=== PATIENT | male | born 1950 | race Caucasian/White ===

== ENCOUNTER → 2017-05-12 | Outpatient (CLI) | payer OTHER ==
[~2017-05-12] MED LIST: GLC500 PO; GLCSR5 PO; INSULIN REG; LRT5 PO; SIMV20TA2 PO
[2017-05-12 14:50] LABS: ALT/SGPT 28 U/L (12-78); AST/SGOT 20 U/L (15-37)
== END | disposition home or self-care (01) ==
LOC: C.LAB1850 12:41
PROVIDERS: ATTEND Internal Medicine Cardiovascular Disease
DX: I25.119 Atherosclerotic heart disease of native coronary artery with unspecified angina pectoris (principal); E78.5 Hyperlipidemia, unspecified; I77.810 Thoracic aortic ectasia; I10 Essential (primary) hypertension; R06.09 Other forms of dyspnea

== ENCOUNTER 2017-06-22 00:28 | Emergency (ER) | payer OTHER ==
[~2017-06-22] VITALS: Ht 180.3 cm; Wt 123.2 kg
[2017-06-22 00:31] VITALS: TEMP 36.8; Ht 180.3 cm; Wt 123.2 kg
[2017-06-22] MEDS ORDERED: SODIUM CHLORIDE 0.9% 500ML 500 ML IV STA (00:41)
[2017-06-22] MEDS ORDERED: MoRPHine SULFATE 4 MG/ML 1 ML CARP\\VIAL IV STA (00:41)
[2017-06-22] MEDS ORDERED: ONDANSETRON INJ 2 MG/ML 2 ML VIAL IV STA (00:41)
[2017-06-22 01:02] VITALS: O2SAT 95
[2017-06-22 01:08] LABS: BASO % 0.8 %; BASO ABS # 0.04 K/uL (0-0.2); COMPLETE YES; EOS % 2.6 %; HEMATOCRIT 38.3 % (42-52); IG% 0.4 %; LYMPH ABS # 2.07 K/uL (1.2-3.4); MEAN CELL VOLUME 86.1 fL (80-100); MEAN CORPUSCULAR HEMOGLOBIN 29.4 pg (25-34); MEAN CORPUSCULAR HGB CONC 34.2 g/dl (32-36); MEAN PLATELET VOLUME 10.1 fL (7.4-10.4); MONO % 10.7 %; NEUT % 46.5 %; PLATELET COUNT 111 K/uL (130-400); RED BLOOD COUNT 4.45 M/uL (4.7-6.1); WHITE BLOOD COUNT 5.31 K/uL (4.8-10.8)
[2017-06-22] MEDS ORDERED: GLC/500 PO (01:27)
[2017-06-22] MEDS ORDERED: LSN25 PO (01:27)
[2017-06-22] MEDS ORDERED: CRS/10 PO (01:27)
[2017-06-22] MEDS ORDERED: NTRGSL/4 UT (01:27)
[2017-06-22] MEDS ORDERED: RANO500T PO (01:28)
[2017-06-22] MEDS ORDERED: CLOP1TAB15 PO (01:28)
[2017-06-22] MEDS ORDERED: ASPI81TA28 PO (01:29)
[2017-06-22] MEDS ORDERED: METO100T44 PO (01:29)
[2017-06-22 01:31] LABS: ISTAT IONIZED CALCIUM 1.13 mmol/l (1.12-1.32)
[2017-06-22] MEDS ORDERED: CHOL1TAB42 PO (01:31)
[2017-06-22] MEDS ORDERED: HMLI7525 SC (01:31)
[2017-06-22] MEDS ORDERED: [UNRECOGNIZED DRUG - CODE] INJ (01:31)
[2017-06-22] MEDS ORDERED: POTA-74 PO (01:31)
[2017-06-22] MEDS ORDERED: FRS/40 PO (01:32)
[2017-06-22] MEDS ORDERED: OPTIRAY 320 IV PRN (01:45)
[2017-06-22 01:49] LABS: ALKALINE PHOSPHATASE 78 U/L (45-117); ALT/SGPT 23 U/L (12-78); AST/SGOT 18 U/L (15-37); BLOOD UREA NITROGEN 18 mg/dl (7-18); BUN/CREATININE RATIO 15.6 (10-20); CALCIUM 8.9 mg/dl (8.5-10.1); CARBON DIOXIDE 21 mmol/L (21-32); CHLORIDE 109 mmol/L (98-107); CREATININE 1.17 mg/dl (0.60-1.40); GLUCOSE 213 mg/dl (70-99); POTASSIUM 4.2 mmol/L (3.5-5.1); SODIUM 140 mmol/L (136-145)
[2017-06-22] MEDS ORDERED: OXYC1TAB3 PO (01:51)
[2017-06-22] MEDS ORDERED: ONDA4TAB10 SL (01:51)
[2017-06-22] MEDS ORDERED: ONDANSETRON HOME PACK 4MG OD TAB ONE (01:57)
[2017-06-22] MEDS ORDERED: OXYCODONE IR HOME PACK PO ONE ×2 (01:57→02:00)
[2017-06-22] MEDS ORDERED: ONDANSETRON HOME PACK 4MG OD TAB PO ONE (02:00)
--- NOTE | 2017-06-22 03:01 | EMERGENCY ROOM VISIT NOTE ---
History First contact with patient: 00:37 Chief Complaint: BACK PAIN Stated Complaint: PAIN IN BACK History of Present Illness The patient is a 66 year old male who presents to the Emergency Room with complaints of left side and lower abdominal pain for the past several hours described as aching, ranging in severity 6 out of 10. Nothing makes it better or worse. It does not radiate. Patient has had diverticulitis and kidney stones before. He states this feels somewhat like his diverticulitis. Colonoscopy earlier this year showed diverticuli with polyps. Patient denies chest pain, dyspnea, fever, chills, nausea, vomiting, diarrhea, urinary symptoms , testicular pain, penile pain. Patient states he has an aortic aneurysm that is 4.[address] Hart. He last saw him 2 months ago. Patient just moved to the area. Review of Systems See HPI for pertinent positives & negatives. A total of 10 systems reviewed and were otherwise negative. Past Medical/Surgical History Kidney stones, diabetes, diverticulitis, coronary disease, aortic aneurysm that is 4.5 cm, appendectomy Social History Smoking Status: Former Smoker Alcohol Use: occasionally Drug Use: none Marital Status: Housing Status: lives with family Current/Historical Medications Scheduled Aspirin (Aspirin Ec), 81 MG PO QPM Bevacizumab (Avastin), 1 DOSE INJ Q 5-6 WEEKS Cholecalciferol (Vitamin D), 5,000 UNIT PO DAILY Clopidogrel (Plavix), 75 MG PO QPM Furosemide (Lasix), 40 MG PO 3XWK Insulin Lispro 75/25 (Humalog Mix 75/25), 44 UNITS SC AMPM Lisinopril (Lisinopril), 2.5 MG PO QAM Metformin Hcl (Glucophage), 500 MG PO QPM Metoprolol Succ (Toprol Xl) (Toprol-Xl ), 100 MG PO BID Nitroglycerin (Nitrostat), 0.4 MG UT UD Ondasetron Odt (Zofran Odt), 4 MG SL Q6H Ranolazine (Ranexa), 500 MG PO AMPM Rosuvastatin Calcium (Crestor), 10 MG PO QPM Scheduled PRN Oxycodone Immediate Rel Tab (Roxicodone Ir), 1-2 TAB PO Q4H PRN for Severe Pain Miscellaneous Medications Potassium Chloride (Potassium Chloride Er), 10 MEQ PO Physical Exam Vital Signs Date Time Temp Pulse Resp B/P (MAP) Pulse Ox O2 Delivery O2 Flow Rate FiO2 06/22/17 01:53 73 18 137/78 95 Room Air 06/22/17 01:02 95 Room Air 06/22/17 01:02 77 06/22/17 00:31 36.8 71 18 168/78 96 Room Air Physical Exam VITALS: Vitals are noted on the nurse's note and reviewed by myself. Vital signs hypertensive GENERAL: Pleasant male, in no acute distress, nondiaphoretic, well-developed well-nourished. SKIN: The skin was without rashes, erythema, edema, or bruising. There is no tenting of the skin. Capillary reflex less than 2 seconds. HEAD: Normocephalic atraumatic. EARS: External auditory canals clear, tympanic membranes pearly salinas without erythema or effusion bilaterally. EYES: Pupils equal round and reactive to light and accommodation. Conjunctivae without injection, sclerae without icterus. Extraocular movements intact. NOSE: Patent, turbinates without inflammation or discharge. MOUTH: Mucous membranes moist. Pharynx without erythema or exudate. Uvula midline. Airway patent. Tongue does not deviate. NECK: Supple without nuchal rigidity. No lymphadenopathy. No thyromegaly. Cervical spine is nontender. No JVD. HEART: Regular rate and rhythm without murmurs gallops or rubs. LUNGS: Clear to auscultation bilaterally without wheezes, rales or rhonchi. No dullness to percussion. No retractions or accessory muscle use. ABDOMEN: Positive bowel sounds x 4. Normal tympanic percussion. Soft, protuberant, obese, tender to palpation left lower quadrant, no CVA tenderness, without masses or organomegaly. Oliva sign negative. No guarding or rebound tenderness. MUSCULOSKELETAL: No muscle atrophy, erythema, or edema noted. NEURO: Patient was alert and oriented to person place and time. Normal sensation to light and sharp touch. No focal neurological deficits. Medical Decision & Procedures Laboratory Results 06/22/17 00:50 Red Blood Count 4.45, Mean Corpuscular Volume 86.1, Mean Corpuscular Hemoglobin 29.4, Mean Corpuscular Hemoglobin Concent 34.2, Mean Platelet Volume 10.1, Neutrophils (%) (Auto) 46.5, Lymphocytes (%) (Auto) 39.0, Monocytes (%) (Auto) 10.7, Eosinophils (%) (Auto) 2.6, Basophils (%) (Auto) 0.8, Neutrophils # (Auto ) 2.47, Lymphocytes # (Auto) 2.07, Monocytes # (Auto) 0.57, Eosinophils # (Auto ) 0.14, Basophils # (Auto) 0.04 06/22/17 00:50 Test 06/22/17 00:41 06/22/17 00:50 06/22/17 01:17 White Blood Count 5.31 K/uL (4.8-10.8) Red Blood Count 4.45 M/uL (4.7-6.1) Hemoglobin 13.1 g/dL (14.0-18.0) Hematocrit 38.3 % (42-52) Mean Corpuscular Volume 86.1 fL (80-100) Mean Corpuscular Hemoglobin 29.4 pg (25-34) Mean Corpuscular Hemoglobin Concent 34.2 g/dl (32-36) Platelet Count 111 K/uL (130-400) Mean Platelet Volume 10.1 fL (7.4-10.4) Neutrophils (%) (Auto) 46.5 % Lymphocytes (%) (Auto) 39.0 % Monocytes (%) (Auto) 10.7 % Eosinophils (%) (Auto) 2.6 % Basophils (%) (Auto) 0.8 % Neutrophils # (Auto) 2.47 K/uL (1.4-6.5) Lymphocytes # (Auto) 2.07 K/uL (1.2-3.4) Monocytes # (Auto) 0.57 K/uL (0.11-0.59) Eosinophils # (Auto) 0.14 K/uL (0-0.5) Basophils # (Auto) 0.04 K/uL (0-0.2) RDW Standard Deviation 41.5 fL (36.4-46.3) RDW Coefficient of Variation 13.2 % (11.5-14.5) Immature Granulocyte % (Auto) 0.4 % Immature Granulocyte # (Auto) 0.02 K/uL (0.00-0.02) Est Creatinine Clear Calc Drug Dose 84.1 ml/min Estimated GFR () 75.4 Estimated GFR (Non- 65.0 BUN/Creatinine Ratio 15.6 (10-20) Calcium Level 8.9 mg/dl (8.5-10.1) Total Bilirubin 0.4 mg/dl (0.2-1) Direct Bilirubin mg/dl (0-0.2) Aspartate Amino Transf (AST/SGOT) 18 U/L (15-37) Alanine Aminotransferase (ALT/SGPT) 23 U/L (12-78) Alkaline Phosphatase 78 U/L (45-117) Total Protein 7.8 gm/dl (6.4-8.2) Albumin 3.6 gm/dl (3.4-5.0) Lipase 350 U/L (73-393) Chemistry Specimen Hemolysis Bedside Hemoglobin 15.0 g/dl (14.0-18.0) Bedside Hematocrit 44 % (42-52) Bedside Sodium 142 mEq/L (135-144) Bedside Potassium 3.7 mEq/L (3.3-5.0) Bedside Chloride 110 mEq/L (101-112) Bedside Total CO2 21 mEq/l (24-31) Anion Gap 17.0 mmol/L (16-25) Bedside Blood Urea Nitrogen 19 mg/dl (7-18) Bedside Creatinine 1.0 mg/dl (0.6-1.3) Bedside Glucose (other) 205 mg/dl (70-99) Bedside Ionized Calcium (Oliver) 1.13 mmol/l (1.12-1.32) Medications Administered Medications (Trade) Dose Ordered Sig/Chong Route Start Time Stop Time Status Last Admin Dose Admin Morphine Sulfate (MoRPHine SULFATE INJ) 4 mg NOW STAT IV 06/22/17 00:41 06/22/17 00:45 DC 06/22/17 00:53 4 MG Ondansetron HCl (Zofran Inj) 4 mg NOW STAT IV 06/22/17 00:41 06/22/17 00:45 DC 06/22/17 00:52 4 MG Sodium Chloride 500 ml @ 999 mls/hr Q31M STAT IV 06/22/17 00:41 06/22/17 01:11 DC 06/22/17 00:52 999 MLS/HR ED Course Prior records/ancillary studies reviewed. Triage Nursing notes reviewed. Additional history obtained from the family. The patient's history was concerning for left lower quadrant pain. Differential diagnosis: Etiologies such as renal colic, appendicitis, diverticulitis, mesenteric ischemia, aortic pathology, infections, inflammatory bowel disease, PUD, biliary pathology, UTI, as well as others were entertained. Physical examination findings: As above. ER treatment provided: IV fluids, morphine, Zofran On reassessment the patient felt better. Diagnostic interpretation by me: The labs revealed no leukocytosis.. There was no sign of UTI. Hyperglycemia without DKA Imaging studies: CT of the abdomen and pelvis as read by stat radiology and reviewed by myself and concerning for left renal colic It appears that the patient has isolated renal colic from a left sided stone. Patient's pain was under control. He was advised to take medications as directed and to follow-up urology in a few days and to strain his urine until stone passes. He is advised to return to the ER immediately for fevers, vomiting, severe pain, worsening signs or symptoms or as needed. Patient does not have acute abdomen on exam. He is well-appearing. He is tolerating fluids. He was advised to monitor his blood sugar. By the evaluation outlined above emergent etiologies such as appendicitis, diverticulitis, mesenteric ischemia, aortic pathology, infections, inflammatory bowel disease, PUD, biliary pathology, UTI, as well as others were deemed relatively unlikely. The pt informed about the findings as listed above. All questions were answered and pleased with the treatment. Return instructions were outlined and the patient was discharged in stable condition. Outpatient prescription management: Oxy IR 5mg 1-2 po Q4 hrs prn Zofran Referral: The pt was referred to [facility] for follow up care regarding their stone. or The patient was referred back to their primary care physician for follow-up in 2 to 3 days for a recheck of the current condition. Case reviewed with my attending Medical Decision As above Medication Reconcilliation Current Medication List: was personally reviewed by me Blood Pressure Screening Patient's blood pressure: Elevated blood pressure Blood pressure disposition: Elevated BP felt to be situational Impression Primary Impression: Renal colic on left side Departure Information Dispostion Home / Self-Care Condition GOOD Prescriptions Ondasetron Odt (ZOFRAN ODT) 4 Mg Tab 4 MG SL Q6H, #10 TAB Prov: Gema Gill ., NIKKI 06/22/17 Oxycodone Immediate Rel Tab (ROXICODONE IR) 5 Mg Tab 1-2 TAB PO Q4H Y for Severe Pain, #24 TAB Prov: Jairo Gema ., NIKKI 06/22/17 Referrals Mitchell Amor MD Forms HOME CARE DOCUMENTATION FORM, Work Instructions, Return To Work: 2 days IMPORTANT VISIT INFORMATION Patient Instructions Kidney Stones - [facility], My [facility] Additional Instructions DO NOT drive, drink alcohol, operate machinery, or perform dangerous activities today. You were given medications in the ER that can affect your ability to safely function or operate a vehicle. Oxycodone Immediate Release (OxyIR) 5mg: Take 1-2 pills every four hours for pain. Avoid alcohol, operating machinery or dangerous equipment, working on ladders or roofs, DRIVING, or situations where being under the influence may be dangerous. It is recommended to use an [id number] stool softener such as Colace, 100mg twice daily while taking this medication to avoid constipation. Zofran 4 mg: Take one every six hours as needed for nausea. Avoid alcohol, operating machinery or dangerous equipment, working on ladders or roofs, DRIVING , or situations where being under the influence may be dangerous. Ibuprofen(Motrin, Advil) may be used for fever or pain. Use 600mg every six hours as needed. Take with food. Avoid using more than 2400mg in a 24 hour period. Do not use 2400mg per day for more than three consecutive days without physician direction. Prolonged inappropriate use can lead to stomach upset or ulcers. This medication can be taken if you need to drive, work, or perform activities which may be dangerous when taking narcotic pain medication. (AND/OR) Acetaminophen(Tylenol) may be used for fever or pain. Use 1000mg every six hours as needed. Avoid using more than 3000mg in a 24 hour period. This medication can be taken if you need to drive, work, or perform activities which may be dangerous when taking narcotic pain medication. Strain your urine and collect all the stones or debris for the urologists. Rest and avoid strenuous activity until your stone passes and symptoms resolve. Drink plenty of fluids. Continue current medications. Return to the ER for worsening abdominal or back pain, vomiting, fevers, passing out, or as needed. Follow up with urology in 2-3 days, call for an appointment. Work Instructions Return To Work: 2 days
[2017-06-22 03:04] VITALS: BP 138/82; PULSE 76; O2SAT 96
[2017-06-22 03:35] LABS: URINE APPEARANCE CLOUDY (CLEAR); URINE BILIRUBIN NEG (NEG); URINE COLOR ORANGE; URINE EPITHELIAL CELL AUTO 0-5 /lpf (0-5); URINE NITRITE NEG (NEG); URINE SPECIFIC GRAVITY 1.041 (1.000-1.030); UROBILINOGEN NEG (NEG); ZZUR CULT IF INDIC CLEAN CATCH NO
[2017-06-22 03:36] LABS: MANUAL MICROSCOPIC REQUIRED? NO; REVIEW REQ? NO
--- NOTE | 2017-06-22 07:03 | EMERGENCY ROOM VISIT NOTE ---
ED Visit Note First contact with patient: 00:37 I have personally evaluated and examined this patient. I agree with assessment and plan of Sabina Gill PA-C. Left flank pain and CT with stone. No evidence of infected stone. Stable and feeling much better.
--- NOTE | 2017-06-22 07:40 | DIAGNOSTIC IMAGING REPORT ---
ABD/PELVIS IV CONTRAST ONLY CT DOSE: 1557.74 mGy.cm HISTORY: Pelvic pain llq pain/flank, ? divetic/stone TECHNIQUE: Multiaxial CT images of the abdomen and pelvis were performed following the use of intravenous contrast. A dose lowering technique was utilized adhering to the principles of ALARA. COMPARISON STUDY: 01/05/2008 FINDINGS: Lung bases are clear. Mild fatty replacement of liver. Stable calcified splenic granuloma. Mild fatty replacement of the pancreas. Right kidney enhances uniformly. Mild left renal hydronephrosis. Mild left renal cortical scarring. 3 mm mid left ureteral calculus. Nonobstructive bowel pattern. Normal appendix. Bladder is midline. Several scattered colonic diverticuli with no evidence for diverticulitis. IMPRESSION: 1. Partially obstructing calculus mid left ureter. 2. Mild left hydroureteronephrosis. The above report was generated using voice recognition software. It may contain grammatical, syntax or spelling errors. Electronically signed by: Aidan Walters M.D. 06/22/2017 7:39 AM Dictated Date/Time: 06/22/2017 7:31 AM
== END 2017-06-22 03:00 | disposition home or self-care (01) ==
LOC: C.EDB 00:29
DX: N13.2 Hydronephrosis with renal and ureteral calculous obstruction (principal); K57.90 Diverticulosis of intestine, part unspecified, without perforation or abscess without bleeding; Z87.891 Personal history of nicotine dependence; Z79.899 Other long term (current) drug therapy

== ENCOUNTER 2017-06-23 01:10 | Observation (INO) | payer OTHER ==
[2017-06-23] VITALS (8 sets, daily range): BP systolic 99–162; BP diastolic 56–76; PULSE 64–75; TEMP 36.6–37; O2SAT 93–95; Ht 180.3 cm; Wt 122.9 kg
[~2017-06-23] VITALS: Ht 180.3 cm; Wt 122.9 kg
[~2017-06-23 01:10] MED LIST changes: +ASPI81TA28 PO; +CHOL1TAB42 PO; +CLOP1TAB15 PO; +CRS/10 PO; +FRS/40 PO; +GLC/500 PO; -GLC500 PO; -GLCSR5 PO; +HMLI7525 SC; -INSULIN REG; -LRT5 PO; +LSN25 PO; +METO100T44 PO; +NTRGSL/4 UT; +ONDA4TAB10 SL; +OXYC1TAB3 PO; +POTA-74 PO; +RANO500T PO; -SIMV20TA2 PO; +[UNRECOGNIZED DRUG - CODE] INJ
[2017-06-23] MEDS ORDERED: HYDROmorphone INJ 2 MG/ML SYR/VIAL IV STA (01:17)
[2017-06-23] MEDS ORDERED: KETOROLAC TROMETHAMINE 30 MG/ML VIAL IV STA (01:17)
[2017-06-23] MEDS ORDERED: ONDANSETRON INJ 2 MG/ML 2 ML VIAL IV STA (01:17)
[2017-06-23 01:56] LABS: HEMATOCRIT 46.6 % (42-52); MEAN CELL VOLUME 86.1 fL (80-100); MEAN CORPUSCULAR HEMOGLOBIN 28.8 pg (25-34); MEAN CORPUSCULAR HGB CONC 33.5 g/dl (32-36); MEAN PLATELET VOLUME 9.8 fL (7.4-10.4); PLATELET COUNT 211 K/uL (130-400); RED BLOOD COUNT 5.41 M/uL (4.7-6.1); WHITE BLOOD COUNT 9.47 K/uL (4.8-10.8)
[2017-06-23 01:59] LABS: BLOOD UREA NITROGEN 18 mg/dl (7-18); BUN/CREATININE RATIO 12.1 (10-20); CALCIUM 8.7 mg/dl (8.5-10.1); CARBON DIOXIDE 24 mmol/L (21-32); CHLORIDE 107 mmol/L (98-107); CREATININE 1.52 mg/dl (0.60-1.40); GLUCOSE 249 mg/dl (70-99); SODIUM 139 mmol/L (136-145)
[2017-06-23 02:01] LABS: BASO % 0.4 %; BASO ABS # 0.04 K/uL (0-0.2); COMPLETE YES; IG% 0.4 %; LYMPH % 24.5 %; LYMPH ABS # 2.32 K/uL (1.2-3.4); MONO % 11.3 %; NEUT % 61.4 %
[2017-06-23] MEDS ORDERED: HYDROmorphone INJ 0.5 MG/0.5 ML SYR IV STA (03:13)
--- NOTE | 2017-06-23 04:22 | EMERGENCY ROOM VISIT NOTE ---
History First contact with patient: :17 Chief Complaint: KIDNEY STONE Stated Complaint: KIDNEY STONE History of Present Illness The patient is a 66 year old male who presents to the Emergency Room with complaints of ongoing left flank side pain that radiates to his groin for the past day he was seen by myself yesterday and diagnosed kidney stone. Patient states the pain meds are not helping. Pain currently 8 out of 10. Nothing makes it better or worse. The pain radiates to his groin. Patient denies chest pain, dyspnea, fever, chills, cough, congestion. No other new complaints per patient. Review of Systems See HPI for pertinent positives & negatives. A total of 10 systems reviewed and were otherwise negative. Past Medical/Surgical History Kidney stones, diabetes, diverticulitis, coronary disease, aortic aneurysm that is 4.5 cm, appendectomy Social History Smoking Status: Former Smoker Alcohol Use: occasionally Drug Use: none Marital Status: Housing Status: lives with family Current/Historical Medications Scheduled Aspirin (Aspirin Ec), 81 MG PO QPM Bevacizumab (Avastin), 1 DOSE INJ Q 5-6 WEEKS Cholecalciferol (Vitamin D), 5,000 UNIT PO DAILY Clopidogrel (Plavix), 75 MG PO QPM Furosemide (Lasix), 40 MG PO 3XWK Insulin Lispro 75/25 (Humalog Mix 75/25), 44 UNITS SC AMPM Lisinopril (Lisinopril), 2.5 MG PO QAM Metformin Hcl (Glucophage), 500 MG PO QPM Metoprolol Succ (Toprol Xl) (Toprol-Xl ), 100 MG PO BID Nitroglycerin (Nitrostat), 0.4 MG UT UD Ondasetron Odt (Zofran Odt), 4 MG SL Q6H Ranolazine (Ranexa), 500 MG PO AMPM Rosuvastatin Calcium (Crestor), 10 MG PO QPM Scheduled PRN Oxycodone Immediate Rel Tab (Roxicodone Ir), 1-2 TAB PO Q4H PRN for Severe Pain Miscellaneous Medications Potassium Chloride (Potassium Chloride Er), 10 MEQ PO Physical Exam Vital Signs Date Time Temp Pulse Resp B/P (MAP) Pulse Ox O2 Delivery O2 Flow Rate FiO2 06/23/17 03:24 69 18 122/58 95 06/23/17 01:36 87 18 146/96 92 06/23/17 01:15 36.6 89 22 159/96 98 Room Air Physical Exam VITALS: Vitals are noted on the nurse's note and reviewed by myself. Vital signs hypertensive. GENERAL: Pleasant male who appears in pain, in no acute distress, nondiaphoretic , well-developed well-nourished. SKIN: The skin was without rashes, erythema, edema, or bruising. There is no tenting of the skin. Capillary reflex less than 2 seconds. HEAD: Normocephalic atraumatic. EARS: External auditory canals clear, tympanic membranes pearly salinas without erythema or effusion bilaterally. EYES: Pupils equal round and reactive to light and accommodation. Conjunctivae without injection, sclerae without icterus. Extraocular movements intact. NOSE: Patent, turbinates without inflammation or discharge. MOUTH: Mucous membranes moist. Pharynx without erythema or exudate. Uvula midline. Airway patent. Tongue does not deviate. NECK: Supple without nuchal rigidity. No lymphadenopathy. No thyromegaly. Cervical spine is nontender. No JVD. HEART: Regular rate and rhythm LUNGS: Clear to auscultation bilaterally without wheezes, rales or rhonchi. No dullness to percussion. No retractions or accessory muscle use. ABDOMEN: Positive bowel sounds x 4. Normal tympanic percussion. Soft, protuberant, obese, no CVA tenderness, nontender, without masses or organomegaly. Oliva sign negative. No guarding or rebound tenderness. MUSCULOSKELETAL: No muscle atrophy, erythema, or edema noted. NEURO: Patient was alert and oriented to person place and time. Normal sensation to light and sharp touch. No focal neurological deficits. Medical Decision & Procedures Laboratory Results 06/23/17 01:30 Red Blood Count 5.41, Mean Corpuscular Volume 86.1, Mean Corpuscular Hemoglobin 28.8, Mean Corpuscular Hemoglobin Concent 33.5, Mean Platelet Volume 9.8, Neutrophils (%) (Auto) 61.4, Lymphocytes (%) (Auto) 24.5, Monocytes (%) (Auto) 11.3, Eosinophils (%) (Auto) 2.0, Basophils (%) (Auto) 0.4, Neutrophils # (Auto ) 5.81, Lymphocytes # (Auto) 2.32, Monocytes # (Auto) 1.07, Eosinophils # (Auto ) 0.19, Basophils # (Auto) 0.04 06/23/17 01:30 Test 06/23/17 01:30 White Blood Count 9.47 K/uL (4.8-10.8) Red Blood Count 5.41 M/uL (4.7-6.1) Hemoglobin 15.6 g/dL (14.0-18.0) Hematocrit 46.6 % (42-52) Mean Corpuscular Volume 86.1 fL (80-100) Mean Corpuscular Hemoglobin 28.8 pg (25-34) Mean Corpuscular Hemoglobin Concent 33.5 g/dl (32-36) Platelet Count 211 K/uL (130-400) Mean Platelet Volume 9.8 fL (7.4-10.4) Neutrophils (%) (Auto) 61.4 % Lymphocytes (%) (Auto) 24.5 % Monocytes (%) (Auto) 11.3 % Eosinophils (%) (Auto) 2.0 % Basophils (%) (Auto) 0.4 % Neutrophils # (Auto) 5.81 K/uL (1.4-6.5) Lymphocytes # (Auto) 2.32 K/uL (1.2-3.4) Monocytes # (Auto) 1.07 K/uL (0.11-0.59) Eosinophils # (Auto) 0.19 K/uL (0-0.5) Basophils # (Auto) 0.04 K/uL (0-0.2) RDW Standard Deviation 41.0 fL (36.4-46.3) RDW Coefficient of Variation 13.1 % (11.5-14.5) Immature Granulocyte % (Auto) 0.4 % Immature Granulocyte # (Auto) 0.04 K/uL (0.00-0.02) Red Blood Cell Morphology Unremarkable Anion Gap 8.0 mmol/L (3-11) Estimated GFR () 54.9 Estimated GFR (Non- 47.4 BUN/Creatinine Ratio 12.1 (10-20) Calcium Level 8.7 mg/dl (8.5-10.1) Medications Administered Medications (Trade) Dose Ordered Sig/Chong Route Start Time Stop Time Status Last Admin Dose Admin Ketorolac Tromethamine (Toradol Inj) 30 mg NOW STAT IV 06/23/17 01:17 06/23/17 01:19 DC 06/23/17 01:33 30 MG Hydromorphone HCl (Dilaudid Inj) 1 mg ONE STAT IV 06/23/17 01:17 06/23/17 01:19 DC 06/23/17 01:33 1 MG Ondansetron HCl (Zofran Inj) 4 mg NOW STAT IV 06/23/17 01:17 06/23/17 01:19 DC 06/23/17 01:32 4 MG ED Course Prior records/ancillary studies reviewed. Triage Nursing notes reviewed. Additional history obtained from the family. The patient's history was concerning for left flank pain. Differential diagnosis: Etiologies such as renal colic, appendicitis, diverticulitis, mesenteric ischemia, aortic pathology, infections, inflammatory bowel disease, PUD, biliary pathology, UTI, as well as others were entertained. Physical examination findings: As above. ER treatment provided: Toradol, Dilaudid, Zofran On reassessment the patient felt better. Diagnostic interpretation by me: The labs revealed no leukocytosis slightly elevated creatinine, hyperglycemia without DKA. Imaging studies: CT of the abdomen and pelvis as above. [~ rep ct add3]] ABD/PELVIS IV CONTRAST ONLY CT DOSE: 1557.74 mGy.cm HISTORY: Pelvic pain llq pain/flank, ? divetic/stone TECHNIQUE: Multiaxial CT images of the abdomen and pelvis were performed following the use of intravenous contrast. A dose lowering technique was utilized adhering to the principles of ALARA. COMPARISON STUDY: 01/05/2008 FINDINGS: Lung bases are clear. Mild fatty replacement of liver. Stable calcified splenic granuloma. Mild fatty replacement of the pancreas. Right kidney enhances uniformly. Mild left renal hydronephrosis. Mild left renal cortical scarring. 3 mm mid left ureteral calculus. Nonobstructive bowel pattern. Normal appendix. Bladder is midline. Several scattered colonic diverticuli with no evidence for diverticulitis. IMPRESSION: 1. Partially obstructing calculus mid left ureter. 2. Mild left hydroureteronephrosis. The above report was generated using voice recognition software. It may contain grammatical, syntax or spelling errors. Electronically signed by: Aidan Walters M.D. RENAL: Comparison: CT abdomen and pelvis 06/22/17 Mild left hydronephrosis. Question 5 mm stone at left lower pole but this was not apparent on prior contrast-enhanced CT of abdomen and pelvis. Evaluation of bladder limited by underdistention. Echogenic dependent material in the bladder may represent hemorrhage and/or stone. Size is larger than previously visualized left ureteral stone and therefore this is unlikely to represent just the previously seen left ureteral stone having extended to the left ureterovesical junction, although this is also possible. No ureteral jets visualized. Evaluation of bladder limited by underdistention. Consultation: A consultation was placed with Dr. Del Cid, hospitalist. The case was discussed and diagnostics were reviewed. The patient was evaluated in the ER for further treatment. It appears that the patient has isolated renal colic from a left sided stone. Patient's pain was still quite severe. He will be evaluated by medicine for possible admission. By the evaluation outlined above emergent etiologies such as appendicitis, diverticulitis, mesenteric ischemia, aortic pathology, inflammatory bowel disease, PUD, biliary pathology, as well as others were deemed relatively unlikely. The pt informed about the findings as listed above. All questions were answered and pleased with the treatment. Case reviewed with my attending Medical Decision As above Medication Reconcilliation Current Medication List: was personally reviewed by me Blood Pressure Screening Patient's blood pressure: Elevated blood pressure Blood pressure disposition: Elevated BP felt to be situational Impression Primary Impression: Renal colic on left side Additional Impression: Intractable pain Departure Information Dispostion Being Evaluated By Hospitalist Condition GOOD Referrals Zunilda Perez M.D. (PCP) Patient Instructions My [facility] Problem Qualifiers
[2017-06-23] MEDS ORDERED: ALUMINUM/MAGNESIUM/SIMETH (MAALOX MAX) 30 ML UDC PO STA (04:40)
[2017-06-23] MEDS ORDERED: ONDANSETRON INJ 2 MG/ML 2 ML VIAL IV PRN (04:45)
[2017-06-23] MEDS ORDERED: MoRPHine SULFATE 4 MG/ML 1 ML CARP\\VIAL IV PRN (04:45)
[2017-06-23] MEDS ORDERED: ACETAMINOPHEN 325 MG TAB PO PRN (04:45)
[2017-06-23] MEDS ORDERED: ALUMINUM/MAGNESIUM/SIMETH (MAALOX MAX) 30 ML UDC PO PRN (04:45)
[2017-06-23] MEDS ORDERED: NITROGLYCERIN 0.4 MG SL PER TAB CHARGE UT SCH (04:45)
[2017-06-23] MEDS ORDERED: OXYCODONE HCL IR 5 MG TAB (IMMEDIATE RELEASE) PO PRN (04:45)
[2017-06-23] MEDS ORDERED: ONDANSETRON 4MG OD TAB SL PRN (04:45)
[2017-06-23] MEDS ORDERED: MAGNESIUM HYDROXIDE SUSP 30 ML UDC PO PRN (04:45)
[2017-06-23] MEDS ORDERED: ALUMINUM/MAGNESIUM SUSP 30 ML UDC ONE (05:17)
[2017-06-23] MEDS ORDERED: GLUCOSE 40% GEL 15 GM TUBE PO PRN (05:30)
[2017-06-23] MEDS ORDERED: PATIENT'S HEIGHT AND/OR WEIGHT NEEDED SCH (05:30)
[2017-06-23] MEDS ORDERED: GLUCOSE 10 TABS/TUBE PO PRN (05:30)
[2017-06-23] MEDS ORDERED: DEXTROSE 50% 50 ML SYR IV PRN (05:30)
[2017-06-23] MEDS ORDERED: GLUCAGON FOR INJ 1 MG VIAL SQ PRN (05:30)
[2017-06-23] MEDS ORDERED: IV FLUIDS COMPLETED PRN (05:45)
[2017-06-23] MEDS: SODIUM CHLORIDE 0.9% 1000ML 1,000 ML IV SCH ×2 (06:25→15:50)
[2017-06-23 06:32] LABS: ESTIMATED AVERAGE GLUCOSE 258 mg/dl; HA1C FLAG Normal (Normal)
--- NOTE | 2017-06-23 07:11 | DIAGNOSTIC IMAGING REPORT ---
(RENAL)RETROPERITON COMP HISTORY: 66 years-old Male left flank pain, known stone acute left flank pain COMPARISON: CT 06/22/2017 TECHNIQUE: Multiple real-time sonogram images of the kidneys and urinary bladder were obtained assessing grayscale appearance and color flow FINDINGS: Right kidney measures 14.5 x 6.0 x 6.3 cm and appears to be unremarkable with mild cortical lobulations. Increased echogenicity of the liver suspicious for fatty infiltration. Left kidney measures 13.2 x 7.7 x 5.4 cm. Mild left-sided hydronephrosis is again seen. Echogenic focus of the inferior pole left kidney with truncal artifact is noted, 4 mm. The bladder is decompressed and somewhat sub-visualized. Echogenic focus with twinkle artifact is noted within the region of the left ureterovesicular junction. Mild layering debris within the bladder. IMPRESSION: 1. Persistent mild hydronephrosis of the left kidney with echogenic material within the region of the left ureterovesicular junction suspicious for progression of left ureteral calculus. There is also some layering debris within the collapsed urinary bladder. 2. Echogenic 4 mm focus of the inferior pole left kidney suggests calculus, however no correlate seen on comparison CT. This may reflect echogenic renal sinus fat. 3. Unremarkable sonographic appearance of the right kidney The above report was generated using voice recognition software. It may contain grammatical, syntax or spelling errors. Electronically signed by: Low Zavaleta M.D. 06/23/2017 7:10 AM Dictated Date/Time: 06/23/2017 6:59 AM
--- NOTE | 2017-06-23 07:19 | EMERGENCY ROOM VISIT NOTE ---
ED Visit Note First contact with patient: 01:17 I have personally evaluated and examined this patient. I agree with assessment and plan of Sabina Gill PA-C. Continued left flank pain despite adequate attempt with PO narcotics. Stable and without evidence sepsis.
[2017-06-23] MEDS: RANOLAZINE 500 MG ER TAB PO SCH ×2 (08:37→21:01)
[2017-06-23] MEDS: TAMSULOSIN HCL 0.4 MG CAP PO SCH (08:37)
[2017-06-23] MEDS: CHOLECALCIFEROL 1000 INTER.UNIT TAB PO SCH (08:38)
[2017-06-23] MEDS: METOPROLOL SUCC 50MG EXT REL TAB PO SCH ×2 (08:38→21:01)
[2017-06-23 08:46] LABS: URINE APPEARANCE CLEAR (CLEAR); URINE COLOR DK YELLOW; URINE NITRITE NEG (NEG); URINE SPECIFIC GRAVITY 1.037 (1.000-1.030); UROBILINOGEN NEG (NEG); ZZUR CULT IF INDIC CLEAN CATCH NO
[2017-06-23 08:48] LABS: MANUAL MICROSCOPIC REQUIRED? NO; REVIEW REQ? NO
[2017-06-23 08:49] LABS: URINE BILIRUBIN NEG (NEG)
[2017-06-23] MEDS: INSULIN LISPRO 75% / 25% SC SCH ×2 (08:51→17:46)
--- NOTE | 2017-06-23 09:11 | HISTORY & PHYSICAL EXAMINATION ---
DATE OF ADMISSION: 06/23/2017 CHIEF COMPLAINT: Left flank pain. HISTORY OF PRESENT ILLNESS: This is a 66-year-old male with past medical history significant for CAD status post stent, diabetes, hypertension, hyperlipidemia,REED and a history of kidney stones, presents with left flank pain. The patient was in the ER yesterday and the CAT scan showed partially obstructing 3mm mid left ureteral stone and was discharged home to follow up as an outpatient with urology. But after the patient went home, late in the afternoon, started having severe left flank pain, associated with some nausea and he was brought back to the hospital. Currently, the pain is controlled with a pain medication, resting comfortably, hemodynamically stable. Denies any chest pain, no shortness of breath, no cough, no fever, no chills, no headaches, no blurred vision, no dizziness, no sore throat, no abdominal pain. The patient is somewhat constipated. No blood in the urine, no blood in the stools. Appetite is okay. He has chronic shortness of breath from his heart disease. ALLERGIES: No known drug allergies. PAST MEDICAL HISTORY: As mentioned above. PAST SURGICAL HISTORY: Status post cardiac catheterization and stent placement, appendectomy, hernia surgery. MEDICATIONS: The patient is on Lasix 40 mg p.o. 3 times weekly, potassium chloride 20 mEq p.o. with Lasix, lisinopril 2.5 mg q.a.m., metformin 500 mg p.o. q.p.m., Avastin injection every 5-6 weeks, aspirin 81 mg p.o. daily, vitamin D 5000 units p.o. daily, Plavix 75 mg p.o. daily, Humalog mix 75/25, 44 units in the a.m. and p.m., Toprol-XL 100 mg p.o. b.i.d., nitroglycerin 0.4 mg p.o. as needed, Zofran 4 mg p.o. q.6 hours p.r.n., oxycodone IR 5 mg p.o. q.4 hours p.r.n., Ranexa 500 mg p.o. q.a.m. and p.m., Crestor 10 mg p.o. q.p.m. FAMILY HISTORY: Significant for mother had stroke and colon cancer. SOCIAL HISTORY: Remote history of smoking. History of tobacco use, he stopped since last January. Alcohol occasional. No drug use. Lives with his family. REVIEW OF SYMPTOMS: As per HPI. Rest of review of symptoms negative. PHYSICAL EXAMINATION: GENERAL: The patient is obese, not in distress. VITAL SIGNS: Temperature 36.6, pulse 69, respiratory rate 18, blood pressure 122/58, oxygen 95% on room air. HEENT: No pallor, no icterus. Pupils equal, round, and reactive to light. NECK: No JVD, no neck masses, no carotid bruits. CARDIOVASCULAR SYSTEM: S1, S2 heard, regular rate and rhythm, no murmur, no gallop. RESPIRATORY SYSTEM: Clear to auscultation bilaterally. No wheezing, no crackles. ABDOMEN: Soft, bowel sounds present, mild left CVA tenderness present. No guarding, no rigidity, no distention. CENTRAL NERVOUS SYSTEM: Cranial nerves II-XII grossly intact. Nonfocal. EXTREMITIES: No edema, no erythema. LABORATORY DATA AND DIAGNOSTIC STUDIES: WBC 9.4, hemoglobin 15.6, hematocrit 46.6, platelets 211. Sodium 137, potassium 4, chloride 107, bicarbonate 24, BUN 18, creatinine 1.5, serum glucose 249, calcium 8.7. Renal ultrasound, unofficial report shows 5 mm left ureteral stone and also a possible stone in the bladder. ASSESSMENT AND PLAN: This is a 66-year-old male who presents with left renal colic. 1. Left renal colic. A CAT scan of the abdomen and pelvis with IV contrast done yesterday showed 3 mm left mid ureteral stone. An ultrasound done today, unofficial report shows 5 mm ureteral stone and also a bladder stone. Currently, pain is controlled with pain medication. We will observe the patient in the hospital. Place him on IV fluids, Flomax, pain control, antiemetics, and consult urology for further recommendations. We will follow his urinalysis. The patient is afebrile and no leukocytosis, so we will hold the antibiotics for now. 2. Acute renal failure. The patient's creatinine was 1.1 yesterday, today his creatinine is 1.5. Starting on fluids. Holding lisinopril and Lasix. We will follow the labs. 3. History of coronary artery disease status post stents. Continue his home medications of aspirin, Plavix, beta-gulshan, and statin. Currently asymptomatic. 4. Diabetes. Continue his Humalog mix 75/25. Hold metformin. Place him on insulin sliding scale. Follow his HbA1c levels. Follow the blood sugars in the hospital. 5. Hypertension. Continue his Toprol-XL, holding the lisinopril and Lasix for his acute renal failure. We will monitor the blood pressure in the hospital. 6. Hyperlipidemia. Continue statin. 8. Hx of REED cpap q hs 9. Hx of aortic aneurysm. f/u with pcp 10. Deep venous thrombosis prophylaxis. Sequential compression devices for now. 11. Disposition: Observation on medical floor. Expect to discharge home and follow with his family doctor. Level 1 full code. MTDD
[2017-06-23] MEDS: INSULIN ASPART 100 UNITS/ML 3 ML PEN SC SCH ×4 (09:54→21:00)
--- NOTE | 2017-06-23 13:24 | Progress Note ---
Internal Med Progress Note Date of Service: Jun 23, 2017. Provider Documentation: SUBJECTIVE: Seen and examined at bedside States left flank pain resolved Denies chest pain, SOB, dizziness Family at bedside Offers no complaints OBJECTIVE: Vital Signs-as noted below Physical Exam: General Appearance:Obese, no apparent distress Head: normocephalic, Atraumatic Eyes: normal inspection, EOMI, PERRL Neck: supple, Trachea midline Respiratory/Chest: Decreased breath sounds, CTA Cardiovascular: S1, S2, No murmur Abdomen/GI:Soft, Non tender, Bowel sounds present Extremities/Musculoskelatal:normal inspection, Trace edema Neurologic/Psych:AAOX3, grossly no focal neurological deficits Skin: normal color, warm Lab data as noted below. ASSESSMENT & PLAN: Patient is a 66 yr male who presents with left renal colic. Left renal colic: CT ABD on 06/22: showed partially obstructing calculus mid left ureter and mild left hydroureteronephrosis. Renal USD:Persistent mild hydronephrosis of L kidney, 4 mm focus of the inferior pole left kidney suggests calculus Pain control IV fluids Urology consulted Continue Flomax, antiemetics UA: microhematuria, No signs of infections Trial of potassium citrate as per Urology as stone likely Uric acid Acute renal failure: Secondary to above Monitor renal function continue IV fluids H/O CAD S/P stents Continue aspirin, Plavix, beta-gulshan, statin, Ranexa Asymptomatic DM II: Uncontrolled A1C:10.6 Hold metformin Continue ISS along with his home Insulin regimen Hypertension: Continue Toprol-XL Hold lisinopril, Lasix Hyperlipidemia: Continue statin DVT Px: SCDs Disposition: Expect to discharge home when stable Vital Signs: Date Time Temp Pulse Resp B/P (MAP) Pulse Ox O2 Delivery O2 Flow Rate FiO2 06/23/17 11:22 36.6 67 18 125/71 (89) 94 Room Air 06/23/17 08:24 36.6 64 19 117/69 (85) 94 Room Air 06/23/17 08:00 36.6 69 19 117/69 (85) 94 Room Air 06/23/17 07:30 Room Air 06/23/17 06:45 99/58 (72) 06/23/17 06:10 99/56 (70) 06/23/17 05:30 36.8 75 20 162/69 93 Room Air 06/23/17 05:05 76 18 131/75 98 Room Air 06/23/17 03:24 69 18 122/58 95 06/23/17 01:36 87 18 146/96 92 06/23/17 01:15 36.6 89 22 159/96 98 Room Air Lab Results: Results Past 24 Hours Test 06/23/17 01:30 06/23/17 08:20 06/23/17 08:30 Range/Units White Blood Count 9.47 4.8-10.8 K/uL Red Blood Count 5.41 4.7-6.1 M/uL Hemoglobin 15.6 14.0-18.0 g/dL Hematocrit 46.6 42-52 % Mean Corpuscular Volume 86.1 80-100 fL Mean Corpuscular Hemoglobin 28.8 25-34 pg Mean Corpuscular Hemoglobin Concent 33.5 32-36 g/dl Platelet Count 211 130-400 K/uL Mean Platelet Volume 9.8 7.4-10.4 fL Neutrophils (%) (Auto) 61.4 % Lymphocytes (%) (Auto) 24.5 % Monocytes (%) (Auto) 11.3 % Eosinophils (%) (Auto) 2.0 % Basophils (%) (Auto) 0.4 % Neutrophils # (Auto) 5.81 1.4-6.5 K/uL Lymphocytes # (Auto) 2.32 1.2-3.4 K/uL Monocytes # (Auto) 1.07 0.11-0.59 K/uL Eosinophils # (Auto) 0.19 0-0.5 K/uL Basophils # (Auto) 0.04 0-0.2 K/uL RDW Standard Deviation 41.0 36.4-46.3 fL RDW Coefficient of Variation 13.1 11.5-14.5 % Immature Granulocyte % (Auto) 0.4 % Immature Granulocyte # (Auto) 0.04 0.00-0.02 K/uL Red Blood Cell Morphology Unremarkable Sodium Level 139 136-145 mmol/L Potassium Level 4.0 3.5-5.1 mmol/L Chloride Level 107 98-107 mmol/L Carbon Dioxide Level 24 21-32 mmol/L Anion Gap 8.0 3-11 mmol/L Blood Urea Nitrogen 18 7-18 mg/dl Creatinine 1.52 0.60-1.40 mg/dl Estimated GFR () 54.9 Estimated GFR (Non- 47.4 BUN/Creatinine Ratio 12.1 10-20 Random Glucose 249 70-99 mg/dl Estimated Average Glucose 258 mg/dl Hemoglobin A1c 10.6 4.5-5.6 % Calcium Level 8.7 8.5-10.1 mg/dl Bedside Glucose 223 70-99 mg/dl Urine Color DK YELLOW Urine Appearance CLEAR CLEAR Urine pH 5.0 4.5-7.5 Urine Specific [place] 1.037 1.000-1.030 Urine Protein TRACE NEG Urine Glucose (UA) 3+ NEG Urine Ketones NEG NEG Urine Occult Blood 3+ NEG Urine Nitrite NEG NEG Urine Bilirubin NEG NEG Urine Urobilinogen NEG NEG Urine Leukocyte Esterase NEG NEG Urine WBC (Auto) 1-5 0-5 /hpf Urine RBC (Auto) >30 0-4 /hpf Urine Hyaline Casts (Auto) 5-10 0-5 /lpf Urine Epithelial Cells (Auto) 10-20 0-5 /lpf Urine Bacteria (Auto) NEG NEG
--- NOTE | 2017-06-23 16:55 | Urology Consultation ---
History General Date of Service: Jun 23, 2017. Chief Complaint: left ureteral stone Primary Care Physician: Zunilda Perez M.D. Pt seen a urologist before?: Yes If yes, why?: stones History of Present Illness I am asked by Dr Del Cid to evaluate and treat patient for left ureteral kidney stone. He developed mild ot moderate pain yesterday and had er eval. IT showed a 3mm stone half way down the ureter with mild hydro. He was sent home with oral pain meds. HIs pain worsened during the night. Pain was incapacitating and dropped him to the floor. No fever. He returned to ER and renal ultrasound showed hydro. He is currently pain free. He has had about 7 stones over 10 years, some passed, some shocked one stented. He is very motivated to avoid surgery . Imaging Imaging: CT Laboratory Results Past 24 Hours Test 06/23/17 01:30 06/23/17 08:20 06/23/17 08:30 06/23/17 12:03 Range/Units White Blood Count 9.47 4.8-10.8 K/uL Red Blood Count 5.41 4.7-6.1 M/uL Hemoglobin 15.6 14.0-18.0 g/dL Hematocrit 46.6 42-52 % Mean Corpuscular Volume 86.1 80-100 fL Mean Corpuscular Hemoglobin 28.8 25-34 pg Mean Corpuscular Hemoglobin Concent 33.5 32-36 g/dl Platelet Count 211 130-400 K/uL Mean Platelet Volume 9.8 7.4-10.4 fL Neutrophils (%) (Auto) 61.4 % Lymphocytes (%) (Auto) 24.5 % Monocytes (%) (Auto) 11.3 % Eosinophils (%) (Auto) 2.0 % Basophils (%) (Auto) 0.4 % Neutrophils # (Auto) 5.81 1.4-6.5 K/uL Lymphocytes # (Auto) 2.32 1.2-3.4 K/uL Monocytes # (Auto) 1.07 0.11-0.59 K/uL Eosinophils # (Auto) 0.19 0-0.5 K/uL Basophils # (Auto) 0.04 0-0.2 K/uL RDW Standard Deviation 41.0 36.4-46.3 fL RDW Coefficient of Variation 13.1 11.5-14.5 % Immature Granulocyte % (Auto) 0.4 % Immature Granulocyte # (Auto) 0.04 0.00-0.02 K/uL Red Blood Cell Morphology Unremarkable Sodium Level 139 136-145 mmol/L Potassium Level 4.0 3.5-5.1 mmol/L Chloride Level 107 98-107 mmol/L Carbon Dioxide Level 24 21-32 mmol/L Anion Gap 8.0 3-11 mmol/L Blood Urea Nitrogen 18 7-18 mg/dl Creatinine 1.52 0.60-1.40 mg/dl Estimated GFR () 54.9 Estimated GFR (Non- 47.4 BUN/Creatinine Ratio 12.1 10-20 Random Glucose 249 70-99 mg/dl Estimated Average Glucose 258 mg/dl Hemoglobin A1c 10.6 4.5-5.6 % Calcium Level 8.7 8.5-10.1 mg/dl Bedside Glucose 223 150 70-99 mg/dl Urine Color DK YELLOW Urine Appearance CLEAR CLEAR Urine pH 5.0 4.5-7.5 Urine Specific [place] 1.037 1.000-1.030 Urine Protein TRACE NEG Urine Glucose (UA) 3+ NEG Urine Ketones NEG NEG Urine Occult Blood 3+ NEG Urine Nitrite NEG NEG Urine Bilirubin NEG NEG Urine Urobilinogen NEG NEG Urine Leukocyte Esterase NEG NEG Urine WBC (Auto) 1-5 0-5 /hpf Urine RBC (Auto) >30 0-4 /hpf Urine Hyaline Casts (Auto) 5-10 0-5 /lpf Urine Epithelial Cells (Auto) 10-20 0-5 /lpf Urine Bacteria (Auto) NEG NEG Labs were reviewed and are within normal limits unless listed below. Labs are available in the chart and at [facility] Problem List Medical Problems: (1) Intractable pain Status: Acute (2) Renal colic on left side Status: Acute (3) Renal colic on left side Status: Acute Past History congestive heart failure, coronary artery disease, diabetes, heart disease, high cholesterol, hypertension, kidney stones, lung disease, other (sleep apnea uses cpap) Pt had a problem w anesthesia?: No Past Surgical History: appendectomy, other (hernia repair, eswl, ureteral stent ) Family History sister bowel resection for diverticulitis, sister skin cancer on head, brother CAD Social History Hx Tobacco Use In Past Year?: Yes Smoking: quit less than 1 year, other (smoked until 30 yrs ago, chewed until february 2017) Alcohol: other (about a 6 pack beer per week) Marital status: Housing status: lives with family Occupation status: disabled Allergies Coded Allergies: No Known Allergies (Unverified , 06/23/17) Medications Home Medications: Home Meds and Scripts Medications Dose Route/Sig Max Daily Dose Days Date Category Dose Instructions Roxicodone Ir (Oxycodone HCl) 5 Mg Tab 1-2 Tab PO Q4H PRN 06/22/17 Rx Lasix (Furosemide) 40 Mg Tab 40 Mg PO 3XWK 06/22/17 Reported TAKE DAILY ON MON/MON/MON Potassium Chloride Er (Potassium Chloride) 10 Meq Tab 10 Meq PO 06/22/17 Reported Humalog Mix 75/25 (Insulin Human Lispro) 100 Units/ Inj 44 Units SC AMPM 06/22/17 Reported Vitamin D (Cholecalciferol) 5,000 Unit Tab 5,000 Unit PO DAILY 06/22/17 Reported Avastin (Bevacizumab) 100 Mg/4 Ml Inj 1 Dose INJ Q 5-6 WEEKS 06/22/17 Reported Aspirin Ec (Aspirin) 81 Mg Tab 81 Mg PO QPM 06/22/17 Reported Toprol-Xl (Metoprolol Succinate) 100 Mg Tabcr 100 Mg PO BID 06/22/17 Reported Ranexa (Ranolazine) 500 Mg Tab 500 Mg PO AMPM 90 06/22/17 Reported Plavix (Clopidogrel Bisulfate) 75 Mg Tab 75 Mg PO QPM 06/22/17 Reported Lisinopril 2.5 Mg Tab 2.5 Mg PO QAM 06/22/17 Reported Glucophage (Metformin Hcl) 500 Mg Tab 500 Mg PO QPM 06/22/17 Reported Crestor (Rosuvastatin Calcium) 10 Mg Tab 10 Mg PO QPM 06/22/17 Reported Nitrostat (Nitroglycerin) 0.4 Mg Tab 0.4 Mg UT UD 06/22/17 Reported Inpatient Medications: Current Inpatient Medications Medications (Trade) Dose Ordered Sig/Chong Route Start Time Stop Time Status Last Admin Dose Admin Acetaminophen (Tylenol Tab) 650 mg Q4H PRN PO 06/23/17 04:45 07/23/17 04:44 Al Hydrox/Mg Hydrox/Simethicone (Maalox Max Susp) 15 ml Q4H PRN PO 06/23/17 04:45 07/23/17 04:44 Magnesium Hydroxide (Milk Of Magnesia Susp) 30 ml Q6H PRN PO 06/23/17 04:45 07/23/17 04:44 Ondansetron HCl (Zofran Inj) 4 mg Q6H PRN IV 06/23/17 04:45 07/23/17 04:44 Aspirin (Ecotrin Tab) 81 mg QPM PO 06/23/17 21:00 07/23/17 20:59 Clopidogrel Bisulfate (plAVix TAB) 75 mg QPM PO 06/23/17 21:00 07/23/17 20:59 Insulin Human Lispro (humaLOG MIX 75/ 25) 44 units BIDM SC 06/23/17 08:00 07/23/17 07:59 06/23/17 08:51 44 UNITS Metoprolol Succinate (Toprol Xl Tab) 100 mg BID PO 06/23/17 09:00 07/23/17 08:59 06/23/17 08:38 100 MG Nitroglycerin (Nitrostat Tab) 0.4 mg UD UT 06/23/17 04:45 07/23/17 04:44 Ondansetron HCl (Zofran Odt) 4 mg Q6H PRN SL 06/23/17 04:45 07/23/17 04:44 Oxycodone HCl (Roxicodone Immediate Rel Tab) 5 mg Q4H PRN PO 06/23/17 04:45 07/07/17 04:44 Rosuvastatin Calcium (Crestor Tab) 10 mg QPM PO 06/23/17 21:00 07/23/17 20:59 Cholecalciferol (Vitamin D Tab) 5,000 inter.unit DAILY PO 06/23/17 09:00 07/23/17 08:59 06/23/17 08:38 5,000 INTER.UNIT Ranolazine (Ranexa ER Tab) 500 mg BID PO 06/23/17 09:00 07/23/17 08:59 06/23/17 08:37 500 MG Sodium Chloride 1,000 ml @ 100 mls/hr Q10H IV 06/23/17 06:15 07/23/17 06:14 06/23/17 15:50 100 MLS/HR Morphine Sulfate (MoRPHine SULFATE INJ) 3 mg Q3HWA PRN IV 06/23/17 04:45 07/07/17 04:44 Tamsulosin HCl (Flomax Cap) 0.4 mg QAM PO 06/23/17 09:00 07/23/17 08:59 06/23/17 08:37 0.4 MG Insulin Aspart (novoLOG ASPART) SLIDING SCALE G... ACHS SC 06/23/17 07:00 07/23/17 06:59 06/23/17 13:54 1 UNITS Glucose (Glucose 40% Gel) 15-30 GRAMS 15 GRAMS... UD PRN PO 06/23/17 05:30 07/23/17 05:29 Glucose (Glucose Chew Tab) 4-8 Tablets 4 Tabl... UD PRN PO 06/23/17 05:30 07/23/17 05:29 Dextrose (Dextrose 50% 50ML Syringe) 25-50ML OF 50% DW IV FOR... UD PRN IV 06/23/17 05:30 07/23/17 05:29 Glucagon (Glucagon Inj) 1 mg UD PRN SQ 06/23/17 05:30 07/23/17 05:29 Miscellaneous (Iv Fluids Completed) 1 ea PRN PRN N/A 06/23/17 05:45 06/23/18 05:44 Potassium Citrate (Urocit-K Tab) 10 meq QID PO 06/23/17 17:00 07/23/17 16:59 Review of Systems Review of Systems Constitutional: + chills, No fever Neurological: + dizzy Endocrine: + too cold, + tired/sluggish Gastrointestinal: + abdominal pain, + indigestion, + nausea, + constipation, No diarrhea Cardiovascular: No chest pain, No palpitations, No swelling ankles/feet Respiratory: + shortness of breath (with any exertion), No chronic cough Musculoskeletal: + joint pain Male : + kidney stones, + nocturia more than once/night, No frequent urination, No painful urination, No blood in urine, No infections Physical Exam Vital Signs: Vital Signs Past 12 Hours Date Time Temp Pulse Resp B/P (MAP) Pulse Ox O2 Delivery O2 Flow Rate FiO2 06/23/17 16:00 Room Air 06/23/17 15:00 37.0 67 18 138/76 (96) 95 Room Air 06/23/17 11:22 36.6 67 18 125/71 (89) 94 Room Air 06/23/17 08:24 36.6 64 19 117/69 (85) 94 Room Air 06/23/17 08:00 36.6 69 19 117/69 (85) 94 Room Air 06/23/17 07:30 Room Air 06/23/17 06:45 99/58 (72) 06/23/17 06:10 99/56 (70) 06/23/17 05:30 36.8 75 20 162/69 93 Room Air 06/23/17 05:05 76 18 131/75 98 Room Air Physical Exam: General Appearance: WD/WN, no apparent distress, + obese Eyes: bilateral eyes normal inspection ENT: hearing grossly normal Neck: supple, no adenopathy, no JVD, trachea midline Respiratory/Chest: no respiratory distress, no accessory muscle use Gastrointestinal: Abdomen: normal abdomen Bladder: normal bladder Renal: normal renal Hernia: absent hernia Liver: normal liver Extremities: non-tender, normal inspection, no calf tenderness, normal capillary refill, + pedal edema Neurologic/Psychiatric: alert, normal mood/affect, oriented x 3 Skin: normal color, warm/dry, no rash Lymphatic: no adenopathy Assessment & Plan Assessment & Plan small left ureteral stone with hydronephrosis Not in pain now I looked at ct and u/a and suspect this is a uric acid stone I suggest we try to alkalinize the urine with urocit K qid. CHeck K+ and urine pH tomorrow he is motivated to avoid surgery. may have a general diet tomorrow. I briefly reviewed stone diet. He had been eating a lot of nuts for heart health.
[2017-06-23] MEDS: POTASSIUM CITRATE 10 MEQ TAB PO SCH ×2 (17:45→21:00)
[2017-06-23 18:50] LABS: URINE APPEARANCE CLEAR (CLEAR); URINE BILIRUBIN NEG (NEG); URINE COLOR YELLOW; URINE NITRITE NEG (NEG); UROBILINOGEN NEG (NEG)
[2017-06-23 19:00] LABS: MANUAL MICROSCOPIC REQUIRED? NO; REVIEW REQ? NO
[2017-06-23] MEDS ORDERED: CLOPIDOGREL BISULFATE 75 MG TAB PO SCH (21:00)
[2017-06-23] MEDS ORDERED: ROSUVASTATIN CALCIUM 10 MG TAB PO SCH (21:00)
[2017-06-23] MEDS ORDERED: ASPIRIN 81 MG ECTAB PO SCH (21:00)
[2017-06-24] MEDS: SODIUM CHLORIDE 0.9% 1000ML 1,000 ML IV SCH (02:07)
[2017-06-24 07:29] LABS: BASO % 0.5 %; BASO ABS # 0.03 K/uL (0-0.2); COMPLETE YES; HEMATOCRIT 42.2 % (42-52); IG% 0.4 %; LYMPH % 39.4 %; LYMPH ABS # 2.24 K/uL (1.2-3.4); MEAN CELL VOLUME 87.2 fL (80-100); MEAN CORPUSCULAR HEMOGLOBIN 29.5 pg (25-34); MEAN CORPUSCULAR HGB CONC 33.9 g/dl (32-36); MEAN PLATELET VOLUME 9.7 fL (7.4-10.4); MONO % 11.6 %; NEUT % 45.1 %; PLATELET COUNT 183 K/uL (130-400); RED BLOOD COUNT 4.84 M/uL (4.7-6.1); WHITE BLOOD COUNT 5.68 K/uL (4.8-10.8)
[2017-06-24 07:55] LABS: BUN/CREATININE RATIO 12.2 (10-20); CALCIUM 8.9 mg/dl (8.5-10.1); CREATININE 1.31 mg/dl (0.60-1.40); MAGNESIUM 2.3 mg/dl (1.8-2.4); POTASSIUM 4.2 mmol/L (3.5-5.1)
[2017-06-24 08:10] VITALS: BP 148/74; PULSE 64; TEMP 36.6; O2SAT 96
[2017-06-24] MEDS: INSULIN LISPRO 75% / 25% SC SCH (08:52)
[2017-06-24] MEDS: INSULIN ASPART 100 UNITS/ML 3 ML PEN SC SCH (08:52)
[2017-06-24] MEDS: RANOLAZINE 500 MG ER TAB PO SCH (09:02)
[2017-06-24] MEDS: CHOLECALCIFEROL 1000 INTER.UNIT TAB PO SCH (09:02)
[2017-06-24] MEDS: POTASSIUM CITRATE 10 MEQ TAB PO SCH (09:03)
[2017-06-24] MEDS: TAMSULOSIN HCL 0.4 MG CAP PO SCH (09:03)
[2017-06-24] MEDS: METOPROLOL SUCC 50MG EXT REL TAB PO SCH (09:03)
--- NOTE | 2017-06-24 11:49 | Progress Note ---
Subjective Date of Service: Jun 24, 2017. Subjective Pt evaluation today including: conversation w/ patient, conversation w/ family , physical exam, lab review Voiding: no voiding problems Patient passed his stone overnight. It is 3mm oblong and mostly yellow with a black speck. He feels well. He prefers NOT to take another pill (the urocitK) as he is on so many already. He is willing to try to take in citrate in the form of lemon juice. No fever. no chills His mentions he has been drinking vinegar to help weight loss. Problem List Medical Problems: (1) Intractable pain Status: Acute (2) Renal colic on left side Status: Acute (3) Renal colic on left side Status: Acute Review of Systems Constitutional: No fever, No chills Respiratory: + shortness of breath Cardiac: No chest pain Male : + urinary frequency, + nocturia more than once/night, No hematuria Endo: No fatigue Objective Vital Signs Date Time Temp Pulse Resp B/P (MAP) Pulse Ox O2 Delivery O2 Flow Rate FiO2 06/24/17 08:10 36.6 64 16 148/74 (98) 96 Room Air 06/24/17 07:45 Room Air 06/23/17 23:50 CPAP 06/23/17 22:50 36.6 69 18 135/75 (95) 93 Room Air 06/23/17 20:13 Room Air 06/23/17 16:00 Room Air 06/23/17 15:00 37.0 67 18 138/76 (96) 95 Room Air Physical Exam General Appearance: WD/WN, no apparent distress, + obese Neurologic/Psychiatric: alert, normal mood/affect, oriented x 3 Laboratory Results Last 24 Hours Test 06/23/17 12:03 06/23/17 17:03 06/23/17 18:15 06/23/17 20:19 Bedside Glucose 150 mg/dl 187 mg/dl 129 mg/dl Urine Color YELLOW Urine Appearance CLEAR Urine pH 5.0 Urine Specific [place] 1.020 Urine Protein NEG Urine Glucose (UA) 2+ Urine Ketones NEG Urine Occult Blood 1+ Urine Nitrite NEG Urine Bilirubin NEG Urine Urobilinogen NEG Urine Leukocyte Esterase NEG Urine WBC (Auto) 1-5 /hpf Urine RBC (Auto) 0-4 /hpf Urine Hyaline Casts (Auto) 1-5 /lpf Urine Epithelial Cells (Auto) 5-10 /lpf Urine Bacteria (Auto) NEG Test 06/24/17 06:49 06/24/17 08:12 White Blood Count 5.68 K/uL Red Blood Count 4.84 M/uL Hemoglobin 14.3 g/dL Hematocrit 42.2 % Mean Corpuscular Volume 87.2 fL Mean Corpuscular Hemoglobin 29.5 pg Mean Corpuscular Hemoglobin Concent 33.9 g/dl Platelet Count 183 K/uL Mean Platelet Volume 9.7 fL Neutrophils (%) (Auto) 45.1 % Lymphocytes (%) (Auto) 39.4 % Monocytes (%) (Auto) 11.6 % Eosinophils (%) (Auto) 3.0 % Basophils (%) (Auto) 0.5 % Neutrophils # (Auto) 2.56 K/uL Lymphocytes # (Auto) 2.24 K/uL Monocytes # (Auto) 0.66 K/uL Eosinophils # (Auto) 0.17 K/uL Basophils # (Auto) 0.03 K/uL RDW Standard Deviation 42.2 fL RDW Coefficient of Variation 13.2 % Immature Granulocyte % (Auto) 0.4 % Immature Granulocyte # (Auto) 0.02 K/uL Sodium Level 141 mmol/L Potassium Level 4.2 mmol/L Chloride Level 108 mmol/L Carbon Dioxide Level 29 mmol/L Anion Gap 4.0 mmol/L Blood Urea Nitrogen 16 mg/dl Creatinine 1.31 mg/dl Est Creatinine Clear Calc Drug Dose 75.0 ml/min Estimated GFR () 65.8 Estimated GFR (Non- 56.7 BUN/Creatinine Ratio 12.2 Random Glucose 182 mg/dl Calcium Level 8.9 mg/dl Magnesium Level 2.3 mg/dl Bedside Glucose 178 mg/dl Assessment and Plan spontaneously passed left mid ureteral stone he will try to stay well hydrated and take some splashes of lemon juice in his water he will [facility] to [facility] g[facility] diet. see me prn
--- NOTE | 2017-06-24 12:00 | Progress Note ---
Internal Med Progress Note Date of Service: Jun 24, 2017. Provider Documentation: SUBJECTIVE: Seen and examined at bedside Feels well Denies abd pain Spontaneously passed the stone Denies chest pain, SOB, dizziness Family at bedside Offers no complaints OBJECTIVE: Vital Signs-as noted below Physical Exam: General Appearance:Obese, no apparent distress Head: normocephalic, Atraumatic Eyes: normal inspection, EOMI, PERRL Neck: supple, Trachea midline Respiratory/Chest: Decreased breath sounds, CTA Cardiovascular: S1, S2, No murmur Abdomen/GI:Soft, Non tender, Bowel sounds present Extremities/Musculoskelatal:normal inspection, Trace edema Neurologic/Psych:AAOX3, grossly no focal neurological deficits Skin: normal color, warm Lab data as noted below. ASSESSMENT & PLAN: Patient is a 66 yr male who presents with left renal colic. Left renal colic: CT ABD on 06/22: showed partially obstructing calculus mid left ureter and mild left hydroureteronephrosis. Renal USD:Persistent mild hydronephrosis of L kidney, 4 mm focus of the inferior pole left kidney suggests calculus Pain control IV fluids Appreciate urology Input Continue Flomax, antiemetics UA: microhematuria, No signs of infections Trial of potassium citrate as per Urology as stone likely Uric acid Spontaneously passed he stone Acute renal failure: Secondary to above Monitor renal function IV fluids Resolved H/O CAD S/P stents Continue aspirin, Plavix, beta-uglshan, statin, Ranexa Asymptomatic DM II: Uncontrolled A1C:10.6 Hold metformin Continue ISS along with his home Insulin regimen Hypertension: Continue Toprol-XL Hold lisinopril, Lasix Hyperlipidemia: Continue statin DVT Px: SCDs Disposition: Plan to discharge home today Follow up with your Primary Care physician in 1 week as advised Follow up with your Urologist as needed Seek immediate medical attention if your symptoms reoccur or worsen Vital Signs: Date Time Temp Pulse Resp B/P (MAP) Pulse Ox O2 Delivery O2 Flow Rate FiO2 06/24/17 08:10 36.6 64 16 148/74 (98) 96 Room Air 06/24/17 07:45 Room Air 06/23/17 23:50 CPAP 06/23/17 22:50 36.6 69 18 135/75 (95) 93 Room Air 06/23/17 20:13 Room Air 06/23/17 16:00 Room Air 06/23/17 15:00 37.0 67 18 138/76 (96) 95 Room Air Lab Results: Results Past 24 Hours Test 06/23/17 12:03 06/23/17 17:03 06/23/17 18:15 06/23/17 20:19 Range/Units Bedside Glucose 150 187 129 70-99 mg/dl Urine Color YELLOW Urine Appearance CLEAR CLEAR Urine pH 5.0 4.5-7.5 Urine Specific [place] 1.020 1.000-1.030 Urine Protein NEG NEG Urine Glucose (UA) 2+ NEG Urine Ketones NEG NEG Urine Occult Blood 1+ NEG Urine Nitrite NEG NEG Urine Bilirubin NEG NEG Urine Urobilinogen NEG NEG Urine Leukocyte Esterase NEG NEG Urine WBC (Auto) 1-5 0-5 /hpf Urine RBC (Auto) 0-4 0-4 /hpf Urine Hyaline Casts (Auto) 1-5 0-5 /lpf Urine Epithelial Cells (Auto) 5-10 0-5 /lpf Urine Bacteria (Auto) NEG NEG Test 06/24/17 06:49 06/24/17 08:12 06/24/17 11:52 Range/Units White Blood Count 5.68 4.8-10.8 K/uL Red Blood Count 4.84 4.7-6.1 M/uL Hemoglobin 14.3 14.0-18.0 g/dL Hematocrit 42.2 42-52 % Mean Corpuscular Volume 87.2 80-100 fL Mean Corpuscular Hemoglobin 29.5 25-34 pg Mean Corpuscular Hemoglobin Concent 33.9 32-36 g/dl Platelet Count 183 130-400 K/uL Mean Platelet Volume 9.7 7.4-10.4 fL Neutrophils (%) (Auto) 45.1 % Lymphocytes (%) (Auto) 39.4 % Monocytes (%) (Auto) 11.6 % Eosinophils (%) (Auto) 3.0 % Basophils (%) (Auto) 0.5 % Neutrophils # (Auto) 2.56 1.4-6.5 K/uL Lymphocytes # (Auto) 2.24 1.2-3.4 K/uL Monocytes # (Auto) 0.66 0.11-0.59 K/uL Eosinophils # (Auto) 0.17 0-0.5 K/uL Basophils # (Auto) 0.03 0-0.2 K/uL RDW Standard Deviation 42.2 36.4-46.3 fL RDW Coefficient of Variation 13.2 11.5-14.5 % Immature Granulocyte % (Auto) 0.4 % Immature Granulocyte # (Auto) 0.02 0.00-0.02 K/uL Sodium Level 141 136-145 mmol/L Potassium Level 4.2 3.5-5.1 mmol/L Chloride Level 108 98-107 mmol/L Carbon Dioxide Level 29 21-32 mmol/L Anion Gap 4.0 3-11 mmol/L Blood Urea Nitrogen 16 7-18 mg/dl Creatinine 1.31 0.60-1.40 mg/dl Est Creatinine Clear Calc Drug Dose 75.0 ml/min Estimated GFR () 65.8 Estimated GFR (Non- 56.7 BUN/Creatinine Ratio 12.2 10-20 Random Glucose 182 70-99 mg/dl Calcium Level 8.9 8.5-10.1 mg/dl Magnesium Level 2.3 1.8-2.4 mg/dl Bedside Glucose 178 70-99 mg/dl
--- NOTE | 2017-06-24 12:02 | Discharge Summary ---
Discharge Summary Date of Service Jun 24, 2017. Discharge Summary Admission Date: Jun 23, 2017 at 04:45 Discharge Date: Jun 24, 2017 Discharge Disposition: Home Principal Diagnosis: Renal Colic, QUIN Procedures: Renal USD: 1. Persistent mild hydronephrosis of the left kidney with echogenic material within the region of the left ureterovesicular junction suspicious for progression of left ureteral calculus. There is also some layering debris within the collapsed urinary bladder. 2. Echogenic 4 mm focus of the inferior pole left kidney suggests calculus, however no correlate seen on comparison CT. This may reflect echogenic renal sinus fat. 3. Unremarkable sonographic appearance of the right kidney Consultations: Urology Pending Studies/Follow-Up: Follow up with your Primary Care physician in 1 week as advised Follow up with your Urologist as needed Seek immediate medical attention if your symptoms reoccur or worsen Medication Reconciliation Continued Medications: Aspirin (Aspirin Ec) 81 Mg Tab 81 MG PO QPM Bevacizumab (Avastin) 100 Mg/4 Ml Inj 1 DOSE INJ Q 5-6 WEEKS Cholecalciferol (Vitamin D) 5,000 Unit Tab 5000 UNIT PO DAILY Clopidogrel (Plavix) 75 Mg Tab 75 MG PO QPM, TAB Furosemide (Lasix) 40 Mg Tab 40 MG PO 3XWK TAKE DAILY ON MON/MON/MON Insulin Lispro 75/25 (Humalog Mix 75/25) 100 Units/ Inj 44 UNITS SC AMPM, VIAL Lisinopril (Lisinopril) 2.5 Mg Tab 2.5 MG PO QAM Metformin Hcl (Glucophage) 500 Mg Tab 500 MG PO QPM, TAB Metoprolol Succ (Toprol Xl) (Toprol-Xl ) 100 Mg Tabcr 100 MG PO BID, TAB Nitroglycerin (Nitrostat) 0.4 Mg Tab 0.4 MG UT UD, BTL Oxycodone Immediate Rel Tab (Roxicodone Ir) 5 Mg Tab 1-2 TAB PO Q4H PRN for Severe Pain, #24 TAB Potassium Chloride (Potassium Chloride Er) 10 Meq Tab 10 MEQ PO, 3 Refills Ranolazine (Ranexa) 500 Mg Tab 500 MG PO AMPM for 90 Days, TAB 3 Refills Rosuvastatin Calcium (Crestor) 10 Mg Tab 10 MG PO QPM, TAB Admission Information HPI (per Admitting provider): CHIEF COMPLAINT: Left flank pain. HISTORY OF PRESENT ILLNESS: This is a 66-year-old male with past medical history significant for CAD status post stent, diabetes, hypertension, hyperlipidemia,REED and a history of kidney stones, presents with left flank pain. The patient was in the ER yesterday and the CAT scan showed partially obstructing 3mm mid left ureteral stone and was discharged home to follow up as an outpatient with urology. But after the patient went home, late in the afternoon, started having severe left flank pain, associated with some nausea and he was brought back to the hospital. Currently, the pain is controlled with a pain medication, resting comfortably, hemodynamically stable. Denies any chest pain, no shortness of breath, no cough, no fever, no chills, no headaches, no blurred vision, no dizziness, no sore throat, no abdominal pain. The patient is somewhat constipated. No blood in the urine, no blood in the stools. Appetite is okay. He has chronic shortness of breath from his heart disease. Physical Exam (per Admitting): PHYSICAL EXAMINATION: GENERAL: The patient is obese, not in distress. VITAL SIGNS: Temperature 36.6, pulse 69, respiratory rate 18, blood pressure 122/58, oxygen 95% on room air. HEENT: No pallor, no icterus. Pupils equal, round, and reactive to light. NECK: No JVD, no neck masses, no carotid bruits. CARDIOVASCULAR SYSTEM: S1, S2 heard, regular rate and rhythm, no murmur, no gallop. RESPIRATORY SYSTEM: Clear to auscultation bilaterally. No wheezing, no crackles. ABDOMEN: Soft, bowel sounds present, mild left CVA tenderness present. No guarding, no rigidity, no distention. CENTRAL NERVOUS SYSTEM: Cranial nerves II-XII grossly intact. Nonfocal. EXTREMITIES: No edema, no erythema. Hospital Course Patient is a 66 yr male who presents with left renal colic. Left renal colic: CT ABD on 06/22: showed partially obstructing calculus mid left ureter and mild left hydroureteronephrosis. Renal USD:Persistent mild hydronephrosis of L kidney, 4 mm focus of the inferior pole left kidney suggests calculus Pain control IV fluids Appreciate urology Input Continue Flomax, antiemetics UA: microhematuria, No signs of infections Trial of potassium citrate as per Urology as stone likely Uric acid Spontaneously passed he stone Acute renal failure: Secondary to above Monitor renal function IV fluids Resolved H/O CAD S/P stents Continue aspirin, Plavix, beta-gulshan, statin, Ranexa Asymptomatic DM II: Uncontrolled A1C:10.6 Hold metformin Continue ISS along with his home Insulin regimen Hypertension: Continue Toprol-XL Hold lisinopril, Lasix Hyperlipidemia: Continue statin DVT Px: SCDs Disposition: Plan to discharge home today Follow up with your Primary Care physician in 1 week as advised Follow up with your Urologist as needed Seek immediate medical attention if your symptoms reoccur or worsen Total time spent on discharge = This includes examination of the patient, discharge planning, medication reconciliation, and communication with other providers. Discharge Instructions Discharge Instructions Date of Service Jun 24, 2017. Admission Reason for Admission: Renal Colic On Left Side Discharge Discharge Diagnosis / Problem: Renal Colic, QUIN Discharge Goals Goal(s): Decrease discomfort, Improve function Activity Recommendations Activity Limitations: resume your previous activity Exercise/Sports Limitations: as tolerated . Instructions / Follow-Up Instructions / Follow-Up Follow up with your Primary Care physician in 1 week as advised Follow up with your Urologist as needed Seek immediate medical attention if your symptoms reoccur or worsen Current Hospital Diet Patient's current hospital diet: Diabetes Type 2 Diet Discharge Diet Recommended Diet: Diabetes Type 2 Diet Pending Studies Studies pending at discharge: no Laboratory Results Hemoglobin A1c Test 06/23/17 01:30 Range/Units Estimated Average Glucose 258 mg/dl Hemoglobin A1c 10.6 H 4.5-5.6 % Medical Emergencies . Who to Call and When: Medical Emergencies: If at any time you feel your situation is an emergency, please call 911 immediately. . Non-Emergent Contact Non-Emergency issues call your: Primary Care Provider, Urologist Call Non-Emergent contact if: you have a fever, your pain is not controlled, your pain is worsening, your pain is unusual for you, your pain is concerning you, you have any medication questions Seek immediate medical attention if your symptoms reoccur or worsen . . "Provider Documentation" section prepared by Gideon Malik. . VTE Core Measure Inpt VTE Proph given/why not?: SCD's
[2017-06-24 12:04] VITALS: BP 148/74; PULSE 64; TEMP 36.6; O2SAT 96
== END 2017-06-24 12:40 | disposition home or self-care (01) ==
LOC: C.EDB 01:12 → C.MSW 04:45 → ENRESERV 04:57
PROVIDERS: ADMIT Internal Medicine; ATTEND Internal Medicine
DX: N23 Unspecified renal colic (principal); N17.9 Acute kidney failure, unspecified; I25.10 Atherosclerotic heart disease of native coronary artery without angina pectoris; I71.9 Aortic aneurysm of unspecified site, without rupture; I10 Essential (primary) hypertension; E78.5 Hyperlipidemia, unspecified; E11.9 Type 2 diabetes mellitus without complications; G47.33 Obstructive sleep apnea (adult) (pediatric); Z87.891 Personal history of nicotine dependence; Z79.4 Long term (current) use of insulin; Z79.82 Long term (current) use of aspirin; Z79.899 Other long term (current) drug therapy; Z95.5 Presence of coronary angioplasty implant and graft; Z87.442 Personal history of urinary calculi

== ENCOUNTER 2017-07-22 10:56 | Emergency (ER) | payer OTHER ==
[~2017-07-22] VITALS: Ht 180.3 cm; Wt 122.7 kg
[~2017-07-22 10:56] MED LIST changes: -ONDA4TAB10 SL
[2017-07-22 10:58] VITALS: TEMP 36.6; Ht 180.3 cm; Wt 122.7 kg
[2017-07-22] MEDS ORDERED: ALBUT/IPRATROP 3MG/0.5MG NEB 3 ML VIAL INH STA (11:32)
[2017-07-22 12:29] LABS: BASO % 1.2 %; COMPLETE YES; EOS % 3.2 %; HEMATOCRIT 44.9 % (42-52); IG% 0.4 %; LYMPH % 25.3 %; LYMPH ABS # 2.16 K/uL (1.2-3.4); MEAN CELL VOLUME 86.3 fL (80-100); MEAN CORPUSCULAR HEMOGLOBIN 29.6 pg (25-34); MEAN CORPUSCULAR HGB CONC 34.3 g/dl (32-36); MEAN PLATELET VOLUME 9.8 fL (7.4-10.4); MONO % 10.3 %; NEUT % 59.6 %; PLATELET COUNT 188 K/uL (130-400); WHITE BLOOD COUNT 8.53 K/uL (4.8-10.8)
[2017-07-22 12:37] LABS: PARTIAL THROMBOPLASTIN RATIO 1.1; PROTHROMBIN TIME (PATIENT) 10.6 SECONDS (9.0-12.0)
[2017-07-22 12:41] LABS: ALB/GLOB RATIO 0.7 (0.9-2); BUN/CREATININE RATIO 14.8 (10-20); CALCIUM 9.6 mg/dl (8.5-10.1); CREATININE 1.65 mg/dl (0.60-1.40); POTASSIUM 4.3 mmol/L (3.5-5.1)
[2017-07-22 12:53] LABS: BETA-HYDROXYBUTYRATE 1.05 mg/dL (0.2-2.81)
[2017-07-22 13:11] LABS: CKMB/CK RATIO 1.1 (0-3.0)
--- NOTE | 2017-07-22 13:28 | DIAGNOSTIC IMAGING REPORT ---
CHEST 2 VIEWS ROUTINE CLINICAL HISTORY: Cough and wheezing. COMPARISON STUDY: No previous studies for comparison. FINDINGS: A 2.5 cm round calcified structure overlying the left upper quadrant is likely within the spleen. No pneumothorax or pleural effusion is present. There is no evidence of pulmonary edema. Cardiac size is at the upper limits of normal. IMPRESSION: No acute cardiopulmonary findings. Electronically signed by: Earl Mckeon M.D. 07/22/2017 1:27 PM Dictated Date/Time: 07/22/2017 1:25 PM
--- NOTE | 2017-07-22 14:04 | EMERGENCY ROOM VISIT NOTE ---
ED Visit Note First contact with patient: 11:09 The patient was seen and examined with Tabitha Williamson PA-C. I agree with the history, physical and findings. Please see the note for disposition and details.
--- NOTE | 2017-07-22 14:08 | EMERGENCY ROOM VISIT NOTE ---
History First contact with patient: 11:09 Chief Complaint: RESPIRATORY PROBLEMS Stated Complaint: WHEEZING, COUGH Nursing Triage Summary: patient states recently started a cpap machine at home. not sure if it is putting to much moisture in my lungs or not. dry cough for the past couple weeks. History of Present Illness Patient is a 66-year-old white male with past medical history significant for diabetes, hypertension, dyslipidemia, sleep apnea, coronary artery disease status post cardiac catheterization with stent who presents the emergency department for evaluation of cough and wheezing. He reports that he has had a dry, nagging, nonproductive cough for "months." It was not particularly problematic and did not interfere with his ADLs. He mentioned it to his doctor , but no workup was ever pursued. He states that he started CPAP for sleep apnea on May 30. He has been running on the most humid setting. His reports that they have been cleaning and maintaining the machine properly. In the last month, the patient has noted that he has been wheezing intermittently, and the cough has become worse. He notes that he is a little bit more short of breath with exertion, and he finds that he is working harder to breathe and some patients. Cough is not productive. He does not have any sore throat or other upper respiratory symptoms. He denies any chest pain or palpitations. He denies any calf or leg pain or swelling, no fluid retention or edema. He reports that his weight has been stable. There've been no recent changes in his medications. His blood sugars are poorly controlled, but patient states that this has been a problem for him for some time. He has a very remote history of smoking cigarettes when he was a teenager, but did use chewing tobacco until just recently. 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 This was also some time ago. Review of Systems Review of systems as per HPI. All other systems reviewed were negative. 10 systems reviewed. Past Medical/Surgical History Medical Problems: (1) CAD (coronary artery disease) (2) Calculus Of Kidney (3) Essential (Primary) Hypertension (4) Hyperlipidemia, Unspecified (5) Intractable pain (6) Obstructive Sleep Apnea (Adult) (Pediatric) (7) Renal colic on left side (8) Renal colic on left side (9) Type 2 Diabetes Mellitus Without Complications Surgical Problems: (1) History of appendectomy (2) History of cardiac catheterization (3) History of hernia repair (4) Presence Of Coronary Angioplasty Implant And Graft Electronic medical records are reviewed and summarized as above/below. See Problem List. Social History Smoking Status: Former Smoker Smokeless Tobacco Use: Yes Alcohol Use: occasionally Marital Status: Housing Status: lives with family Occupation Status: disabled Current/Historical Medications Scheduled Aspirin (Aspirin Ec), 81 MG PO QPM Azithromycin (Zithromax), 250 MG PO DAILY Bevacizumab (Avastin), 1 DOSE INJ Q 5-6 WEEKS Cholecalciferol (Vitamin D), 5,000 UNIT PO DAILY Clopidogrel (Plavix), 75 MG PO QPM Furosemide (Lasix), 40 MG PO 3XWK Insulin Lispro 75/25 (Humalog Mix 75/25), 44 UNITS SC AMPM Lisinopril (Lisinopril), 2.5 MG PO QAM Metformin Hcl (Glucophage), 500 MG PO QPM Metoprolol Succ (Toprol Xl) (Toprol-Xl ), 100 MG PO BID Nitroglycerin (Nitrostat), 0.4 MG UT UD Ranolazine (Ranexa), 500 MG PO AMPM Rosuvastatin Calcium (Crestor), 10 MG PO QPM Scheduled PRN Oxycodone Immediate Rel Tab (Roxicodone Ir), 1-2 TAB PO Q4H PRN for Severe Pain Miscellaneous Medications Potassium Chloride (Potassium Chloride Er), 10 MEQ PO Physical Exam Vital Signs Date Time Temp Pulse Resp B/P (MAP) Pulse Ox O2 Delivery O2 Flow Rate FiO2 07/22/17 15:02 70 18 131/94 95 07/22/17 13:33 79 16 136/81 96 Room Air 07/22/17 12:15 66 16 142/83 97 Room Air 07/22/17 12:05 71 07/22/17 11:00 95 Room Air 07/22/17 10:58 36.6 74 20 152/88 95 Room Air Physical Exam CONSTITUTIONAL: Patient is 66-year-old white male who is awake and alert and sitting upright on the gurney in no acute distress. Vital signs are stable. Oxygen saturation is 95% on room air. No cough appreciated during exam or history and no conversational dyspnea noted. EYES: Pupils equal, round, reactive to light and accommodation. EOMs intact without nystagmus. Sclera are anicteric. ENT: Tympanic membranes intact, with normal landmarks. External canals are clear. Oral and nasopharynx are clear. Mucous membranes are moist, no lesions , tongue and gums appear normal. NECK: No bruits auscultated. Supple without lymphadenopathy. No thyromegaly. No meningeal signs. Full active range of motion without discomfort. CARDIOVASCULAR: Regular rate and rhythm, with normal S1 and S2, no murmur or gallop or rub is heard. No carotid bruits auscultated. No JVD. Peripheral pulses easy to palpable. RESPIRATORY: Breath sounds equal bilaterally with end expiratory wheezes throughout, right slightly worse than left. Full and equal chest expansion without accessory muscle use or retractions. GI: Bowel sounds are present. Abdomen is soft, nontender, nondistended. No organomegaly. No pulsatile masses. No guarding or rebound. MUSCULOSKELETAL: Full range of motion of extremities x 4 with good strength. No cyanosis, edema, joint tenderness or swelling. No deformity. INTEGUMENTARY: No lesions or rash, normal skin turgor. NEUROLOGICAL: Alert, oriented, and cooperative. Cranial nerves, sensation and strength grossly intact. Pupils round, equal, and react to light, EOMs are full. LYMPH: No lymphadenopathy. Medical Decision & Procedures ER Provider Diagnostic Interpretation: CHEST 2 VIEWS ROUTINE CLINICAL HISTORY: Cough and wheezing. COMPARISON STUDY: No previous studies for comparison. FINDINGS: A 2.5 cm round calcified structure overlying the left upper quadrant is likely within the spleen. No pneumothorax or pleural effusion is present. There is no evidence of pulmonary edema. Cardiac size is at the upper limits of normal. IMPRESSION: No acute cardiopulmonary findings. Laboratory Results 07/22/17 12:05 Red Blood Count 5.20, Mean Corpuscular Volume 86.3, Mean Corpuscular Hemoglobin 29.6, Mean Corpuscular Hemoglobin Concent 34.3, Mean Platelet Volume 9.8, Neutrophils (%) (Auto) 59.6, Lymphocytes (%) (Auto) 25.3, Monocytes (%) (Auto) 10.3, Eosinophils (%) (Auto) 3.2, Basophils (%) (Auto) 1.2, Neutrophils # (Auto ) 5.09, Lymphocytes # (Auto) 2.16, Monocytes # (Auto) 0.88, Eosinophils # (Auto ) 0.27, Basophils # (Auto) 0.10 07/22/17 12:05 Test 07/22/17 12:05 White Blood Count 8.53 K/uL (4.8-10.8) Red Blood Count 5.20 M/uL (4.7-6.1) Hemoglobin 15.4 g/dL (14.0-18.0) Hematocrit 44.9 % (42-52) Mean Corpuscular Volume 86.3 fL (80-100) Mean Corpuscular Hemoglobin 29.6 pg (25-34) Mean Corpuscular Hemoglobin Concent 34.3 g/dl (32-36) Platelet Count 188 K/uL (130-400) Mean Platelet Volume 9.8 fL (7.4-10.4) Neutrophils (%) (Auto) 59.6 % Lymphocytes (%) (Auto) 25.3 % Monocytes (%) (Auto) 10.3 % Eosinophils (%) (Auto) 3.2 % Basophils (%) (Auto) 1.2 % Neutrophils # (Auto) 5.09 K/uL (1.4-6.5) Lymphocytes # (Auto) 2.16 K/uL (1.2-3.4) Monocytes # (Auto) 0.88 K/uL (0.11-0.59) Eosinophils # (Auto) 0.27 K/uL (0-0.5) Basophils # (Auto) 0.10 K/uL (0-0.2) RDW Standard Deviation 41.1 fL (36.4-46.3) RDW Coefficient of Variation 13.0 % (11.5-14.5) Immature Granulocyte % (Auto) 0.4 % Immature Granulocyte # (Auto) 0.03 K/uL (0.00-0.02) Prothrombin Time 10.6 SECONDS (9.0-12.0) Prothromb Time International Ratio 1.0 (0.9-1.1) Activated Partial Thromboplast Time 27.6 SECONDS (21.0-31.0) Partial Thromboplastin Ratio 1.1 Anion Gap 7.0 mmol/L (3-11) Est Creatinine Clear Calc Drug Dose 59.5 ml/min Estimated GFR () 49.7 Estimated GFR (Non- 42.9 BUN/Creatinine Ratio 14.8 (10-20) Calcium Level 9.6 mg/dl (8.5-10.1) Total Bilirubin 0.4 mg/dl (0.2-1) Aspartate Amino Transf (AST/SGOT) 13 U/L (15-37) Alanine Aminotransferase (ALT/SGPT) 26 U/L (12-78) Alkaline Phosphatase 85 U/L (45-117) Total Creatine Kinase 62 U/L (39-308) Creatine Kinase MB 0.7 ng/ml (0.5-3.6) Creatine Kinase MB Ratio 1.1 (0-3.0) Troponin I < 0.015 ng/ml (0-0.045) Pro-B-Type Natriuretic Peptide 172 pg/ml (0-900) Total Protein 7.9 gm/dl (6.4-8.2) Albumin 3.3 gm/dl (3.4-5.0) Globulin 4.6 gm/dl (2.5-4.0) Albumin/Globulin Ratio 0.7 (0.9-2) Beta-Hydroxybutyric Acid 1.05 mg/dL (0.2-2.81) Medications Administered Medications (Trade) Dose Ordered Sig/Chong Route Start Time Stop Time Status Last Admin Dose Admin Albuterol/ Ipratropium (Duoneb) 3 ml NOW STAT INH 07/22/17 11:32 07/22/17 11:34 DC 07/22/17 12:13 3 ML Azithromycin (Zithromax Tab) 500 mg NOW ONCE PO 07/22/17 14:15 07/22/17 14:16 DC 07/22/17 15:01 500 MG Albuterol (Ventolin Hfa Inhaler) 2 puffs NOW ONCE INH 07/22/17 14:15 07/22/17 14:16 DC 07/22/17 15:01 2 PUFFS ECG Indication: SOB/dyspnea Rate (beats per minute): 79 Rhythm: sinus rhythm Findings: PAC (with aberrant conduction, new from prior), no acute ischemic change Comparison ECG Date: 01/05/2008 Change: PACs with aberrant conduction is new ED Course The patient was seen and assessed as above. His old records were reviewed. IV lock was initiated and laboratory studies were collected including CBC with differential, coags, cardiac enzymes, BNP and CMP. Chest x-ray was performed. Patient was given a DuoNeb treatment. EKG was obtained and was as noted above. Laboratory studies did not demonstrate any leukocytosis. No left shift. No anemia. Electrolytes are without significant abnormality. Renal functions are slightly elevated at 25 and 1.65 which is increased slightly from the patient's baseline. Cardiac enzymes are negative 1. BNP is not indicative of failure. The patient's glucose on venous draw was noted to the 462. Patient reports that his glucose was 220 this morning, at which point he ate breakfast and took 44 units of his Humalog. Patient admits that his blood sugars have been poorly controlled recently. Urine dip noted 2+ glucose, but otherwise was negative. Chest x-ray was unremarkable. There is no evidence for pneumothorax, pleural effusion or pulmonary edema. The patient was reassessed after his nebulizer treatment. Cough was slightly more noticeable, but wheezing had cleared. All laboratory and diagnostic imaging studies were discussed with the patient, and reviewed with attending physician who also independently evaluated the patient. Patient has had a nagging cough for an extended period of time, but has noted increased wheezing and cough for the last 4 weeks or so. He was also recently started on a C Pap machine. ED workup was largely unrevealing. Differential diagnoses entertained included COPD/asthma exacerbation, CHF, pneumonia, bronchitis, URI, asthmatic bronchitis, allergies, medication side effect, GERD, pneumothorax, cardiomyopathy, among others. The patient was issued an albuterol inhaler with a spacer. He was also placed on a Z-Jose. He was not felt to be a good candidate for any steroids due to his poorly controlled blood sugars. With regard to his hyperglycemia today, the patient was encouraged to monitor his blood sugars more closely and report his readings to discuss with his PCP. He was educated on the worrisome signs or symptoms for which she should return to the emergency department, and should otherwise follow up with his primary care provider next week for further care and evaluation of his symptoms, and to discuss tighter control of his diabetes. Patient expressed understanding of this and was agreeable. He was discharged home in good condition. Vital signs were stable. Medical Decision See emergency Department course. Medication Reconcilliation Current Medication List: was personally reviewed by me Blood Pressure Screening Patient's blood pressure: Normal blood pressure Blood pressure disposition: Did not require urgent referral Impression Primary Impression: Acute bronchospasm Additional Impression: Cough Departure Information Prescriptions Azithromycin (ZITHROMAX) 250 Mg Tab 250 MG PO DAILY, #4 TAB Prov: Jasmin Williamson PA 07/22/17 Referrals Zunilda Perez M.D. (PCP) Patient Instructions My [facility] Additional Instructions Azithromycin(Zithromax) 250mg: Take one a day for 4 additional days. All antibiotics can cause diarrhea. If this occurs and you feel worse or it does not resolve in 1-2 days follow up with your doctor or return to the Emergency Department as this could be signs of serious underlying problems. Any medication can cause an allergic reaction, stop the pills immediately and return to the ER for rash, hives, breathing difficulties, or swelling. Albuterol Inhaler: Take 2 puffs every 4 hours while awake for the next 5-7 days , then as needed for cough or shortness of breath. Ibuprofen(Motrin, Advil) may be used for fever or pain. Use 600mg every six hours as needed. Take with food. Avoid using more than 2400mg in a 24 hour period. Do not use 2400mg per day for more than three consecutive days without physician direction. Prolonged inappropriate use can lead to stomach upset or ulcers. This is available over the counter and typically comes in 200mg tablets. (AND/OR) Acetaminophen(Tylenol) may be used for fever or pain. Use 1000mg every eight hours as needed. Avoid using more than 3000mg in a 24 hour period. This is available over the counter. Rest and drink plenty of fluids. Avoid strenuous activity until your symptoms resolve and your breathing returns to normal. Continue current medications. Return to the ER for chest pain, difficulty breathing, persistent fevers, vomiting, worsening of your condition, or as needed. Follow-up with your primary care physician next week for recheck. Problem Qualifiers
[2017-07-22] MEDS ORDERED: AZIT-60 PO (14:09)
[2017-07-22] MEDS ORDERED: ALBUTEROL HFA 8 GM INHALER INH ONE (14:15)
[2017-07-22] MEDS ORDERED: AZITHROMYCIN 250 MG TAB PO ONE (14:15)
[2017-07-22 15:02] VITALS: BP 131/94; PULSE 70; O2SAT 95
== END 2017-07-22 15:02 | disposition home or self-care (01) ==
LOC: C.EDB 10:57 → C.EDC 15:02
DX: J98.01 Acute bronchospasm (principal); R05 Cough; E11.9 Type 2 diabetes mellitus without complications; I10 Essential (primary) hypertension; E78.5 Hyperlipidemia, unspecified; I25.10 Atherosclerotic heart disease of native coronary artery without angina pectoris; G47.30 Sleep apnea, unspecified; Z95.5 Presence of coronary angioplasty implant and graft; Z87.891 Personal history of nicotine dependence; Z79.82 Long term (current) use of aspirin; Z79.4 Long term (current) use of insulin; Z79.84 Long term (current) use of oral hypoglycemic drugs

== ENCOUNTER → 2017-08-31 | Outpatient (CLI) | payer OTHER, MEDICARE ==
[2017-08-31 10:08] LABS: HEMOGLOBIN A1C 10.8 % (4.5-5.6)
== END | disposition home or self-care (01) ==
LOC: C.LAB1850 07:08
PROVIDERS: ATTEND Internal Medicine Cardiovascular Disease
DX: E11.9 Type 2 diabetes mellitus without complications (principal)

== ENCOUNTER → 2017-11-20 | Outpatient (CLI) | payer OTHER, MEDICARE ==
[2017-11-20 11:59] LABS: ALT/SGPT 21 U/L (12-78); AST/SGOT 14 U/L (15-37)
[2017-11-20 12:02] LABS: HEMOGLOBIN A1C 8.5 % (4.5-5.6)
== END | disposition home or self-care (01) ==
LOC: C.LABBC 08:11
PROVIDERS: ATTEND Family Medicine
DX: E11.9 Type 2 diabetes mellitus without complications (principal); E78.5 Hyperlipidemia, unspecified

== ENCOUNTER 2022-03-02 10:49 | Observation (INO) ==
[2022-03-02] MEDS ORDERED: OPTIRAY 320 125ml IV ONE (11:03)
--- NOTE | 2022-03-02 11:03 | Emergency Department Note ---
Impression & Plan AMS (altered mental status), Hypokalemia ED Provider Note NAME: ELAYNE WHITT JR AGE: 71 SEX: M : 1950 ARRIVES VIA: Ambulance INFORMANT: Patient ED PROVIDER(S): Terell Alexandra DO CHIEF COMPLAINT: Confusion HPI: Patient is a 71-year-old male who presents to the ER with a past medical history of hypertension, diabetes, CKD, CAD, ischemic cardiomyopathy and hyperlipidemia that presents for confusion. He received an injection from the pain clinic. Following the injection he was doing fine but around 930 he started to get confused and slurring his words. He denies any headache or change in vision. No chest pain or shortness of breath. No nausea, vomiting, or diarrhea. No dysuria, urgency, or frequency. No other masturbating or remitting factors. Stroke alert was initially called as per report from EMS patient had expressive aphasia but no other deficit. ROS: See above HPI for pertinent positives & negatives. A total of 10 systems reviewed and were otherwise negative. PAST MEDICAL HISTORY:See Below PAST SURGICAL HISTORY:See Below FAMILY HISTORY:See Below SOCIAL HISTORY:See Below HOME MEDICATIONS:See Below ALLERGIES:See Below VITALS:See Below PHYSICAL EXAMINATION: GENERAL: Sitting up in bed, alert, well appearing, well nourished, no distress, non-toxic EYE EXAM: normal conjunctiva. PERRL and EOM's intact. OROPHARYNX: no exudate, no erythema, lips, buccal mucosa, and tongue normal and mucous membranes are moist NECK: supple, no nuchal rigidity, no adenopathy, non-tender LUNGS: Clear to auscultation. Normal chest wall mechanics HEART: no murmurs, S1 normal and S2 normal ABDOMEN: abdomen soft, non-tender, normo-active bowel sounds, no masses, no rebound or guarding. UPPER EXTREMITIES: upper extremities are grossly normal. LOWER EXTREMITIES: No pitting edema. NEURO EXAM: Normal sensorium, cranial nerves II-XII intact, normal speech, no weakness of arms, no weakness of legs. No drift. Finger to nose intact. Gross se nsation intact. MEDICAL DECISION MAKING: Patient is a 71-year-old male who presents ER brought in for altered mental status. Initial report was a witnessed expressive aphasia. Stroke alert was called. Patient was taken emergently to CT with evaluated by myself at bedside. Initial exam he is oriented to person place and time with no focal deficit. Labs show no significant leukocytosis or anemia. INR was unremarkable. BMP with a creatinine at 1.6 slightly up from baseline. Troponin LFTs were unremarkable. COVID was negative. CT angio of the head and neck as well as CT of the head was negative. Discussed with telestroke and shows no focal deficit and story now appears to be more consistent with confusion discussed with the hospitalist for further evaluation with the confusion. Triage Nursing notes reviewed. Limited review of prior medical records performed Vital Signs: reviewed and remarkable for no significant abnormalities Differential diagnosis: Differential Diagnosis includes but is not limited to ischemic Stroke, hemorrhagic stroke, bells palsy, mass, neoplasm, migraine headache, seizure, subarachnoid hemorrhage, TIA, and transient global amnesia. ER treatment provided: See below Diagnostics interpreted by me: ECG: Sinus rhythm rate of 74 Normal axis No PVCs QTC 463 Cardiac Monitoring: An order was placed for continuous cardiac monitoring. The monitor shows a rate of 70 with sinus rhythm. Laboratory studies: As stated above and show below. Imaging studies: CT angios of the head and neck were negative Consultation(s): D/w Dr navarro for further evaluation Procedures: none Critical Care: None Past Med/Surg History Medical History Abdominal aortic aneurysm (AAA) 3.0 cm to 5.5 cm in diameter in male 4.2cm getting echo February 03. follows with Dr. Hart Angina pectoris Aortic aneurysm unaware of size CAD, multiple vessel Cardiac murmur Chronic back pain Chronic low back pain Claudication of both lower extremities Decreased cardiac ejection fraction 40% > yearly Echo Diabetes mellitus, type 2 Dilated aortic root Hyperlipidemia Hypertension Ischemic cardiomyopathy Kidney stones Lumbar facet joint syndrome Macular degeneration Myocardial Infarction unsure when--follows with Dr. Hart Sleep apnea cpap Somatic dysfunction of lower extremities Surgical History History of appendectomy History of arthroscopy right knee History of cardiac cath 06/2010 @ [facility] 09/2010 @ [facility] 2017@ [facility] > 2 stents total History of colonoscopy History of eye surgery left "laser for macular degenration" History of heart artery stent 06/2010 x1 stent 09/2010 x1 stent History of hernia repair History of lithotripsy History of wisdom tooth extraction Family History (Updated 03/02/22 @ 14:02 by Joshua Navarro) Grandmother (Maternal) Family history of diabetes mellitus Brother Family history of diabetes mellitus Sister Family history of diabetes mellitus Mother Family hx of colon cancer Stroke Other Cancer Diabetes Kidney disease No family history of adverse response to anesthesia Denies family history of Tuberculosis Allergies Emphysema of lung Lung disease Asthma Social History (Updated 03/02/22 @ 14:02 by Joshua Navarro) Smoking Status: Former smoker Tobacco Type: Cigarettes packs per day: 1; Years Smoked: 12; Second Hand Exposure: No; Hx Alcohol Use: Yes Alcohol type: beer and wine Alcohol Intake Frequency: Monthly or Less Hx Substance Use: No Preferred Language: Kinyarwanda Communication Ability: Effective Visual Impairment: No Limitations Hearing Ability: Normal Results Engineer Required: No Beliefs That Will Affect Care: None marital status: Current Living Situation: Spouse current occupational status: retired 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, 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, 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 How many Children do You have: 3 Other Information That Helps Us Care for You: No Feels Safe at Home: Yes Safety Concerns: Feels Safe At This Time Childhood Exposure to Second-Hand Smoke: Yes Dental Care, Regularly: No Physical Activity Frequency: Does not Exercise Seatbelt Use: always Sunscreen Use: No Assistive Devices: Assistive Devices Comment: Walking stick when walking in the [place] on uneven terrain Allergies Allergies Allergy/AdvReac Type Severity Reaction Status Date / Time No Known Allergies Allergy Mild Verified 03/02/22 07:52 Home Meds Home Medications Medication Instructions Recorded Confirmed aflibercept 2 mg/0.05 mL 2 mg INTRAVITREAL UD ml 04/10/19 03/02/22 intravitreal solution for injection (Eylea) aspirin 81 mg tablet,delayed 81 mg PO QPM #30 tab 04/10/19 03/02/22 release cholecalciferol (vitamin D3) 125 5,000 units PO QAM cap 04/10/19 03/02/22 mcg (5,000 unit) capsule nitroglycerin 0.4 mg sublingual 0.4 mg SL UD PRN tab 04/10/19 03/02/22 tablet cyanocobalamin (vitamin B-12) 1,000 mcg PO QAM 07/04/19 03/02/22 1,000 mcg tablet liraglutide 0.6 mg/0.1 mL (18 mg/3 1.8 mg SUBCUT QAM 01/18/22 03/02/22 mL) subcutaneous pen injector (Victoza 3-Jose) tamsulosin 0.4 mg capsule 0.4 mg PO HS 01/18/22 03/02/22 Previous Rx's Medication Instructions Recorded 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 (blood-glucose #1 ea NS 12/26/19 meter,continuous) insulin glargine 100 unit/mL (3 20 unit SQ HS 90 Days #18 ml 05/04/21 mL) subcutaneous pen (Lantus Solostar U-100 Insulin) metoprolol succinate 100 mg 100 mg PO BID #180 tab 05/10/21 tablet,extended release 24 hr clopidogrel 75 mg tablet (Plavix) 75 mg PO HS #90 tab 05/19/21 rosuvastatin 40 mg tablet 40 mg PO HS #90 tab 07/01/21 ranolazine 1,000 mg 1,000 mg PO BID #180 tab 01/07/22 tablet,extended release,12 hr insulin lispro 100 unit/mL 80 unit SQ CONT #80 ml 02/24/22 subcutaneous solution (Humalog U-100 Insulin) V-GO 40 (sub-q insulin device, 40 #3 box NS 03/01/22 unit) diazepam 5 mg tablet (Valium) 5 mg PO BID #2 tab 03/02/22 Results & Data (ED) Vital Signs Vital Signs - 24 hr 03/02/22 10:41 03/02/22 11:08 03/02/22 11:09 Temperature 36.4 C L Temperature Source Temporal Artery Scan Pulse Rate 74 75 82 Pulse Rate [Right Finger] Pulse Rate from SpO2 Sensor 75 81 Pulse Rhythm [Right Finger] Pulse Strength [Right Finger] Respiratory Rate 20 22 12 Respiratory Effort / Characteristics Non-Labored Respiratory Depth Normal Respiratory Pattern Blood Pressure 108/62 147/86 H Blood Pressure [Right Arm] Blood Pressure Mean 77 106 Blood Pressure Mean [Right Arm] Blood Pressure Position [Right Arm] Pulse Oximetry 98 96 96 Oxygen Delivery Method Room Air Sepsis Recent Fever Within 48 Hours No Sepsis New/Unexplained Change in Mental Status No Sepsis Action Taken by Nursing No Action Required 03/02/22 11:10 03/02/22 11:16 03/02/22 11:21 Temperature Temperature Source Pulse Rate 79 74 72 Pulse Rate [Right Finger] Pulse Rate from SpO2 Sensor 79 74 72 Pulse Rhythm [Right Finger] Pulse Strength [Right Finger] Respiratory Rate 17 21 16 Respiratory Effort / Characteristics Respiratory Depth Respiratory Pattern Blood Pressure 150/86 H 138/79 120/75 Blood Pressure [Right Arm] Blood Pressure Mean 107 98 90 Blood Pressure Mean [Right Arm] Blood Pressure Position [Right Arm] Pulse Oximetry 95 95 95 Oxygen Delivery Method Sepsis Recent Fever Within 48 Hours Sepsis New/Unexplained Change in Mental Status Sepsis Action Taken by Nursing 03/02/22 11:26 03/02/22 11:30 03/02/22 11:35 Temperature Temperature Source Pulse Rate 73 70 71 Pulse Rate [Right Finger] Pulse Rate from SpO2 Sensor 72 72 72 Pulse Rhythm [Right Finger] Pulse Strength [Right Finger] Respiratory Rate 27 H 22 23 Respiratory Effort / Characteristics Respiratory Depth Respiratory Pattern Blood Pressure 120/61 132/61 123/73 Blood Pressure [Right Arm] Blood Pressure Mean 80 84 89 Blood Pressure Mean [Right Arm] Blood Pressure Position [Right Arm] Pulse Oximetry 95 96 93 Oxygen Delivery Method Sepsis Recent Fever Within 48 Hours Sepsis New/Unexplained Change in Mental Status Sepsis Action Taken by Nursing 03/02/22 11:40 03/02/22 11:45 03/02/22 11:50 Temperature Temperature Source Pulse Rate 71 68 69 Pulse Rate [Right Finger] Pulse Rate from SpO2 Sensor 69 68 68 Pulse Rhythm [Right Finger] Pulse Strength [Right Finger] Respiratory Rate 13 13 10 L Respiratory Effort / Characteristics Respiratory Depth Respiratory Pattern Blood Pressure 137/74 144/79 H 137/73 Blood Pressure [Right Arm] Blood Pressure Mean 95 100 94 Blood Pressure Mean [Right Arm] Blood Pressure Position [Right Arm] Pulse Oximetry 94 91 90 Oxygen Delivery Method Sepsis Recent Fever Within 48 Hours Sepsis New/Unexplained Change in Mental Status Sepsis Action Taken by Nursing 03/02/22 11:55 03/02/22 12:00 03/02/22 12:23 Temperature Temperature Source Pulse Rate 71 68 Pulse Rate [Right Finger] 67 Pulse Rate from SpO2 Sensor 73 68 Pulse Rhythm [Right Finger] Regular Pulse Strength [Right Finger] Normal Respiratory Rate 13 13 18 Respiratory Effort / Characteristics Non-Labored Spontaneous Respiratory Depth Normal Respiratory Pattern Regular Blood Pressure 133/74 Blood Pressure [Right Arm] 139/80 Blood Pressure Mean 93 Blood Pressure Mean [Right Arm] 99 Blood Pressure Position [Right Arm] Lying Pulse Oximetry 91 92 92 Oxygen Delivery Method Room Air Sepsis Recent Fever Within 48 Hours Sepsis New/Unexplained Change in Mental Status Sepsis Action Taken by Nursing 03/02/22 12:40 03/02/22 12:45 03/02/22 12:51 Temperature Temperature Source Pulse Rate 67 65 Pulse Rate [Right Finger] Pulse Rate from SpO2 Sensor 67 63 Pulse Rhythm [Right Finger] Pulse Strength [Right Finger] Respiratory Rate 15 10 L Respiratory Effort / Characteristics Respiratory Depth Respiratory Pattern Blood Pressure 131/69 132/75 116/65 Blood Pressure [Right Arm] Blood Pressure Mean 89 94 82 Blood Pressure Mean [Right Arm] Blood Pressure Position [Right Arm] Pulse Oximetry 93 94 Oxygen Delivery Method Sepsis Recent Fever Within 48 Hours Sepsis New/Unexplained Change in Mental Status Sepsis Action Taken by Nursing 03/02/22 12:55 03/02/22 13:00 03/02/22 13:06 Temperature Temperature Source Pulse Rate 64 66 70 Pulse Rate [Right Finger] Pulse Rate from SpO2 Sensor 63 66 71 Pulse Rhythm [Right Finger] Pulse Strength [Right Finger] Respiratory Rate 11 L 15 25 H Respiratory Effort / Characteristics Respiratory Depth Respiratory Pattern Blood Pressure 123/79 124/72 132/72 Blood Pressure [Right Arm] Blood Pressure Mean 93 89 92 Blood Pressure Mean [Right Arm] Blood Pressure Position [Right Arm] Pulse Oximetry 93 96 96 Oxygen Delivery Method Sepsis Recent Fever Within 48 Hours Sepsis New/Unexplained Change in Mental Status Sepsis Action Taken by Nursing 03/02/22 13:11 03/02/22 13:16 03/02/22 13:21 Temperature Temperature Source Pulse Rate 69 72 67 Pulse Rate [Right Finger] Pulse Rate from SpO2 Sensor 69 73 67 Pulse Rhythm [Right Finger] Pulse Strength [Right Finger] Respiratory Rate 18 32 H 22 Respiratory Effort / Characteristics Respiratory Depth Respiratory Pattern Blood Pressure 129/64 131/79 124/66 Blood Pressure [Right Arm] Blood Pressure Mean 85 96 85 Blood Pressure Mean [Right Arm] Blood Pressure Position [Right Arm] Pulse Oximetry 96 96 96 Oxygen Delivery Method Sepsis Recent Fever Within 48 Hours Sepsis New/Unexplained Change in Mental Status Sepsis Action Taken by Nursing 03/02/22 13:26 03/02/22 13:30 03/02/22 13:31 Temperature Temperature Source Pulse Rate 82 71 68 Pulse Rate [Right Finger] Pulse Rate from SpO2 Sensor 76 72 70 Pulse Rhythm [Right Finger] Pulse Strength [Right Finger] Respiratory Rate 21 15 20 Respiratory Effort / Characteristics Respiratory Depth Respiratory Pattern Blood Pressure 133/76 133/73 Blood Pressure [Right Arm] Blood Pressure Mean 95 93 Blood Pressure Mean [Right Arm] Blood Pressure Position [Right Arm] Pulse Oximetry 96 95 97 Oxygen Delivery Method Sepsis Recent Fever Within 48 Hours Sepsis New/Unexplained Change in Mental Status Sepsis Action Taken by Nursing 03/02/22 13:40 03/02/22 13:45 Temperature Temperature Source Pulse Rate 72 70 Pulse Rate [Right Finger] Pulse Rate from SpO2 Sensor 73 70 Pulse Rhythm [Right Finger] Pulse Strength [Right Finger] Respiratory Rate 16 22 Respiratory Effort / Characteristics Respiratory Depth Respiratory Pattern Blood Pressure 123/66 132/75 Blood Pressure [Right Arm] Blood Pressure Mean 85 94 Blood Pressure Mean [Right Arm] Blood Pressure Position [Right Arm] Pulse Oximetry 96 97 Oxygen Delivery Method Sepsis Recent Fever Within 48 Hours Sepsis New/Unexplained Change in Mental Status Sepsis Action Taken by Nursing Laboratory Data Result diagrams: 03/02/22 11:10 03/02/22 11:10 Lab Results 03/02/22 03/02/22 03/02/22 Range/Units 11:10 11:10 11:10 WBC 8.21 (4.8-10.8) K/ul RBC 4.78 (4.63-6.08) M/uL Hgb 14.4 (14.0-18.0) g/dl Hct 43.7 (40.1-51.0) % MCV 91.4 (80.0-100.0) fL MCH 30.1 (25.0-34.0) pg MCHC 33.0 (32.0-36.0) g/dL RDW Std Deviation 43.5 (36.4-46.3) fL RDW Coeff of Damián 12.9 (11.5-14.5) % Plt Count 203 (130-400) K/uL MPV 9.6 (9.4-12.4) fL Immature Gran % (Auto) 0.4 % Neut % (Auto) 64.8 % Lymph % (Auto) 22.9 % [place] % (Auto) 9.7 % Eos % (Auto) 1.2 % Baso % (Auto) 1.0 % Neut # (Auto) 5.32 (1.4-6.5) K/uL Lymph # (Auto) 1.88 (1.2-3.4) K/uL [place] # (Auto) 0.80 (0.24-0.82) K/uL Eos # (Auto) 0.10 (0-0.50) K/uL Baso # (Auto) 0.08 (0-0.2) K/uL Immature Gran # (Auto) 0.03 H (0.00-0.02) K/uL PT 11.2 (9.0-12.0) Seconds INR 1.1 (0.9-1.1) APTT 28.8 (21.0-31.0) Seconds PTT Ratio 1.0 Sodium 136 (136-145) mmol/L Potassium 4.6 (3.5-5.1) mmol/L Chloride 107 (98-107) mmol/L Carbon Dioxide 24 (21-32) mmol/L Anion Gap 5 (3-11) BUN 22 (6-23) mg/dl Creatinine 1.62 H (0.6-1.4) mg/dl Est Cr Clr Drug Dosing 43.8 ml/min Est GFR ( Amer) 49.1 ml/min Est GFR (Non-Af Amer) 42.4 ml/min BUN/Creatinine Ratio 13.6 (10-20) Glucose 176 H (70-99(Fasting)) mg/dl Calcium 8.4 L (8.5-10.1) mg/dl Magnesium 1.9 (1.7-2.4) mg/dl Total Bilirubin 0.6 (0.2-1.0) mg/dl AST 13 (13-39) U/L ALT 13 (7-52) U/L Alkaline Phosphatase 48 (34-104) U/L Troponin I High Sens 15.9 (0-20) pg/ml Total Protein 6.4 (6.0-8.3) gm/dl Albumin 3.7 (3.4-5.0) gm/dl Globulin 2.7 (2.5-4.0) gm/dl Albumin/Globulin Ratio 1.4 (0.9-2) SARS-CoV-2, RNA, NAAT (NEGATIVE) 03/02/22 Range/Units 11:46 WBC (4.8-10.8) K/ul RBC (4.63-6.08) M/uL Hgb (14.0-18.0) g/dl Hct (40.1-51.0) % MCV (80.0-100.0) fL MCH (25.0-34.0) pg MCHC (32.0-36.0) g/dL RDW Std Deviation (36.4-46.3) fL RDW Coeff of Damián (11.5-14.5) % Plt Count (130-400) K/uL MPV (9.4-12.4) fL Immature Gran % (Auto) % Neut % (Auto) % Lymph % (Auto) % [place] % (Auto) % Eos % (Auto) % Baso % (Auto) % Neut # (Auto) (1.4-6.5) K/uL Lymph # (Auto) (1.2-3.4) K/uL [place] # (Auto) (0.24-0.82) K/uL Eos # (Auto) (0-0.50) K/uL Baso # (Auto) (0-0.2) K/uL Immature Gran # (Auto) (0.00-0.02) K/uL PT (9.0-12.0) Seconds INR (0.9-1.1) APTT (21.0-31.0) Seconds PTT Ratio Sodium (136-145) mmol/L Potassium (3.5-5.1) mmol/L Chloride (98-107) mmol/L Carbon Dioxide (21-32) mmol/L Anion Gap (3-11) BUN (6-23) mg/dl Creatinine (0.6-1.4) mg/dl Est Cr Clr Drug Dosing ml/min Est GFR ( Amer) ml/min Est GFR (Non-Af Amer) ml/min BUN/Creatinine Ratio (10-20) Glucose (70-99(Fasting)) mg/dl Calcium (8.5-10.1) mg/dl Magnesium (1.7-2.4) mg/dl Total Bilirubin (0.2-1.0) mg/dl AST (13-39) U/L ALT (7-52) U/L Alkaline Phosphatase (34-104) U/L Troponin I High Sens (0-20) pg/ml Total Protein (6.0-8.3) gm/dl Albumin (3.4-5.0) gm/dl Globulin (2.5-4.0) gm/dl Albumin/Globulin Ratio (0.9-2) SARS-CoV-2, RNA, NAAT NEGATIVE (NEGATIVE) Administered Medications Insulin Human Lispro (Humalog Insulin Pump) 1 ea N/A ACHS [facility]; Protocol Stop: 04/01/22 16:29 Last Admin: 03/02/22 16:53 Dose: 1 ea Documented by: [id number] Discontinued Medications Ioversol (Optiray 320 125ml) 119 ml IV ONCE ONE Stop: 03/02/22 11:04 Last Admin: 03/02/22 11:03 Dose: 119 ml Documented by: [id number] Imaging Data Radiologist's Impression: Head CT 03/02/22 10:[address] OF THE BRAIN; CT ANGIOGRAM OF THE BRAIN; CT ANGIOGRAM OF THE NECK CLINICAL HISTORY: Strokelike symptoms. COMPARISON STUDY: No priors. TECHNIQUE: Unenhanced axial CT scan of the brain is performed. Subsequently, following the IV administration of 119 of Optiray 320, CT angiogram of the head and neck was performed from the aortic arch to the vertex. Images are reviewed in the axial, sagittal, and coronal planes. 3-D MIPS images are created and assessed. IV contrast was administered without complication. All measurements were calculated based on NASCET criteria. A dose lowering technique was utilized adhering to the principles of ALARA. CT DOSE: 1251.91 mGy.cm FINDINGS: Brain parenchyma: There is age-related involutional change noting moderate subcortical and periventricular microangiopathic disease. There is no hemor rhage, mass effect, or evidence of acute territorial ischemia by CT criteria. There is no evidence of enhancing mass lesion on the angiogram phase images. The ventricles, sulci, and cisterns are prominent secondary to involutional change. Mineralization is noted in the basal ganglia. Guillen-white matter differentiation is preserved. No extra-axial fluid collection is seen. Thoracic aorta: There is atherosclerotic calcification of the thoracic aorta. There is mild aneurysmal dilatation of the ascending thoracic aorta which measures up to 4.1 cm. The aortic arch demonstrates bovine variant anatomy. Right carotid arterial system: The right common carotid artery is widely patent, as are the right internal and external carotid arteries. Calcified plaque is noted in the carotid bulb. There is tortuosity of the distal internal carotid artery below the skull base. Left carotid arterial system: The left common carotid artery is widely patent, as are the left internal and external carotid arteries. Calcified plaque is noted in the carotid bulb. Vertebral arteries: There is mild stenosis the origin of the right vertebral artery. The vertebral arteries are otherwise widely patent bilaterally noting left-sided dominance. Subclavian arteries: Widely patent bilaterally. Intracranial vasculature: There is atherosclerotic calcification of the cavernous carotid arteries. The internal carotid arteries are patent at the skull base, as are the anterior and middle cerebral arteries bilaterally. There is a dominant right anterior cerebral artery which bifurcates into bilateral anterior cerebral arteries at the level of the anterior horns of lateral ventricle. There is a large right posterior communicating artery. The vertebrobasilar system and posterior cerebral arteries are widely patent. The left vertebral artery is dominant. There is no aneurysm, high-grade stenosis, or focal vessel cut off seen throughout the intracranial circulation. Jugular veins: Patent bilaterally. Dural sinuses: Patent. Lung apices: Partially visualized upper lobe lung parenchyma appears clear. Soft tissues: The visualized pharyngeal soft tissues are normal in appearance noting angiographic phase technique. The oropharyngeal airway appears widely pat ent. The salivary and thyroid glands are normal in appearance. No cervical lymphadenopathy is seen. Skeletal structures: The skeletal structures are osteopenic. The calvarium appears intact. The cervical spine is within normal limits. No lytic or blastic lesion is seen. Orbits: The bony orbits are intact. Orbital contents are normal as visualized. Sinuses and mastoids: There is mild mucosal thickening within the right maxillary antrum. The remaining paranasal sinuses are clear. The mastoid air cells are well pneumatized. IMPRESSION: 1. There is no hemorrhage, mass effect, or evidence of acute territorial ischemia by CT criteria. 2. Unremarkable CT angiogram of the brain. 3. 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 4. Otherwise unremarkable CT angiogram of the neck. ACT 112: Negative or not required by law. Electronically signed by: Ede Mcknight M.D. 03/02/2022 11:12 AM Head CTA 03/02/22 10:[address] OF THE BRAIN; CT ANGIOGRAM OF THE BRAIN; CT ANGIOGRAM OF THE NECK CLINICAL HISTORY: Strokelike symptoms. COMPARISON STUDY: No priors. TECHNIQUE: Unenhanced axial CT scan of the brain is performed. Subsequently, following the IV administration of 119 of Optiray 320, CT angiogram of the head and neck was performed from the aortic arch to the vertex. Images are reviewed in the axial, sagittal, and coronal planes. 3-D MIPS images are created and assessed. IV contrast was administered without complication. All measurements were calculated based on NASCET criteria. A dose lowering technique was utilized adhering to the principles of ALARA. CT DOSE: 1251.91 mGy.cm FINDINGS: Brain parenchyma: There is age-related involutional change noting moderate subcortical and periventricular microangiopathic disease. There is no hemorrhage, mass effect, or evidence of acute territorial ischemia by CT criter ia. There is no evidence of enhancing mass lesion on the angiogram phase images. The ventricles, sulci, and cisterns are prominent secondary to involutional change. Mineralization is noted in the basal ganglia. Guillen-white matter differentiation is preserved. No extra-axial fluid collection is seen. Thoracic aorta: There is atherosclerotic calcification of the thoracic aorta. There is mild aneurysmal dilatation of the ascending thoracic aorta which measures up to 4.1 cm. The aortic arch demonstrates bovine variant anatomy. Right carotid arterial system: The right common carotid artery is widely patent, as are the right internal and external carotid arteries. Calcified plaque is noted in the carotid bulb. There is tortuosity of the distal internal carotid artery below the skull base. Left carotid arterial system: The left common carotid artery is widely patent, as are the left internal and external carotid arteries. Calcified plaque is noted in the carotid bulb. Vertebral arteries: There is mild stenosis the origin of the right vertebral artery. The vertebral arteries are otherwise widely patent bilaterally noting left-sided dominance. Subclavian arteries: Widely patent bilaterally. Intracranial vasculature: There is atherosclerotic calcification of the cavernous carotid arteries. The internal carotid arteries are patent at the skull base, as are the anterior and middle cerebral arteries bilaterally. There is a dominant right anterior cerebral artery which bifurcates into bilateral anterior cerebral arteries at the level of the anterior horns of lateral ventricle. There is a large right posterior communicating artery. The vertebrobasilar system and posterior cerebral arteries are widely patent. The left vertebral artery is dominant. There is no aneurysm, high-grade stenosis, or focal vessel cut off seen throughout the intracranial circulation. Jugular veins: Patent bilaterally. Dural sinuses: Patent. Lung apices: Partially visualized upper lobe lung parenchyma appears clear. Soft tissues: The visualized pharyngeal soft tissues are normal in appearance noting angiographic phase technique. The oropharyngeal airway appears widely patent. The salivary and thyroid glands are normal in appearance. No cervical lymphadenopathy is seen. Skeletal structures: The skeletal structures are osteopenic. The calvarium appears intact. The cervical spine is within normal limits. No lytic or blastic lesion is seen. Orbits: The bony orbits are intact. Orbital contents are normal as visualized. Sinuses and mastoids: There is mild mucosal thickening within the right maxillary antrum. The remaining paranasal sinuses are clear. The mastoid air cells are well pneumatized. IMPRESSION: 1. There is no hemorrhage, mass effect, or evidence of acute territorial ischemia by CT criteria. 2. Unremarkable CT angiogram of the brain. 3. 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 4. Otherwise unremarkable CT angiogram of the neck. ACT 112: Negative or not required by law. Electronically signed by: Ede Mcknight M.D. 03/02/2022 11:12 AM Neck CTA 03/02/22 10:[address] OF THE BRAIN; CT ANGIOGRAM OF THE BRAIN; CT ANGIOGRAM OF THE NECK CLINICAL HISTORY: Strokelike symptoms. COMPARISON STUDY: No priors. TECHNIQUE: Unenhanced axial CT scan of the brain is performed. Subsequently, following the IV administration of 119 of Optiray 320, CT angiogram of the head and neck was performed from the aortic arch to the vertex. Images are reviewed in the axial, sagittal, and coronal planes. 3-D MIPS images are created and assessed. IV contrast was administered without complication. All measurements were calculated based on NASCET criteria. A dose lowering technique was utilized adhering to the principles of ALARA. CT DOSE: 1251.91 mGy.cm FINDINGS: Brain parenchyma: There is age-related involutional change noting moderate subcortical and periventricular microangiopathic disease. There is no hemorrhage, mass effect, or evidence of acute territorial ischemia by CT criteria. There is no evidence of enhancing mass lesion on the angiogram phase i mages. The ventricles, sulci, and cisterns are prominent secondary to involutional change. Mineralization is noted in the basal ganglia. Guillen-white matter differentiation is preserved. No extra-axial fluid collection is seen. Thoracic aorta: There is atherosclerotic calcification of the thoracic aorta. There is mild aneurysmal dilatation of the ascending thoracic aorta which measures up to 4.1 cm. The aortic arch demonstrates bovine variant anatomy. Right carotid arterial system: The right common carotid artery is widely patent, as are the right internal and external carotid arteries. Calcified plaque is noted in the carotid bulb. There is tortuosity of the distal internal carotid artery below the skull base. Left carotid arterial system: The left common carotid artery is widely patent, as are the left internal and external carotid arteries. Calcified plaque is noted in the carotid bulb. Vertebral arteries: There is mild stenosis the origin of the right vertebral artery. The vertebral arteries are otherwise widely patent bilaterally noting left-sided dominance. Subclavian arteries: Widely patent bilaterally. Intracranial vasculature: There is atherosclerotic calcification of the cavernous carotid arteries. The internal carotid arteries are patent at the skull base, as are the anterior and middle cerebral arteries bilaterally. There is a dominant right anterior cerebral artery which bifurcates into bilateral anterior cerebral arteries at the level of the anterior horns of lateral ventricle. There is a large right posterior communicating artery. The vertebrobasilar system and posterior cerebral arteries are widely patent. The left vertebral artery is dominant. There is no aneurysm, high-grade stenosis, or focal vessel cut off seen throughout the intracranial circulation. Jugular veins: Patent bilaterally. Dural sinuses: Patent. Lung apices: Partially visualized upper lobe lung parenchyma appears clear. Soft tissues: The visualized pharyngeal soft tissues are normal in appearance noting angiographic phase technique. The oropharyngeal airway appears widely patent. The salivary and thyroid glands are normal in appearance. No cervical lymphadenopathy is seen. Skeletal structures: The skeletal structures are osteopenic. The calvarium appears intact. The cervical spine is within normal limits. No lytic or blastic lesion is seen. Orbits: The bony orbits are intact. Orbital contents are normal as visualized. Sinuses and mastoids: There is mild mucosal thickening within the right maxillary antrum. The remaining paranasal sinuses are clear. The mastoid air cells are well pneumatized. IMPRESSION: 1. There is no hemorrhage, mass effect, or evidence of acute territorial ischemia by CT criteria. 2. Unremarkable CT angiogram of the brain. 3. 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 4. Otherwise unremarkable CT angiogram of the neck. ACT 112: Negative or not required by law. Electronically signed by: Ede Mcknight M.D. 03/02/2022 11:12 AM Discharge Plan Visit Data Chief Complaint: Stroke Alert ED Provider: Terell Alexandra Discharge Problem: AMS (altered mental status), Hypokalemia Patient Disposition: Admitted As Inpatient Discharge Instructions Interventions: ED Discharge Assessment Last Done: 03/02/22 14:54 Discharge Problem: AMS (altered mental status) Qualifiers: Altered mental status type: unspecified Qualified Code(s): R41.82 - Altered mental status, unspecified
--- NOTE | 2022-03-02 11:13 | CT Scan Report ---
UNENHANCED CT OF THE BRAIN; CT ANGIOGRAM OF THE BRAIN; CT ANGIOGRAM OF THE NECK CLINICAL HISTORY: Strokelike symptoms. COMPARISON STUDY: No priors. TECHNIQUE: Unenhanced axial CT scan of the brain is performed. Subsequently, following the IV adminis tration of 119 of Optiray 320, CT angiogram of the head and neck was performed from the aortic arch t o the vertex. Images are reviewed in the axial, sagittal, and coronal planes. 3-D MIPS images are cre ated and assessed. IV contrast was administered without complication. All measurements were calculate d based on NASCET criteria. A dose lowering technique was utilized adhering to the principles of ALA RA. CT DOSE: 1251.91 mGy.cm FINDINGS: Brain parenchyma: There is age-related involutional change noting moderate subcortical and periventri cular microangiopathic disease. There is no hemorrhage, mass effect, or evidence of acute territorial ischemia by CT criteria. There is no evidence of enhancing mass lesion on the angiogram phase images . The ventricles, sulci, and cisterns are prominent secondary to involutional change. Mineralization is noted in the basal ganglia. Guillen-white matter differentiation is preserved. No extra-axial fluid c ollection is seen. Thoracic aorta: There is atherosclerotic calcification of the thoracic aorta. There is mild aneurysma l dilatation of the ascending thoracic aorta which measures up to 4.1 cm. The aortic arch demonstrate s bovine variant anatomy. Right carotid arterial system: The right common carotid artery is widely patent, as are the right int ernal and external carotid arteries. Calcified plaque is noted in the carotid bulb. There is tortuosi ty of the distal internal carotid artery below the skull base. Left carotid arterial system: The left common carotid artery is widely patent, as are the left international account executive al and external carotid arteries. Calcified plaque is noted in the carotid bulb. Vertebral arteries: There is mild stenosis the origin of the right vertebral artery. The vertebral ar teries are otherwise widely patent bilaterally noting left-sided dominance. Subclavian arteries: Widely patent bilaterally. Intracranial vasculature: There is atherosclerotic calcification of the cavernous carotid arteries. T he internal carotid arteries are patent at the skull base, as are the anterior and middle cerebral ar teries bilaterally. There is a dominant right anterior cerebral artery which bifurcates into bilatera l anterior cerebral arteries at the level of the anterior horns of lateral ventricle. There is a larg e right posterior communicating artery. The vertebrobasilar system and posterior cerebral arteries ar e widely patent. The left vertebral artery is dominant. There is no aneurysm, high-grade stenosis, or focal vessel cut off seen throughout the intracranial circulation. Jugular veins: Patent bilaterally. Dural sinuses: Patent. Lung apices: Partially visualized upper lobe lung parenchyma appears clear. Soft tissues: The visualized pharyngeal soft tissues are normal in appearance noting angiographic pha se technique. The oropharyngeal airway appears widely patent. The salivary and thyroid glands are nor mal in appearance. No cervical lymphadenopathy is seen. Skeletal structures: The skeletal structures are osteopenic. The calvarium appears intact. The cervic al spine is within normal limits. No lytic or blastic lesion is seen. Orbits: The bony orbits are intact. Orbital contents are normal as visualized. Sinuses and mastoids: There is mild mucosal thickening within the right maxillary antrum. The remaini ng paranasal sinuses are clear. The mastoid air cells are well pneumatized. IMPRESSION: 1. There is no hemorrhage, mass effect, or evidence of acute territorial ischemia by CT criteria. 2. Unremarkable CT angiogram of the brain. 3. 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 4. Otherwise unremarkable CT angiogram of the neck. ACT 112: Negative or not required by law. Electronically signed by: Ede Mcknight M.D. 03/02/2022 11:12 AM
[2022-03-02 11:50] LABS: INR 1.1 (0.9-1.1); Partial Thromboplastin Time 28.8 Seconds (21.0-31.0); Prothrombin Time 11.2 Seconds (9.0-12.0)
[2022-03-02 11:52] LABS: Basophils # (auto) 0.08 K/uL (0-0.2); Eosinophils % (auto) 1.2 %; Hematocrit (blood only) 43.7 % (40.1-51.0); Hemoglobin 14.4 g/dl (14.0-18.0); Immature Granulocytes # (auto) 0.03 K/uL (0.00-0.02); Immature Granulocytes % (auto) 0.4 %; Lymphocytes # (auto) 1.88 K/uL (1.2-3.4); Lymphocytes % (auto) 22.9 %; Mean Corpuscular Hemoglobin 30.1 pg (25.0-34.0); Mean Corpuscular Volume 91.4 fL (80.0-100.0); Mean Platelet Volume 9.6 fL (9.4-12.4); Monocytes % (auto) 9.7 %; Neutrophils # (auto) 5.32 K/uL (1.4-6.5); Neutrophils % (auto) 64.8 %; Platelet Count 203 K/uL (130-400); RDW Coefficient of Variation 12.9 % (11.5-14.5); RDW Standard Deviation 43.5 fL (36.4-46.3); Red Blood Count 4.78 M/uL (4.63-6.08); White Blood Count 8.21 K/ul (4.8-10.8)
[2022-03-02 11:53] LABS: Albumin Globulin Ratio 1.4 (0.9-2); Albumin Level 3.7 gm/dl (3.4-5.0); BUN Creatinine Ratio 13.6 (10-20); Bilirubin,Total 0.6 mg/dl (0.2-1.0); Calcium 8.4 mg/dl (8.5-10.1); Creatinine Clr Calc Pharmacy 43.8 ml/min; Est GFR (African American) 49.1 ml/min; Est GFR (Non-African American) 42.4 ml/min; Globulin 2.7 gm/dl (2.5-4.0); Magnesium 1.9 mg/dl (1.7-2.4); Potassium 4.6 mmol/L (3.5-5.1); Total Protein 6.4 gm/dl (6.0-8.3)
[2022-03-02 11:55] LABS: Troponin I High Sensitivity 15.9 pg/ml (0-20)
--- NOTE | 2022-03-02 12:55 | History & Physical Report ---
Date of Service March 02, 2022 Assessment & Plan (1) Expressive aphasia: Plan: His presentation is concerning at minimum for a TIA event. All symptoms at this time, fortunately, have resolved. CT head and CTA head/neck are negative for acute findings. He has numerous risk factors for TIA/stroke. He has been off his plavix for about 1 week and aspirin for about 24 hours. Complete the stroke w/u with MRI brain. Echo. Telemetry. Lipids/A1C in the am. PT, OT, speech evals. Neuro consult for their opinion. I do not see any infectious issues that would "mimic" a TIA. No metabolic disturbances either. The injection this am should not have caused his event. I confirmed with Dr Stratton from pain management that we can resume the asa/plavix late this evening. (2) TIA (transient ischemic attack): Plan: Today's events are concerning for TIA. See above. (3) Altered mental status: Plan: 2nd to #2. resolved. back to baseline. (4) Type 2 diabetes mellitus: Plan: Check a1c. Cont home lantus. Cont humalog pump and his Dexcom continuous glucose monitoring system but also check fingerstick blood sugars qid. He is adept at the operation of both devices and is awake/alert/oriented to manipulate the devices as needed. If any changes in his ability to control his DM will d/c the pump and chance to SC injections with pharmacy involvement. Hold victoza. (5) Hypertension: Plan: Allow some "permissiveness" until stroke work-up is complete. Lower metoprolol from BID to QDaily dosing. (6) CKD (chronic kidney disease) stage 3, GFR 30-59 ml/min: Plan: Stabe 3a, baseline CrCl 45-60. BMP in am for stability. (7) Chronic cough: Plan: Post-nasal drip/allergies? other? CXR free of infiltrates today. (8) REED (obstructive sleep apnea): Plan: May use CPAP from home. (9) Morbid obesity: Plan: BMI 40.5 (10) Lumbar facet joint syndrome: Plan: s/p L5/S1 injection today with local anesthetic only (no steroid). I do not believe that the injection today contributed in any fashion to his presentation. I spoke with Dr Stratton from pain management who performed the injection this am. Tomorrow's scheduled office visit with Mr Salazar will be canceled. It is permissible to resume his aspirin with plavix TONIGHT. (11) CAD, multiple vessel: Plan: no evidence of ACS at this time. no ischemic symptoms. he did have an echo in early January as an outpatient but the window views were poor. in light of #1 above will repeat the echo. resume asa/plavix tonight. cont ranexa. cont metoprolol succinate but lower to once daily dosing while performing his CVA w/u. cont statin agent. check lipids in am. serial troponins. telemetry to r/o dysrhythmia. (12) Hyperlipidemia: Plan: check lipids in am. statin in meantime. (13) Ischemic cardiomyopathy: Plan: echo 01/2021 with EF in the 50s but quality/window views were poor. will repeat echo. he is compensated on exam today. cont beta gulshan. Plan: place on observation status fully updated at bedside History of Present Illness Chief Complaint: difficulty speaking, "I just didn't feel right" Primary Care Provider: Howard Del Castillo MD 71yo male with history of T2DM on humalog pump, CAD s/p HI, ischemic cardiomyopathy with mild chronic systolic CHF, HTN, CKD stage 3, and chronic low back pain who presents after having had a 2+ hour episode of difficulty speaking, feeling "not right," not being able to answer questions correctly, and "knowing what my was saying but being unable to answer her." He had a regularly scheduled pain injection this AM with Dr Taylor Stratton at the pain management center about 0745 this am. The injection contained 2 anesthetic agents - Lidocaine 1% and Ropivicaine - and was centered at L5 and S1. He reports that during the procedure it was uncomfortable. Following the procedure he had mild hypotension by report but was ultimately released after his BP normalized. Following this visit he & his went to [employer] for breakfast. About 0930 as he was leaving the restaurant he started to not feel well. While walking with his she noted that he was not acting himself. He was unable to answer her questions but she was able to guide him back to their vehicle. He didn't have any obvious focal motor weakness or facial droop. He recalls the incident, stating that he could "hear his " but felt "off" and couldn't speak normally. They drove back to Dr Stratton's office. Vitals were stable. Glucose was well over [address] fingerstick and his personal Dexcom device. EMS was summoned and he was brought to [facility]. His difficulty with speaking and feeling abnormal lasted at least until about noon-time (2 to 2.5 hours in total). By the time of my assessment (1300 in the afternoon) he was speaking normally, answering questions normally, etc. He had been well over the last few days by his report, but his noted that since holding his plavix since February 24 he "was a bit slower with his walking, with his talking, etc." The plavix was held in preparation for today's pain management procedure. His aspirin was held for 24 hours. Allergies Allergy/AdvReac Type Severity Reaction Status Date / Time No Known Allergies Allergy Mild Verified 03/02/22 07:52 Home Medications Medication Instructions Recorded Confirmed Type aflibercept 2 mg/0.05 mL 2 mg INTRAVITREAL UD ml 04/10/19 03/02/22 History intravitreal solution for injection (Eylea) aspirin 81 mg tablet,delayed 81 mg PO QPM #30 tab 04/10/19 03/02/22 History release cholecalciferol (vitamin D3) 125 5,000 units PO QAM cap 04/10/19 03/02/22 History mcg (5,000 unit) capsule nitroglycerin 0.4 mg sublingual 0.4 mg SL UD PRN tab 04/10/19 03/02/22 History tablet cyanocobalamin (vitamin B-12) 1,000 mcg PO QAM 07/04/19 03/02/22 History 1,000 mcg tablet Dexcom G6 Installation Supervisor (blood-glucose #1 ea NS 12/26/19 03/02/22 Rx meter,continuous) insulin glargine 100 unit/mL (3 20 unit SQ HS 90 Days #18 ml 05/04/21 03/02/22 Rx mL) subcutaneous pen (Lantus Solostar U-100 Insulin) metoprolol succinate 100 mg 100 mg PO BID #180 tab 05/10/21 03/02/22 Rx tablet,extended release 24 hr clopidogrel 75 mg tablet (Plavix) 75 mg PO HS #90 tab 05/19/21 03/02/22 Rx rosuvastatin 40 mg tablet 40 mg PO HS #90 tab 07/01/21 03/02/22 Rx ranolazine 1,000 mg 1,000 mg PO BID #180 tab 01/07/22 03/02/22 Rx tablet,extended release,12 hr liraglutide 0.6 mg/0.1 mL (18 mg/3 1.8 mg SUBCUT QAM 01/18/22 03/02/22 History mL) subcutaneous pen injector (Victoza 3-Jose) tamsulosin 0.4 mg capsule 0.4 mg PO HS 01/18/22 03/02/22 History insulin lispro 100 unit/mL 80 unit SQ CONT #80 ml 02/24/22 03/02/22 Rx subcutaneous solution (Humalog U-100 Insulin) V-GO 40 (sub-q insulin device, 40 #3 box NS 03/01/22 03/02/22 Rx unit) diazepam 5 mg tablet (Valium) 5 mg PO BID #2 tab 03/02/22 03/02/22 Rx Past Med/Surg History Medical History (Updated 03/02/22 @ 23:27 by Joshua Baron) Angina pectoris Ascending aortic aneurysm 4.4cm - CTA chest, 2020. CAD, multiple vessel Cardiac murmur Chronic back pain Chronic low back pain Claudication of both lower extremities Decreased cardiac ejection fraction 40% > yearly Echo Diabetes mellitus, type 2 Dilated aortic root Hyperlipidemia Hypertension Ischemic cardiomyopathy Kidney stones Lumbar facet joint syndrome Macular degeneration Myocardial Infarction unsure when--follows with Dr. Hart Sleep apnea cpap Somatic dysfunction of lower extremities Surgical History History of appendectomy History of arthroscopy right knee History of cardiac cath 06/2010 @ [facility] 09/2010 @ [facility] 2017@ [facility] > 2 stents total History of colonoscopy History of eye surgery left "laser for macular degenration" History of heart artery stent 06/2010 x1 stent 09/2010 x1 stent History of hernia repair History of lithotripsy History of wisdom tooth extraction Family History (Updated 03/02/22 @ 14:02 by Joshua Baron) Grandmother (Maternal) Family history of diabetes mellitus Brother Family history of diabetes mellitus Sister Family history of diabetes mellitus Mother Family hx of colon cancer Stroke Other Cancer Diabetes Kidney disease No family history of adverse response to anesthesia Denies family history of Tuberculosis Allergies Emphysema of lung Lung disease Asthma Social History (Updated 03/02/22 @ 14:02 by Joshua Baron) Smoking Status: Former smoker Tobacco Type: Cigarettes packs per day: 1; Years Smoked: 12; Second Hand Exposure: No; Hx Alcohol Use: Yes Alcohol type: beer and wine Alcohol Intake Frequency: Monthly or Less Hx Substance Use: No Preferred Language: Cuban Communication Ability: Effective Visual Impairment: No Limitations Hearing Ability: Normal Window Systems Administrator Required: No Beliefs That Will Affect Care: None marital status: Current Living Situation: Spouse current occupational status: retired 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, 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, 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 How many Children do You have: 3 Other Information That Helps Us Care for You: No Feels Safe at Home: Yes Safety Concerns: Feels Safe At This Time Childhood Exposure to Second-Hand Smoke: Yes Dental Care, Regularly: No Physical Activity Frequency: Does not Exercise Seatbelt Use: always Sunscreen Use: No Assistive Devices: Assistive Devices Comment: Walking stick when walking in the [place] on uneven terrain Review of Systems Review of Systems: gen - no fevers, chills, anorexia, weight changes eyes - no visual changes HENT - no dysphagia neck - denies current pain cv - no chest pain or palpitations today pulm - no cough or dyspnea today GI - no nausea, emesis, diarrhea, abd pain or blood per rectum - no dysuria musculo - chronic low back pain with "heaviness" of legs neuro - b/l leg "heaviness" and weakness - chronic - 2nd to lumbar back issues; no paresthesias endo - most BSGs via Dexcom CGM system <200; nothing <70 today during his spell skin - no rash psych - good spirits Physical Exam Physical Exam: gen - morbidly obese, speech fluent/clear, no expressive or receptive aphasia, awake, alert, oriented eyes - PERRL; visual sorto full by direct confrontation; EOMI HENT - MMM, no lesions, nose clear neck - no JVD heart - RRR, s1 s2, no murmur lungs - CTA b/l back - band-aids present over pain injection sites low back abd - soft NT ND BS+ ext - no edema, pulses 2+ b/l neuro - strength 5/5 x 4 exts; DTRs 2+ b/l; finger/nose/finger maneuver without ataxia; gait not tested; CN 3-12 appear intact (initially suspicious for slight right lower facial droop but unlikely to be present) skin - no rash lymph - no cervical lymph nodes Results & Data Results & Data ([facility]) Vital Signs (Past 12 Hours) Vital Signs Temp Pulse Pulse Resp BP BP Pulse Ox 03/02/22 12:23 67 18 139/80 92 03/02/22 12:00 68 13 92 03/02/22 11:55 71 13 133/74 91 03/02/22 11:50 69 10 L 137/73 90 03/02/22 11:45 68 13 144/79 H 91 03/02/22 11:40 71 13 137/74 94 03/02/22 11:35 71 23 123/73 93 03/02/22 11:30 70 22 132/61 96 03/02/22 11:26 73 27 H 120/61 95 03/02/22 11:21 72 16 120/75 95 03/02/22 11:16 74 21 138/79 95 03/02/22 11:10 79 17 150/86 H 95 03/02/22 11:09 82 12 147/86 H 96 03/02/22 11:08 75 22 96 03/02/22 10:41 36.4 C L 74 20 108/62 98 Laboratory Results Laboratory Results - last 24 hr 03/02/22 03/02/22 03/02/22 11:10 11:10 11:10 WBC 8.21 RBC 4.78 Hgb 14.4 Hct 43.7 MCV 91.4 MCH 30.1 MCHC 33.0 RDW Std Deviation 43.5 RDW Coeff of Damián 12.9 Plt Count 203 MPV 9.6 Immature Gran % (Auto) 0.4 Neut % (Auto) 64.8 Lymph % (Auto) 22.9 [place] % (Auto) 9.7 Eos % (Auto) 1.2 Baso % (Auto) 1.0 Neut # (Auto) 5.32 Lymph # (Auto) 1.88 [place] # (Auto) 0.80 Eos # (Auto) 0.10 Baso # (Auto) 0.08 Immature Gran # (Auto) 0.03 H PT 11.2 INR 1.1 APTT 28.8 PTT Ratio 1.0 Sodium 136 Potassium 4.6 Chloride 107 Carbon Dioxide 24 Anion Gap 5 BUN 22 Creatinine 1.62 H Est Cr Clr Drug Dosing 43.8 Est GFR ( Amer) 49.1 Est GFR (Non-Af Amer) 42.4 BUN/Creatinine Ratio 13.6 Glucose 176 H Calcium 8.4 L Magnesium 1.9 Total Bilirubin 0.6 AST 13 ALT 13 Alkaline Phosphatase 48 Troponin I High Sens 15.9 Total Protein 6.4 Albumin 3.7 Globulin 2.7 Albumin/Globulin Ratio 1.4 SARS-CoV-2, RNA, NAAT 03/02/22 11:46 WBC RBC Hgb Hct MCV MCH MCHC RDW Std Deviation RDW Coeff of Damián Plt Count MPV Immature Gran % (Auto) Neut % (Auto) Lymph % (Auto) [place] % (Auto) Eos % (Auto) Baso % (Auto) Neut # (Auto) Lymph # (Auto) [place] # (Auto) Eos # (Auto) Baso # (Auto) Immature Gran # (Auto) PT INR APTT PTT Ratio Sodium Potassium Chloride Carbon Dioxide Anion Gap BUN Creatinine Est Cr Clr Drug Dosing Est GFR ( Amer) Est GFR (Non-Af Amer) BUN/Creatinine Ratio Glucose Calcium Magnesium Total Bilirubin AST ALT Alkaline Phosphatase Troponin I High Sens Total Protein Albumin Globulin Albumin/Globulin Ratio SARS-CoV-2, RNA, NAAT NEGATIVE Diagnostic Findings Head CT 03/02/22 10:[address] OF THE BRAIN; CT ANGIOGRAM OF THE BRAIN; CT ANGIOGRAM OF THE NECK CLINICAL HISTORY: Strokelike symptoms. COMPARISON STUDY: No priors. TECHNIQUE: Unenhanced axial CT scan of the brain is performed. Subsequently, following the IV administration of 119 of Optiray 320, CT angiogram of the head and neck was performed from the aortic arch to the vertex. Images are reviewed in the axial, sagittal, and coronal planes. 3-D MIPS images are created and assessed. IV contrast was administered without complication. All measurements were calculated based on NASCET criteria. A dose lowering technique was utilized adhering to the principles of ALARA. CT DOSE: 1251.91 mGy.cm FINDINGS: Brain parenchyma: There is age-related involutional change noting moderate subcortical and periventricular microangiopathic disease. There is no hemorrhage, mass effect, or evidence of acute territorial ischemia by CT criteria. There is no evidence of enhancing mass lesion on the angiogram phase images. The ventricles, sulci, and cisterns are prominent secondary to involutional change. Mineralization is noted in the basal ganglia. Guillen-white matter differentiation is preserved. No extra-axial fluid collection is seen. Thoracic aorta: There is atherosclerotic calcification of the thoracic aorta. There is mild aneurysmal dilatation of the ascending thoracic aorta which measures up to 4.1 cm. The aortic arch demonstrates bovine variant anatomy. Right carotid arterial system: The right common carotid artery is widely patent, as are the right internal and external carotid arteries. Calcified plaque is noted in the carotid bulb. There is tortuosity of the distal internal carotid artery below the skull base. Left carotid arterial system: The left common carotid artery is widely patent, as are the left internal and external carotid arteries. Calcified plaque is noted in the carotid bulb. Vertebral arteries: There is mild stenosis the origin of the right vertebral artery. The vertebral arteries are otherwise widely patent bilaterally noting left-sided dominance. Subclavian arteries: Widely patent bilaterally. Intracranial vasculature: There is atherosclerotic calcification of the cavernous carotid arteries. The internal carotid arteries are patent at the skull base, as are the anterior and middle cerebral arteries bilaterally. There is a dominant right anterior cerebral artery which bifurcates into bilateral anterior cerebral arteries at the level of the anterior horns of lateral ventricle. There is a large right posterior communicating artery. The vertebrobasilar system and posterior cerebral arteries are widely patent. The left vertebral artery is dominant. There is no aneurysm, high-grade stenosis, or focal vessel cut off seen throughout the intracranial circulation. Jugular veins: Patent bilaterally. Dural sinuses: Patent. Lung apices: Partially visualized upper lobe lung parenchyma appears clear. Soft tissues: The visualized pharyngeal soft tissues are normal in appearance noting angiographic phase technique. The oropharyngeal airway appears widely patent. The salivary and thyroid glands are normal in appearance. No cervical lymphadenopathy is seen. Skeletal structures: The skeletal structures are osteopenic. The calvarium appears intact. The cervical spine is within normal limits. No lytic or blastic lesion is seen. Orbits: The bony orbits are intact. Orbital contents are normal as visualized. Sinuses and mastoids: There is mild mucosal thickening within the right maxillary antrum. The remaining paranasal sinuses are clear. The mastoid air cells are well pneumatized. IMPRESSION: 1. There is no hemorrhage, mass effect, or evidence of acute territorial ischemia by CT criteria. 2. Unremarkable CT angiogram of the brain. 3. 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 4. Otherwise unremarkable CT angiogram of the neck. ACT 112: Negative or not required by law. Electronically signed by: Ede Mcknight M.D. 03/02/2022 11:12 AM Head CTA 03/02/22 10:[address] OF THE BRAIN; CT ANGIOGRAM OF THE BRAIN; CT ANGIOGRAM OF THE NECK CLINICAL HISTORY: Strokelike symptoms. COMPARISON STUDY: No priors. TECHNIQUE: Unenhanced axial CT scan of the brain is performed. Subsequently, following the IV administration of 119 of Optiray 320, CT angiogram of the head and neck was performed from the aortic arch to the vertex. Images are reviewed in the axial, sagittal, and coronal planes. 3-D MIPS images are created and assessed. IV contrast was administered without complication. All measurements were calculated based on NASCET criteria. A dose lowering technique was utilized adhering to the principles of ALARA. CT DOSE: 1251.91 mGy.cm FINDINGS: Brain parenchyma: There is age-related involutional change noting moderate subcortical and periventricular microangiopathic disease. There is no hemorrhage, mass effect, or evidence of acute territorial ischemia by CT criteria. There is no evidence of enhancing mass lesion on the angiogram phase images. The ventricles, sulci, and cisterns are prominent secondary to involutional change. Mineralization is noted in the basal ganglia. Guillen-white matter differentiation is preserved. No extra-axial fluid collection is seen. Thoracic aorta: There is atherosclerotic calcification of the thoracic aorta. There is mild aneurysmal dilatation of the ascending thoracic aorta which measures up to 4.1 cm. The aortic arch demonstrates bovine variant anatomy. Right carotid arterial system: The right common carotid artery is widely patent, as are the right internal and external carotid arteries. Calcified plaque is noted in the carotid bulb. There is tortuosity of the distal internal carotid artery below the skull base. Left carotid arterial system: The left common carotid artery is widely patent, as are the left internal and external carotid arteries. Calcified plaque is noted in the carotid bulb. Vertebral arteries: There is mild stenosis the origin of the right vertebral artery. The vertebral arteries are otherwise widely patent bilaterally noting left-sided dominance. Subclavian arteries: Widely patent bilaterally. Intracranial vasculature: There is atherosclerotic calcification of the cavernous carotid arteries. The internal carotid arteries are patent at the skull base, as are the anterior and middle cerebral arteries bilaterally. There is a dominant right anterior cerebral artery which bifurcates into bilateral anterior cerebral arteries at the level of the anterior horns of lateral ventricle. There is a large right posterior communicating artery. The vertebrobasilar system and posterior cerebral arteries are widely patent. The left vertebral artery is dominant. There is no aneurysm, high-grade stenosis, or focal vessel cut off seen throughout the intracranial circulation. Jugular veins: Patent bilaterally. Dural sinuses: Patent. Lung apices: Partially visualized upper lobe lung parenchyma appears clear. Soft tissues: The visualized pharyngeal soft tissues are normal in appearance noting angiographic phase technique. The oropharyngeal airway appears widely patent. The salivary and thyroid glands are normal in appearance. No cervical lymphadenopathy is seen. Skeletal structures: The skeletal structures are osteopenic. The calvarium appears intact. The cervical spine is within normal limits. No lytic or blastic lesion is seen. Orbits: The bony orbits are intact. Orbital contents are normal as visualized. Sinuses and mastoids: There is mild mucosal thickening within the right maxillary antrum. The remaining paranasal sinuses are clear. The mastoid air cells are well pneumatized. IMPRESSION: 1. There is no hemorrhage, mass effect, or evidence of acute territorial ischemia by CT criteria. 2. Unremarkable CT angiogram of the brain. 3. 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 4. Otherwise unremarkable CT angiogram of the neck. ACT 112: Negative or not required by law. Electronically signed by: Ede Mcknight M.D. 03/02/2022 11:12 AM Neck CTA 03/02/22 10:[address] OF THE BRAIN; CT ANGIOGRAM OF THE BRAIN; CT ANGIOGRAM OF THE NECK CLINICAL HISTORY: Strokelike symptoms. COMPARISON STUDY: No priors. TECHNIQUE: Unenhanced axial CT scan of the brain is performed. Subsequently, following the IV administration of 119 of Optiray 320, CT angiogram of the head and neck was performed from the aortic arch to the vertex. Images are reviewed in the axial, sagittal, and coronal planes. 3-D MIPS images are created and assessed. IV contrast was administered without complication. All measurements were calculated based on NASCET criteria. A dose lowering technique was utilized adhering to the principles of ALARA. CT DOSE: 1251.91 mGy.cm FINDINGS: Brain parenchyma: There is age-related involutional change noting moderate subcortical and periventricular microangiopathic disease. There is no hemorrhage, mass effect, or evidence of acute territorial ischemia by CT criteria. There is no evidence of enhancing mass lesion on the angiogram phase images. The ventricles, sulci, and cisterns are prominent secondary to involutional change. Mineralization is noted in the basal ganglia. Guillen-white matter differentiation is preserved. No extra-axial fluid collection is seen. Thoracic aorta: There is atherosclerotic calcification of the thoracic aorta. There is mild aneurysmal dilatation of the ascending thoracic aorta which measures up to 4.1 cm. The aortic arch demonstrates bovine variant anatomy. Right carotid arterial system: The right common carotid artery is widely patent, as are the right internal and external carotid arteries. Calcified plaque is noted in the carotid bulb. There is tortuosity of the distal internal carotid artery below the skull base. Left carotid arterial system: The left common carotid artery is widely patent, as are the left internal and external carotid arteries. Calcified plaque is noted in the carotid bulb. Vertebral arteries: There is mild stenosis the origin of the right vertebral artery. The vertebral arteries are otherwise widely patent bilaterally noting left-sided dominance. Subclavian arteries: Widely patent bilaterally. Intracranial vasculature: There is atherosclerotic calcification of the cavernous carotid arteries. The internal carotid arteries are patent at the skull base, as are the anterior and middle cerebral arteries bilaterally. There is a dominant right anterior cerebral artery which bifurcates into bilateral anterior cerebral arteries at the level of the anterior horns of lateral ventricle. There is a large right posterior communicating artery. The vertebrobasilar system and posterior cerebral arteries are widely patent. The left vertebral artery is dominant. There is no aneurysm, high-grade stenosis, or focal vessel cut off seen throughout the intracranial circulation. Jugular veins: Patent bilaterally. Dural sinuses: Patent. Lung apices: Partially visualized upper lobe lung parenchyma appears clear. Soft tissues: The visualized pharyngeal soft tissues are normal in appearance noting angiographic phase technique. The oropharyngeal airway appears widely patent. The salivary and thyroid glands are normal in appearance. No cervical lymphadenopathy is seen. Skeletal structures: The skeletal structures are osteopenic. The calvarium appears intact. The cervical spine is within normal limits. No lytic or blastic lesion is seen. Orbits: The bony orbits are intact. Orbital contents are normal as visualized. Sinuses and mastoids: There is mild mucosal thickening within the right maxillary antrum. The remaining paranasal sinuses are clear. The mastoid air cells are well pneumatized. IMPRESSION: 1. There is no hemorrhage, mass effect, or evidence of acute territorial ischemia by CT criteria. 2. Unremarkable CT angiogram of the brain. 3. 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 4. Otherwise unremarkable CT angiogram of the neck. ACT 112: Negative or not required by law. Electronically signed by: Ede Mcknight M.D. 03/02/2022 11:12 AM Code Status & VTE Plan Code Status full code PG Care Time/CCT Total # of Minutes Spent Total Time Spent with Patient: Total time spent is greater than 50% in coordination of care (as documented) at patient's floor/unit and/or counseling patient: Coding Level of Care Code INT OBSERVATION CARE 70M LVL 3 Diagnoses Expressive aphasia R47.01 TIA (transient ischemic attack) G45.9 Altered mental status R41.82 Type 2 diabetes mellitus E11.9 Hypertension I10 CKD (chronic kidney disease) stage 3, GFR 30-59 ml/min N18.30 Chronic cough R05 REED (obstructive sleep apnea) G47.33 Morbid obesity E66.01 Lumbar facet joint syndrome M47.816 CAD, multiple vessel I25.10 Hyperlipidemia E78.5 Ischemic cardiomyopathy I25.5
[2022-03-02] MEDS ORDERED: ACETAMINOPHEN 325 MG TAB PO PRN (15:40)
[2022-03-02] MEDS ORDERED: SUB Q INSULIN DEVICE SQ SCH (15:40)
[2022-03-02] MEDS ORDERED: [UNRECOGNIZED DRUG - OTHER] SQ SCH (15:40)
[2022-03-02] MEDS ORDERED: PHARMACIST DISCHARGE MED REC CONSULT PRN (15:40)
[2022-03-02] MEDS ORDERED: NITROGLYCERIN SL 0.4 MG/TAB TAB SL PRN (15:40)
[2022-03-02] MEDS ORDERED: ONDANSETRON INJ 2 MG/ML 2 ML VIAL IV PRN (15:40)
[2022-03-02] MEDS ORDERED: GLUCOSE 10 TAB/TUBE PO PRN (16:15)
[2022-03-02] MEDS ORDERED: Continuous Glucose Monitor SCH (16:15)
[2022-03-02] MEDS ORDERED: GLUCOSE 40% GEL 15 GM TUBE PO PRN (16:15)
[2022-03-02] MEDS ORDERED: INSULIN HUMAN LISPRO (humaLOG) 100 UNITS/ML VIAL SC PRN (16:15)
[2022-03-02] MEDS ORDERED: GLUCAGON FOR INJ 1 MG VIAL SQ PRN (16:15)
[2022-03-02] MEDS ORDERED: CARBOHYDRATES FOR HYPOGLYCEMIA PO PRN (16:15)
[2022-03-02] MEDS ORDERED: DEXTROSE 50% 50 ML SYRINGE IV PRN (16:15)
[2022-03-02] MEDS ORDERED: LORazepam 0.5 MG in SYRINGE 0.25 ML IV PRN (20:54)
[2022-03-02] MEDS: RANOLAZINE 500 MG ER TAB PO SCH (20:57)
[2022-03-02] MEDS ORDERED: ROSUVASTATIN CALCIUM 20 MG TAB PO SCH (21:00)
[2022-03-02] MEDS ORDERED: LANTUS PER UNIT CHARGE SQ SCH (21:00)
[2022-03-02] MEDS ORDERED: TAMSULOSIN HCL 0.4 MG CAP PO SCH (21:00)
--- NOTE | 2022-03-02 23:03 | Electrocardiogram Report ---
Test Reason : Blood Pressure : / mmHG Vent. Rate : 074 BPM Atrial Rate : 074 BPM P-R Int : 160 ms QRS Dur : 096 ms QT Int : 418 ms P-R-T Axes : 045 002 048 degrees QTc Int : 463 ms Normal sinus rhythm When compared with ECG of 05-JUL-2021 02:14, No significant change was found Confirmed by Mike Hart ([id number]) on 03/02/2022 11:03:21 PM Referred By: REFERRED SELF Confirmed By:Mike Hart
[2022-03-02] MEDS ORDERED: CLOPIDOGREL BISULFATE 75 MG TAB PO ONE (23:19)
[2022-03-03] MEDS: ASPIRIN 81 MG ECTAB PO SCH ×2 (00:25→09:04)
[2022-03-03 07:57] LABS: Basophils # (auto) 0.05 K/uL (0-0.2); Basophils % (auto) 0.7 %; Eosinophils # (auto) 0.09 K/uL (0-0.50); Eosinophils % (auto) 1.2 %; Hematocrit (blood only) 44.5 % (40.1-51.0); Hemoglobin 14.9 g/dl (14.0-18.0); Immature Granulocytes # (auto) 0.03 K/uL (0.00-0.02); Immature Granulocytes % (auto) 0.4 %; Lymphocytes # (auto) 2.22 K/uL (1.2-3.4); Lymphocytes % (auto) 29.4 %; Mean Corpuscular Hemoglobin 30.2 pg (25.0-34.0); Mean Corpuscular Hgb Conc 33.5 g/dL (32.0-36.0); Mean Corpuscular Volume 90.1 fL (80.0-100.0); Mean Platelet Volume 9.9 fL (9.4-12.4); Monocytes # (auto) 0.87 K/uL (0.24-0.82); Monocytes % (auto) 11.5 %; Neutrophils # (auto) 4.29 K/uL (1.4-6.5); Neutrophils % (auto) 56.8 %; Platelet Count 192 K/uL (130-400); RDW Coefficient of Variation 12.9 % (11.5-14.5); RDW Standard Deviation 42.2 fL (36.4-46.3); Red Blood Count 4.94 M/uL (4.63-6.08); White Blood Count 7.55 K/ul (4.8-10.8)
[2022-03-03 08:21] LABS: BUN Creatinine Ratio 14.5 (10-20); Chol HDL Ratio 4.2 (0-5); Creatinine Clr Calc Pharmacy 58.1 ml/min; Est GFR (African American) 50.2 ml/min; Est GFR (Non-African American) 43.3 ml/min; Potassium 4.1 mmol/L (3.5-5.1)
--- NOTE | 2022-03-03 08:27 | Magnetic Resonance Report ---
MR brain wo con HISTORY: 71 years-old Male TIA vs stroke; exp aphasia acute strokelike symptoms COMPARISON: Head CT 03/02/2022 TECHNIQUE: Multiplanar multisequence MRI of the brain was obtained without the use of IV contrast. FINDINGS: There is no restricted diffusion to suggest acute or subacute infarct. Partially empty sella. Midline structures are otherwise unremarkable. Degenerative changes of the imaged cervical spine. The study is mildly motion degraded. No acute intracranial hemorrhage, midline shift, abnormal extra-axial collection, hydrocephalus or in tracranial mass. Senescent calcifications of the basal ganglia. Involutional changes. Moderate to ext ensive T2/FLAIR hyperintense foci are noted throughout the white matter suggestive of chronic microva scular ischemic disease. Cerebral venous sinuses and major arterial flow voids appear patent. Mastoid air cells are clear. Mil d mucosal thickening of the maxillary sinuses with hypoplastic frontal sinuses. The skull, orbits and soft tissues are unremarkable. IMPRESSION: 1. No acute intracranial abnormality. No acute or subacute infarct. 2. Involutional changes with chronic microvascular ischemic disease. ACT 112: Negative or not required by law. The above report was generated using voice recognition software. It may contain grammatical, syntax o r spelling errors. Electronically signed by: Victor Hugo Zavaleta M.D. 03/03/2022 8:26 AM
[2022-03-03] MEDS ORDERED: PERFLUTREN LIPID MICROSPHERE (DEFINITY) IV ONE (08:32)
--- NOTE | 2022-03-03 08:55 | Neurology Consultation ---
Date of Consultation March 03, 2022 Assessment & Plan (1) TIA (transient ischemic attack): (2) AMS (altered mental status): (3) Expressive aphasia: (4) Hypertension: (5) Uncontrolled type 2 diabetes mellitus: This patient had an episode of difficulty with speech and word-finding, as well as some confusion, on March 02, lasting about 2-3 hours. Clinically, he is back to baseline with normal mentation and speech. He has no focal neurologic findings, meningeal signs, or encephalopathy currently. Interestingly, he has stopped his Plavix and aspirin recently because of a procedure March 02. Overall, suspect his event was a TIA. He has significant risk factors for stroke and TIA is including hypertension, insulin-dependent diabetes mellitus, dyslipidemia, and age. He is a former smoker. Recommendations: 1. Continue on clopidogrel 75 mg daily plus aspirin 81 mg daily. 2. control blood pressure as you are doing, aiming for a mean arterial pressure of 95-100. 3. Continue rosuvastatin 40 mg daily. I am not certain he is a high dose statin candidate, given his low total cholesterol 4. hemoglobin A1c is pending but control glucose to lower hemoglobin A1c to less than 7. 5. echocardiogram is pending. 6. I have no further neurologic testing or treatment recommendations to make at this time. We can follow up as an outpatient in 2-3 weeks with a PA in [facility]. Overall, I spent a total of 75 minutes with this case including review of records, review of CT and MRI films, direct evaluation the patient at bedside, and discussion of the case with the patient and RN at bedside, and Dr. Bowen, including differential diagnosis and treatment options. History of Present Illness Reason for Consultation: Patient is a 71-year-old, where was asked to see at the request of Dr. Baron, for neurologic consultation regarding new onset confusion and speech issues. Requesting Physician: Dr. Baron Attending Physician: Costa Bowen MD History of Present Illness patient has a history of insulin-dependent diabetes and coronary artery disease with ischemic cardiomyopathy going on now for about 10 years. He has dyslipidemia as well. he also has been has been diagnosed with chronic kidney disease and hypertension. He quit cigarette smoking age 26. cardiology has this patient on clopidogrel 75 mg plus aspirin 81 mg daily for at least several years. Patient has been seen by pain management For his chronic low back pain. He has had injections in the without difficulty. He will get pain across his lower back particularly with standing and activity. More he is up on his feet the more his legs feel heavy and achy in general bilaterally, symmetrically. He does not have radicular traveling pain otherwise. When he is at rest, his legs are asymptomatic. MRI of the lumbar spine July of 2021 revealed mild spondylosis and degenerative changes of disc and bone but no significant spinal stenosis. Patient stopped his clopidogrel 8 days ago and then his aspirin 2 days ago for a procedure on March 02. He woke up March 02 at 5:30 a.m. feeling well. he went to Pain Management and received ropivacaine injections bilaterally in L5 and the sacral ala by Dr. Stratton completing around 0817. he was discharged in good condition from Pain Management at 0847, and then he and his went to the [employer] [facility] for breakfast. He finished breakfast, feeling well the whole time he was there. He stood up to leave around 0930 and when he got to the dura he suddenly felt a little confused and like his legs could not move. He apparently was not getting words out well. His legs felt heavy but he had no focal weakness, he had no new numbness or vision issues. His helped him walk to the car and he was driven back to pain management. blood pressure was 139/83. He was taken via ambulance to the emergency room. He arrived to the emergency room March 02 at 1041, with a temperature of 36.4, pulse 74 regular, respiratory rate 20 and comfortable, blood pressure 108/62, and O2 saturation 98%. He is a little bit of confusion and difficulty getting words out he felt in the emergency room. By 2 hours (from the onset of the symptoms) he felt he was back to baseline with speech both speech and cognition. He has not had any symptoms or issues since. CBC was unremarkable. Chem profile was remarkable for a creatinine of 1.6 and a glucose of 176. CT scan of the head showed no acute changes. CT angiography of the head was unremarkable. CT angiography of the neck was remarkable for a mild stenosis of the origin of the right vertebral artery. There is also a 4.1 cm mild dilation of the ascending thoracic aorta. MRI of the brain showed no acute stroke or changes. There is mild generalized cerebral atrophy and [id number] old small vessel ischemic disease seen. This morning he is feeling well with no pain, weakness, numbness, speech issues, or confusion. Blood pressure is 130/78. He has been in sinus rhythm since admission , and currently is rate is in the 60s. Echocardiogram is pending. Cholesterol is 122 and triglycerides of 188, on rosuvastatin 40 mg daily. Allergies Allergy/AdvReac Type Severity Reaction Status Date / Time No Known Allergies Allergy Mild Verified 03/02/22 07:52 Home Medications Medication Instructions Recorded Confirmed Type aflibercept 2 mg/0.05 mL 2 mg INTRAVITREAL UD ml 04/10/19 03/02/22 History intravitreal solution for injection (Eylea) aspirin 81 mg tablet,delayed 81 mg PO QPM #30 tab 04/10/19 03/02/22 History release cholecalciferol (vitamin D3) 125 5,000 units PO QAM cap 04/10/19 03/02/22 History mcg (5,000 unit) capsule nitroglycerin 0.4 mg sublingual 0.4 mg SL UD PRN tab 04/10/19 03/02/22 History tablet cyanocobalamin (vitamin B-12) 1,000 mcg PO QAM 07/04/19 03/02/22 History 1,000 mcg tablet Dexcom G6 Acid Splicer (blood-glucose #1 ea NS 12/26/19 03/02/22 Rx meter,continuous) insulin glargine 100 unit/mL (3 20 unit SQ HS 90 Days #18 ml 05/04/21 03/02/22 Rx mL) subcutaneous pen (Lantus Solostar U-100 Insulin) metoprolol succinate 100 mg 100 mg PO BID #180 tab 05/10/21 03/02/22 Rx tablet,extended release 24 hr clopidogrel 75 mg tablet (Plavix) 75 mg PO HS #90 tab 05/19/21 03/02/22 Rx rosuvastatin 40 mg tablet 40 mg PO HS #90 tab 07/01/21 03/02/22 Rx ranolazine 1,000 mg 1,000 mg PO BID #180 tab 01/07/22 03/02/22 Rx tablet,extended release,12 hr liraglutide 0.6 mg/0.1 mL (18 mg/3 1.8 mg SUBCUT QAM 01/18/22 03/02/22 History mL) subcutaneous pen injector (Techpointza 3-Jose) tamsulosin 0.4 mg capsule 0.4 mg PO HS 01/18/22 03/02/22 History insulin lispro 100 unit/mL 80 unit SQ CONT #80 ml 02/24/22 03/02/22 Rx subcutaneous solution (Humalog U-100 Insulin) V-GO 40 (sub-q insulin device, 40 #3 box NS 03/01/22 03/02/22 Rx unit) diazepam 5 mg tablet (Valium) 5 mg PO BID #2 tab 03/02/22 03/02/22 Rx Patient History Medical History Angina pectoris Ascending aortic aneurysm 4.4cm - CTA chest, 2020. CAD, multiple vessel Cardiac murmur Chronic back pain Chronic low back pain Claudication of both lower extremities Decreased cardiac ejection fraction 40% > yearly Echo Diabetes mellitus, type 2 Dilated aortic root Hyperlipidemia Hypertension Ischemic cardiomyopathy Kidney stones Lumbar facet joint syndrome Macular degeneration Myocardial Infarction unsure when--follows with Dr. Hart Sleep apnea cpap Somatic dysfunction of lower extremities Surgical History History of appendectomy History of arthroscopy right knee History of cardiac cath 06/2010 @ [facility] 09/2010 @ [facility] 2017@ [facility] > 2 stents total History of colonoscopy History of eye surgery left "laser for macular degenration" History of heart artery stent 06/2010 x1 stent 09/2010 x1 stent History of hernia repair History of lithotripsy History of wisdom tooth extraction Family History Grandmother (Maternal) Family history of diabetes mellitus Brother Family history of diabetes mellitus Sister Family history of diabetes mellitus Mother , in her early 80s Family hx of colon cancer Stroke Father , the patient knows little to nothing of his father or his father's medical history No problems noted. Other Cancer Diabetes Kidney disease No family history of adverse response to anesthesia Denies family history of Tuberculosis Allergies Emphysema of lung Lung disease Asthma Social History (Updated 03/03/22 @ 08:43 by Yan Mendoza MD) Smoking Status: Former smoker Tobacco Type: Cigarettes Age Quit Using Tobacco: 26; packs per day: 1; Years Smoked: 12; Second Hand Exposure: No; Hx Alcohol Use: Yes Alcohol type: beer and wine Alcohol Intake Frequency: Monthly or Less Alcohol Intake Frequency Comment: patient averages 1-2 beers per week. 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 How many Children do You have: 3 Other Information That Helps Us Care for You: No Feels Safe at Home: Yes Safety Concerns: Feels Safe At This Time Childhood Exposure to Second-Hand Smoke: Yes Dental Care, Regularly: No Physical Activity Frequency: Does not Exercise Seatbelt Use: always Sunscreen Use: No Assistive Devices: Assistive Devices Comment: Walking stick when walking in the [place] on uneven terrain Review of Systems Constitutional: no fever, no fatigue and no weakness Eyes: no diplopia, no eye pain and no worsening vision Ear, Nose, Mouth, Throat: no ear pain, no tinnitus, no hearing loss, no dizziness, no snoring, no hoarseness and no dysphagia Respiratory: no cough and no dyspnea Cardiovascular: no chest pain, no palpitations and no lightheadedness Gastrointestinal: no abdominal pain, no nausea and no vomiting Musculoskeletal: + back pain; no neck pain, no radicular pain, no joint pain and no myalgia Integumentary: no rash and no lesions Neurologic: + localized weakness; no gait abnormality, no generalized weakness, no tingling, no numbness, no tremor(s), no abnormal movements, no headache(s), no abnormal speech, no confusion and no memory loss Psychiatric: no depression, no irritability, no anxiety, no difficulty concentrating, no confusion and no hallucinations Endocrine: no fatigue and no flushing Hematologic / Lymphatic: no easy bleeding and no easy bruising Allergy / Immunological: no urticaria and no problem reported Exam (Neuro) Physical Exam: The patient is right-handed. The patient is awake, alert, and attentive. Speech is normal without any aphasia or dysarthria. The patient can name objects, repeat phrases, and has normal spontaneous speech. Mentation and thought processes are intact, with orientation to person, place and time, and normal fund of knowledge. Attention and concentration are normal. Mood and affect are normal and appropriate. General appearance and grooming are normal. Short and long-term memory are intact. Pupils are 4 mm bilaterally and reactive to light. Extraocular eye muscles are intact without nystagmus. Visual acuity and visual sorto seem normal grossly to confrontation. There are no deficits to sensation in the face in all 3 distributions of the fifth cranial nerve bilaterally. Corneal reflexes are positive bilaterally. Facial strength and symmetry was normal bilaterally. Hearing seems normal bilaterally. Palate moves well without asymmetry. There is normal sternocleidomastoid and trapezius (shoulder shrug) strength bilaterally. Tongue is midline with good strength bilaterally. Neck has a full range of motion without discomfort. There are no cervical bruits bilaterally. There are no cranial or ocular bruits. Heart is without murmur. There is a regular rhythm and rate. Cervical, thoracic, and lumbar spine are nontender to palpation. Gait was not tested, but stance sitting up in bed is normal. With outstretched arms there is no drift. There are no resting, postural, or action tremors. There is no ataxia with finger to nose testing. There is good facility in the hands. No other abnormal involuntary movements are noted. Motor strength is 5/5 diffusely in the arms bilaterally including deltoids, biceps, triceps, brachioradialis, wrist flexors and extensors, fireboat operator, and intrinsic hand muscles. Motor strength is 5/5 diffusely in the legs bilaterally including hip flexors, quadriceps, hamstrings, gastrocnemius, tibialis anterior, tibialis posterior, and Peroneii muscles. Toe extensors are normal and there is good bulk in the extensor digitorum brevis muscles bilaterally. The limbs have good tone without rigidity or spasticity. There is no atrophy noted in the muscles. Muscle bulk is normal, there is no tenderness to palpation, no myotonia to percussion, and no fasciculations seen. Sensory examination is intact to touch and pin throughout all 4 limbs diffusely. Reflexes are 1/4 in the biceps, triceps, brachioradialis, quadriceps, and Achilles tendons bilaterally. There is no clonus bilaterally. Toes are downgoing with plantar stimulation bilaterally. Peripheral pulses are present and of normal quality distally in all 4 limbs. There is no peripheral edema noted in the limbs. Results & Data ([facility]) Vital Signs (Past 12 Hours) Vital Signs Temp Pulse Pulse Resp BP Pulse Ox 03/03/22 07:00 61 03/03/22 03:53 36.7 C 68 22 130/78 95 03/02/22 23:05 69 PG Care Time/CCT Total # of Minutes Spent Total Time Spent with Patient: Total time spent is greater than 50% in coordination of care (as documented) at patient's floor/unit and/or counseling patient: Coding Level of Care Code INT OBSERVATION CARE 70M LVL 3 Diagnoses AMS (altered mental status) R41.82 Altered mental status type: unspecified TIA (transient ischemic attack) G45.9 Expressive aphasia R47.01 Hypertension I10 Uncontrolled type 2 diabetes mellitus E11.65 Time Spent (min) 75 Comment Add modifiers if able (1) AMS (altered mental status) Altered mental status type: unspecified Qualified Code(s): R41.82 - Altered mental status, unspecified
[2022-03-03] MEDS: RANOLAZINE 500 MG ER TAB PO SCH (08:57)
[2022-03-03] MEDS ORDERED: CHOLECALCIFEROL 1,000 UNITS 25 MCG TAB PO SCH (09:00)
[2022-03-03] MEDS ORDERED: CLOPIDOGREL BISULFATE 75 MG TAB PO SCH (09:00)
[2022-03-03] MEDS ORDERED: CYANOCOBALAMIN (B-12) 500 MCG TABLET PO SCH (09:00)
[2022-03-03] MEDS ORDERED: METOPROLOL SUCC 50MG EXT REL TAB PO SCH (09:00)
[2022-03-03 09:05] LABS: Estimated Average Glucose 157 mg/dl; Hemoglobin A1C 7.1 % (4.5-5.6)
[2022-03-03] MEDS ORDERED: STROKE PATIENT DISCHARGE STA (11:40)
--- NOTE | 2022-03-03 11:49 | Discharge Summary ---
Date of Service March 03, 2022 Admission HPI Per Admitting Provider 71yo male with history of T2DM on humalog pump, CAD s/p PA, ischemic cardiomyopathy with mild chronic systolic CHF, HTN, CKD stage 3, and chronic low back pain who presents after having had a 2+ hour episode of difficulty speaking, feeling "not right," not being able to answer questions correctly, and "knowing what my was saying but being unable to answer her." He had a regularly scheduled pain injection this AM with Dr Taylor Stratton at the pain management center about 0745 this am. The injection contained 2 anesthetic agents - Lidocaine 1% and Ropivicaine - and was centered at L5 and S1. He reports that during the procedure it was uncomfortable. Following the procedure he had mild hypotension by report but was ultimately released after his BP normalized. Following this visit he & his went to [email or web address] for breakfast. About 0930 as he was leaving the restaurant he started to not feel well. While walking with his she noted that he was not acting himself. He was unable to answer her questions but she was able to guide him back to their vehicle. He didn't have any obvious focal motor weakness or facial droop. He recalls the incident, stating that he could "hear his " but felt "off" and couldn't speak normally. They drove back to Dr Stratton's office. Vitals were stable. Glucose was well over [address] fingerstick and his personal Dexcom device. EMS was summoned and he was brought to [facility]. His difficulty with speaking and feeling abnormal lasted at least until about noon-time (2 to 2.5 hours in total). By the time of my assessment (1300 in the afternoon) he was speaking normally, answering questions normally, etc. He had been well over the last few days by his report, but his noted that since holding his plavix since February 24 he "was a bit slower with his walking, with his talking, etc." The plavix was held in preparation for today's pain management procedure. His aspirin was held for 24 hours. Principal Diagnosis Expressive Aphasia Discharge Exam General: A&Ox3. NAD. Cooperative. HEENT: Atraumatic, normocephalic. Pulm: CTAB A&P. -wheezes, -rales, -rhonchi. Symmetrical chest rise. No increase in work of breathing. No respiratory distress. Cardiac: RRR, -mrg. Radial pulses intact and symmetrical. Abdominal: Nontender, nondistended, soft. BS present. CRANIAL NERVES: II: Pupils equal and reactive, no relative afferent pupillary defect, no VF cuts III, IV, : EOM intact, no gaze preference or deviation, no nystagmus. V: normal sensation in V1, V2, and V3 segments bilaterally VII: no asymmetry, no nasolabial fold flattening VIII: normal hearing to speech IX, X: normal palatal elevation, no uvular deviation XI: 5/5 head turn and 5/5 shoulder shrug bilaterally XII: midline tongue protrusion MOTOR: RUE: 5/5 Shoulder internal rotation, external rotation, flexion, extension, abduction, adduction 5/5 Elbow flexion/extension, wrist flexion/extension 5/5 transportation director strength, finger flexion/extension, interosseus LUE: 5/5 Shoulder internal rotation, external rotation, flexion, extension, abduction, adduction 5/5 Elbow flexion/extension, wrist flexion/extension 5/5 transportation director strength, finger flexion/extension, interosseus RLE: 5/5 to hip flexion, ankle dorsiflexion/plantarflexion LLE: 5/5 to hip flexion, ankle dorsiflexion/plantarflexion REFLEXES: 2/4 patellar DTR without asymmetry. no clonus SENSORY: Normal to touch, in upper and lower extremities without deficit or asymmetry No hemineglect COORD: no tremor, no dysmetria STATION: normal stance, no truncal ataxia Discharge Data Allergies Allergy/AdvReac Type Severity Reaction Status Date / Time No Known Allergies Allergy Mild Verified 03/02/22 07:52 Consultations 03/02/22 12:46 ED Decision to Admit Stat 03/02/22 15:40 Consult Neurology Routine Ordered Studies 03/02/22 10:50 CT angio head w con Stat CT angio neck with con Stat CT head/brain wo con Stat 03/03/22 00:00 MR brain wo con Routine Hospital Course (1) Expressive aphasia: Chidi is a 71-year-old male who presented with an episode of expressive aphasia after his aspirin and Plavix have been held for a lumbar facet injection. Symptoms had resolved after approximately [address] head, CTA head and neck, MRI were negative for acute findings. No history of A. fib, eTTE: EF 55 to 60%, no regional wall motion abnormality. Mild left atrial dilation, trace aortic regurg, last echo 02/03/2022 with EF 50-55% and somewhat technically difficult. Sinus rhythm during admission. LDL 55, adequately controlled. A1c slightly above goal at 7.1%. Patient was at his clinical baseline the next day, was discussed with neurology and no medication changes were recommended at this time. To do as outpatient: 1. Continue dual antiplatelet therapy 2. Follow-up to PCP, intensification of DM regimen with A1c goal less than 7% 3. Continue rosuvastatin. Dose increased not recommended given LDL 55 4. PCP follow-up TIA, expressive aphasia Patient had been off of Plavix for 1 week and aspirin for 24 hours prior to event for a lumbar facet injection All symptoms spontaneously resolved by time of assessment ASA/Plavix were restarted - TTE: EF 55 to 60%, no regional wall motion abnormality. Mild left atrial dilation, trace aortic regurg. LDL 55 A1c 7.1% MRI without acute findings, CT of the head, CTA head and neck without acute findings or clinically significant stenosis Former tobacco use in remission No evidence of infection High-sensitivity troponin normal, no acute EKG changes (2) TIA (transient ischemic attack): Today's events are concerning for TIA. See above. (3) Altered mental status: 2nd to #2. resolved. back to baseline. (4) Type 2 diabetes mellitus: A1c 7.1%, above goal Cont home lantus. Cont humalog pump and his Dexcom continuous glucose monitoring system but also check fingerstick blood sugars qid. He is adept at the operation of both devices and is awake/alert/oriented to manipulate the devices as needed. Victoza held during admission, recommend slight intensification of regimen as outpatient to achieve goal A1c of less than 7 (5) Hypertension: Allow some "permissiveness" until stroke work-up is complete. Lower metoprolol from BID to QDaily dosing. Blood pressure adequately controlled at discharge, home dosing resumed at discharge (6) CKD (chronic kidney disease) stage 3, GFR 30-59 ml/min: Stabe 3a, baseline CrCl 45-60. Creatinine (7) Chronic cough: Post-nasal drip/allergies? other? CXR free of infiltrates today. (8) REED (obstructive sleep apnea): May use CPAP from home. (9) Morbid obesity: BMI 40.5 (10) Lumbar facet joint syndrome: s/p L5/S1 injection today with local anesthetic only (no steroid). I do not believe that the injection contributed in any fashion to his presentation. Admitting provider discussed with pain management, okay to resume aspirin/Plavix during admission (11) CAD, multiple vessel: no evidence of ACS at this time. no ischemic symptoms. he did have an echo in early January as an outpatient but the window views were poor. in light of #1 repeat echo ordered, final read pending resume asa/plavix tonight. cont ranexa. cont metoprolol succinate but lower to once daily dosing while performing his CVA w/u. cont statin agent. If it is noted, troponin normal No dysrhythmia on telemetry (12) Hyperlipidemia: As noted (13) Ischemic cardiomyopathy: As noted Total Time Total Time Spent Total Time Spent (In Minutes): Time spend day of discharge 45 minutes including direct patient care, documentation, review of labs and images, and coordination of care. Discharge Plan Discharge Items Patient Disposition: Home - Self-Care Reason For Visit: TIA Discharge Diagnosis: TIA Activity: Resume your previous activity Non-emergency contact: Primary Care Provider Call non-emergency contact if: you have any medication questions, your symptoms worsen and your pain is not controlled Follow-up/Referrals: Brittni Earl PA-C [Physician Inbound [employer]redient Logistics Specialist] - 03/23/22 11:00 am (Please follow up with Brittni Earl PA-C on Monday03/23/22 at 11:00 am. Please arrive to the office at 10:45 am for your appointment. If you are unable to keep this appointment, please call the office to reschedule at [phone].) George Roman MD [Physician] - (Follow up appointment scheduled with Debbie Michael PA-C.) Howard Del Castillo MD [Primary Care Provider] - (Follow up appointment scheduled with Brittni Earl PA-C.) Debbie Michael PA-C [Physician Inbound Ingredient Logistics Specialist] - 03/17/22 8:30 am (Please follow up with MONALISA CruzC on 03/17/22 at 8:30 am. Please arrive to the office at 8:15 am for your appointment. If you are unable to keep this appointment, please call the office to reschedule at [phone].) Diet: Carb Consistent or DM2 and Heart Healthy Addtl Attending Provider Instructions: You are seen in the hospital for speech difficulty which was concerning for potential TIA (mini stroke). The CT of your head and neck did not show any acute abnormalities, a follow-up MRI did not show any evidence of stroke. Your symptoms were consistent with a mini stroke which does not leave any lasting damage or abnormalities on imaging studies. It is recommended that you continue taking both aspirin and Plavix at this time. Please continue taking your statin medication, no dose adjustment was recommended. Your hemoglobin A1c, a 3-month average of your blood sugar, was slightly high at 7.1%. Given your risk of future strokes, it is reasonable to target a goal of less than 7. Please discuss diabetes medication adjustments with your primary care provider at follow-up. You should be seen for a primary care follow-up within 2 to 3 weeks. An appointment is being scheduled for you as above, if you do not receive a call to confirm your appointment please contact their office at the number above. A neurology follow-up appointment is being scheduled for you for in 2 to 3 weeks If you develop any new or worsening symptoms including fever, chills, sweats, chest pain, chest pressure, difficulty breathing, uncontrolled nausea/vomiting, rash, wheezing, passing out or nearly passing out, bleeding, black/bloody bowel movements, or other new or concerning symptoms please call your primary care physician, or call 911 for re-evaluation in the emergency department if you are very concerned. Pending Studies at Discharge: No Stand-Alone Forms: My [employer], Smoking Cessation Medications and DC Order Prescriptions: Continued diazepam [Valium] 5 mg tablet 5 mg PO BID Qty: 2 RF: 0 (DME) Dexcom G6 Taxi [employer] Misc See Rx Instructions .ROUTE .MEDSUPPLY Qty: 1 RF: 0 Lantus Solostar U-100 Insulin 100 unit/mL (3 mL) insulin pen 20 unit SQ HS 90 Days Qty: 18 RF: 3 metoprolol succinate 100 mg tablet extended release 24 hr 100 mg PO BID Qty: 180 RF: 3 clopidogrel [Plavix] 75 mg tablet 75 mg PO HS Qty: 90 RF: 3 ranolazine 1,000 mg tablet extended release 12 hr 1,000 mg PO BID Qty: 180 RF: 3 insulin lispro [Humalog U-100 Insulin] 100 unit/mL solution 80 unit SQ CONT Qty: 80 RF: 3 (DME) V-GO 40 Device See Rx Instructions .ROUTE .MEDSUPPLY Qty: 3 RF: 0 aspirin 81 mg tablet,delayed release (DR/EC) 81 mg PO QPM Qty: 30 RF: 0 Eylea 2 mg/0.05 mL solution 2 mg intravitreal UD RF: 0 nitroglycerin 0.4 mg tablet, sublingual 0.4 mg SL UD PRN (Reason: Angina) RF: 0 cholecalciferol (vitamin D3) 5,000 unit capsule 5,000 units PO QAM RF: 0 rosuvastatin 40 mg tablet 40 mg PO HS Qty: 90 RF: 3 cyanocobalamin (vitamin B-12) 1,000 mcg tablet 1,000 mcg PO QAM RF: 0 tamsulosin 0.4 mg capsule 0.4 mg PO HS RF: 0 Victoza 3-Jose 0.6 mg/0.1 mL (18 mg/3 mL) pen injector 1.8 mg subcut QAM RF: 0 Discharge Orders: Discharge Order (Routine); Ordered 03/03/22 Ordered By: Costa Echevarria/Other Patient Handouts: What Is a TIA?, TIA Dc Admission Data Admit Date/Time: 03/02/22 13:51 Attending Provider: Costa Bowen Admit Provider: Joshua Baron Primary Care Provider: Howard Del Castillo V. Other Providers: George Roman ; Joshua Baron Other Interventions: Discharge Summary Assessment (RN) Last Done: 03/03/22 11:55 Coding Level of Care Code D/C DAY MANAGEMENT >30 MINS Diagnoses Expressive aphasia R47.01 TIA (transient ischemic attack) G45.9 Altered mental status R41.82 Type 2 diabetes mellitus E11.9 Hypertension I10 CKD (chronic kidney disease) stage 3, GFR 30-59 ml/min N18.30 Chronic cough R05 REED (obstructive sleep apnea) G47.33 Morbid obesity E66.01 Lumbar facet joint syndrome M47.816 CAD, multiple vessel I25.10 Hyperlipidemia E78.5 Ischemic cardiomyopathy I25.5
--- NOTE | 2022-03-03 15:35 | XCELERA ---
[id number]
== END 2022-03-03 12:34 | disposition home or self-care (01) ==
LOC: ED 10:49 → 2S 10:49 → SUATTDRO 13:51 → 2S 14:54

== ENCOUNTER 2022-11-15 23:10 | Observation (INO) ==
[2022-11-15] MEDS ORDERED: ONDANSETRON INJ 2 MG/ML 2 ML VIAL IV STA (23:49)
[2022-11-15] MEDS ORDERED: MoRPHine SULFATE 4 MG/ML 1 ML CARP\\VIAL IV STA (23:49)
--- NOTE | 2022-11-15 23:51 | Emergency Department Note ---
Impression & Plan Arm pain ADMIT ED Provider Note HPI: The patient is a 71-year-old male with history of insulin-dependent diabetes, CAD, presents emergency department with chief complaint of left shoulder pain and radicular pain for the past 2 days. Patient states the pain is mostly in his left shoulder, denies any traumatic injuries. Patient states the pain was bothering him tonight when he was trying to sleep and therefore he came to the ED for further assessment. On my initial evaluation here in the ED the patient is nontoxic-appearing, he is hemodynamically stable and in no acute distress ROS: - Per HPI *Outpatient medications and allergy history reviewed. *Pertinent external medical records reviewed. PE: General: Alert, morbidly obese HEENT: Normocephalic, trachea midline Eyes: Extraocular eye movement is intact, no scleral erythema Pulmonary: Clear to auscultation bilaterally, no wheezing Cardio: Regular rate and rhythm GI: Abdomen is soft to palpation : No suprapubic tenderness MSK: No evidence of trauma or malformation of the extremities, no edema Skin: No evidence of rash Neuro: Alert, no focal deficits Psychiatric: Cooperative residential monitor: (As interpreted by myself): - An order was placed for continuous cardiac monitoring - Patient was noted to be in sinus rhythm with a rate of 78 EKG: (As interpreted by myself): Rate: 82 Rhythm: Sinus Intervals: Within normal limits ST changes: No ST elevation Time: 2321 Interventions provided in ED: -IV morphine, IV Zofran Differential Diagnosis: Acute coronary syndrome, left shoulder sprain, cervical radiculopathy, rotator cuff injury, shoulder fracture, shoulder dislocation, amongst other potential pathologies. Medical Decision Making: Patient is a 71-year-old gentleman with history of coronary artery disease status post multiple stents, presents emergency department with atraumatic left arm pain. On arrival here to the ED the patient overall appears well. X-ray imaging was obtained that does not show any evidence of obvious bony pathology per my interpretation. Lab work was obtained and EKG obtained. EKG does not show any acute ischemic changes. Lab work does show a mildly elevated high- sensitivity troponin level at 22. On reassessment following IV morphine and IV Zofran the patient states he is feeling much better. Given the mild elevation in his troponin level in addition to atraumatic pain in the left shoulder, delta troponin was obtained and did roughly double. On my reassessment patient is resting comfortably in bed. States he continues to feel well. Unclear whether or not the patient's left shoulder discomfort could represent ACS with uptrending troponin, he was given aspirin. I recommended admission. Patient was in agreement. Case was then discussed with the on-call hospitalist, Dr. Jessica, and patient was placed for admission in stable condition. Consultants: Hospitalist, Dr. Jessica Disposition discussion held by myself with: Patient and at the bedside Diagnosis: 1. Left shoulder pain, acute, atraumatic 2. Elevated high-sensitivity troponin level in patient with history of coronary artery disease Disposition: Admission Aidan Lacy DO Emergency Medicine Past Med/Surg History Medical History AMS (altered mental status) Angina pectoris Ascending aortic aneurysm CAD, multiple vessel Cardiac murmur Chronic back pain Chronic low back pain Claudication of both lower extremities Decreased cardiac ejection fraction Diabetes mellitus, type 2 Dilated aortic root Hyperlipidemia Hypertension Hypokalemia Ischemic cardiomyopathy Kidney stones Lumbar facet joint syndrome Macular degeneration Myocardial Infarction Sleep apnea Somatic dysfunction of lower extremities Surgical History History of appendectomy History of arthroscopy History of cardiac cath History of colonoscopy History of eye surgery History of heart artery stent History of hernia repair History of lithotripsy History of wisdom tooth extraction Family History Grandmother (Maternal) Family history of diabetes mellitus Brother Family history of diabetes mellitus Sister Family history of diabetes mellitus Mother Family hx of colon cancer Stroke Father No problems noted. Other Cancer Diabetes Kidney disease No family history of adverse response to anesthesia Denies family history of Tuberculosis Allergies Emphysema of lung Lung disease Asthma Social History Smoking Status: Never smoker Tobacco Type: Cigarettes Age Quit Using Tobacco: 26; packs per day: 1; Second Hand Exposure: No; Hx Alcohol Use: Yes Alcohol type: beer and wine Alcohol Intake Frequency: Monthly or Less Alcohol Intake Frequency Comment: patient averages 1-2 beers per week. 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 How many Children do You have: 3 Feels Safe at Home: Yes Childhood Exposure to Second-Hand Smoke: Yes Dental Care, Regularly: No Physical Activity Frequency: Does not Exercise Seatbelt Use: always Sunscreen Use: No Assistive Devices: Other Allergies Allergies Allergy/AdvReac Type Severity Reaction Status Date / Time No Known Allergies Allergy Mild Verified 11/16/22 00:15 Home Meds Home Medications Medication Instructions Recorded Confirmed aflibercept 2 mg/0.05 mL 2 mg intravitreal UD 04/10/19 11/16/22 intravitreal solution for injection (Eylea) aspirin 81 mg tablet,delayed 81 mg PO QPM #30 tabs 04/10/19 11/16/22 release cholecalciferol (vitamin D3) 125 5,000 units PO QAM 04/10/19 11/16/22 mcg (5,000 unit) capsule cyanocobalamin (vitamin B-12) 1,000 mcg PO QAM 07/04/19 11/16/22 1,000 mcg tablet insulin lispro 100 unit/mL 0 unit continuous subcutaneous 11/16/22 11/16/22 subcutaneous solution (Humalog infusion CONTINOUS U-100 Insulin) Previous Rx's Medication Instructions Recorded Dexcom G6 Airborne Sensor Specialist (blood-glucose #1 ea 12/26/19 meter,continuous) tamsulosin 0.4 mg capsule (Flomax) 0.4 mg PO DAILY #30 caps 06/13/22 V-GO 40 (sub-q insulin device, 40 #90 ea 11/07/22 unit) clopidogrel 75 mg tablet (Plavix) 75 mg PO HS #90 tabs 11/07/22 insulin glargine 100 unit/mL (3 20 unit (0.2 mL) subcut HS 90 days 11/07/22 mL) subcutaneous pen (Lantus #30 mL Solostar U-100 Insulin) liraglutide 0.6 mg/0.1 mL (18 mg/3 1.8 mg (0.3 mL) subcut QAM #27 mL 11/07/22 mL) subcutaneous pen injector (RECOMBINETICS 3-Jose) metoprolol succinate 100 mg 100 mg PO BID #180 tabs 11/07/22 tablet,extended release 24 hr nitroglycerin 0.4 mg sublingual 0.4 mg sublingual UD PRN Angina 11/07/22 tablet #25 tabs ranolazine 1,000 mg 1,000 mg PO BID #180 tabs 11/07/22 tablet,extended release,12 hr rosuvastatin 40 mg tablet 40 mg PO HS #90 tabs 11/07/22 Results & Data (ED) Vital Signs Vital Signs - 24 hr 11/15/22 23:11 11/16/22 00:08 11/16/22 00:40 Temperature 36.2 C L Temperature Source Temporal Artery Scan Pulse Rate 84 75 Pulse Rate [Finger] Respiratory Rate 18 Respiratory Effort / Characteristics Non-Labored Respiratory Depth Normal Blood Pressure 135/84 Blood Pressure [Right Arm] Blood Pressure Mean 101 Blood Pressure Mean [Right Arm] Pulse Oximetry 96 93 Oxygen Delivery Method Room Air Room Air Sepsis Recent Fever Within 48 Hours No Sepsis New/Unexplained Change in Mental Status No Sepsis Action Taken by Nursing No Action Required 11/16/22 01:30 11/16/22 02:30 Temperature Temperature Source Pulse Rate 71 Pulse Rate [Finger] 72 Respiratory Rate 18 16 Respiratory Effort / Characteristics Respiratory Depth Blood Pressure 116/70 Blood Pressure [Right Arm] 132/69 Blood Pressure Mean 85 Blood Pressure Mean [Right Arm] 90 Pulse Oximetry 90 96 Oxygen Delivery Method Room Air Sepsis Recent Fever Within 48 Hours Sepsis New/Unexplained Change in Mental Status Sepsis Action Taken by Nursing Laboratory Data 11/16/22 00:09 11/16/22 00:09 Lab Results 11/16/22 11/16/22 11/16/22 Range/Units 00:09 00:09 01:05 WBC 8.72 (4.8-10.8) K/ul RBC 4.94 (4.70-6.10) M/uL Hgb 15.4 (14.0-18.0) g/dl Hct 45.0 (42.0-52.0) % MCV 91.1 (80.0-100.0) fL MCH 31.2 (25.0-34.0) pg MCHC 34.2 (32.0-36.0) g/dL RDW Std Deviation 41.7 (36.4-46.3) fL RDW Coeff of Damián 12.7 (11.5-14.5) % Plt Count 207 (130-400) K/uL MPV 9.9 (9.4-12.4) fL Immature Gran % (Auto) 0.3 % Neut % (Auto) 49.9 % Lymph % (Auto) 36.2 % Fannin % (Auto) 11.0 % Eos % (Auto) 1.8 % Baso % (Auto) 0.8 % Neut # (Auto) 4.34 (1.40-6.50) K/uL Lymph # (Auto) 3.16 (1.2-3.4) K/uL Fannin # (Auto) 0.96 H (0.11-0.59) K/uL Eos # (Auto) 0.16 (0-0.50) K/uL Baso # (Auto) 0.07 (0-0.2) K/uL Immature Gran # (Auto) 0.03 (0.01-0.20) K/uL Sodium 140 (136-145) mmol/L Potassium 4.2 (3.5-5.1) mmol/L Chloride 110 H (98-107) mmol/L Carbon Dioxide 23 (21-32) mmol/L Anion Gap 7 (3-11) BUN 27 H (6-23) mg/dl Creatinine 1.38 (0.6-1.4) mg/dl Est Cr Clr Drug Dosing 67.3 ml/min Est GFR ( Amer) 59.6 ml/min Est GFR (Non-Af Amer) 51.4 ml/min BUN/Creatinine Ratio 19.6 (10-20) Glucose 236 H (70-99(Fasting)) mg/dl Calcium 8.7 (8.5-10.1) mg/dl Total Bilirubin 0.4 (0.2-1.0) mg/dl AST 18 (13-39) U/L ALT 14 (7-52) U/L Alkaline Phosphatase 49 (34-104) U/L Troponin I High Sens 22.0 H 41.0 H D (0-20) pg/ml Total Protein 6.7 (6.0-8.3) gm/dl Albumin 3.8 (3.4-5.0) gm/dl Globulin 2.9 (2.5-4.0) gm/dl Albumin/Globulin Ratio 1.3 (0.9-2) Lipase 75 (11-82) U/L SARS-CoV-2, RNA, NAAT (NEGATIVE) 11/16/22 Range/Units 02:26 WBC (4.8-10.8) K/ul RBC (4.70-6.10) M/uL Hgb (14.0-18.0) g/dl Hct (42.0-52.0) % MCV (80.0-100.0) fL MCH (25.0-34.0) pg MCHC (32.0-36.0) g/dL RDW Std Deviation (36.4-46.3) fL RDW Coeff of Damián (11.5-14.5) % Plt Count (130-400) K/uL MPV (9.4-12.4) fL Immature Gran % (Auto) % Neut % (Auto) % Lymph % (Auto) % Fannin % (Auto) % Eos % (Auto) % Baso % (Auto) % Neut # (Auto) (1.40-6.50) K/uL Lymph # (Auto) (1.2-3.4) K/uL Fannin # (Auto) (0.11-0.59) K/uL Eos # (Auto) (0-0.50) K/uL Baso # (Auto) (0-0.2) K/uL Immature Gran # (Auto) (0.01-0.20) K/uL Sodium (136-145) mmol/L Potassium (3.5-5.1) mmol/L Chloride (98-107) mmol/L Carbon Dioxide (21-32) mmol/L Anion Gap (3-11) BUN (6-23) mg/dl Creatinine (0.6-1.4) mg/dl Est Cr Clr Drug Dosing ml/min Est GFR ( Amer) ml/min Est GFR (Non-Af Amer) ml/min BUN/Creatinine Ratio (10-20) Glucose (70-99(Fasting)) mg/dl Calcium (8.5-10.1) mg/dl Total Bilirubin (0.2-1.0) mg/dl AST (13-39) U/L ALT (7-52) U/L Alkaline Phosphatase (34-104) U/L Troponin I High Sens (0-20) pg/ml Total Protein (6.0-8.3) gm/dl Albumin (3.4-5.0) gm/dl Globulin (2.5-4.0) gm/dl Albumin/Globulin Ratio (0.9-2) Lipase (11-82) U/L SARS-CoV-2, RNA, NAAT NEGATIVE (NEGATIVE) Administered Medications Discontinued Medications Aspirin (Aspirin Chew 324 Mg) 324 mg PO NOW STA Stop: 11/16/22 02:18 Last Admin: 11/16/22 02:23 Dose: 324 mg Documented By: ABDULKADIR Morphine Sulfate (Morphine Sulfate 4 Mg/Ml 1 Ml Carp\Vial) 4 mg IV NOW STA Stop: 11/15/22 23:50 Last Admin: 11/16/22 00:03 Dose: 4 mg Documented By: ABDULKADIR Ondansetron HCl (Ondansetron Inj 2 Mg/Ml 2 Ml Vial) 4 mg IV NOW STA Stop: 11/15/22 23:50 Last Admin: 11/16/22 00:03 Dose: 4 mg Documented By: ABDULKADIR Discharge Plan Visit Data Chief Complaint: Arm Pain Stated Complaint: L SHOULDER PAIN DOWN ARM,SOB ED Provider: Aidan Lacy Discharge Problem: Arm pain Forms Stand Alone Forms: My [facility] [email or web address] Prescriptions Prescriptions: No Action (DME) Dexcom G6 Airborne Sensor Specialist Misc See Rx Instructions .ROUTE .MEDSUPPLY Qty: 1 0RF Rx Instructions: As directed tamsulosin [Flomax] 0.4 mg capsule 0.4 mg PO DAILY Qty: 30 2RF clopidogrel [Plavix] 75 mg tablet 75 mg PO HS Qty: 90 3RF metoprolol succinate 100 mg tablet extended release 24 hr 100 mg PO BID Qty: 180 3RF nitroglycerin 0.4 mg tablet, sublingual 0.4 mg SL UD PRN (Reason: Angina) Qty: 25 5RF Rx Instructions: 0.4 mg SL VERY 5 MINUTES FOR UP TO 3 DOSES PRN FOR CHEST PAIN. CALL 911 IF PAIN PERSISTS; ranolazine 1,000 mg tablet extended release 12 hr 1,000 mg PO BID Qty: 180 3RF rosuvastatin 40 mg tablet 40 mg PO HS Qty: 90 3RF insulin glargine [Lantus Solostar U-100 Insulin] 100 unit/mL (3 mL) insulin pen 20 unit SQ HS 90 Days Qty: 30 1RF Victoza 3-Jose 0.6 mg/0.1 mL (18 mg/3 mL) pen injector 1.8 mg subcut QAM Qty: 27 1RF Hold Instructions: pt condition change (DME) V-GO 40 Device See Rx Instructions .ROUTE .MEDSUPPLY Qty: 90 1RF Rx Instructions: use 1 daily aspirin 81 mg tablet,delayed release (DR/EC) 81 mg PO QPM Qty: 30 Eylea 2 mg/0.05 mL solution 2 mg intravitreal UD Patient Comments: 2 mg intravitreal Daily 5-6 weeks ; Rx Instructions: 2 mg intravitreal once every 5-6 weeks ; cholecalciferol (vitamin D3) 5,000 unit capsule 5,000 units PO QAM cyanocobalamin (vitamin B-12) 1,000 mcg tablet 1,000 mcg PO QAM insulin lispro [Humalog U-100 Insulin] 100 unit/mL solution 0 unit continuous subcutaneous infusion CONTINOUS Rx Instructions: via V-Go pump Referrals Referrals: Howard Del Castillo MD [Primary Care Provider] -
[2022-11-16 00:33] LABS: Basophils # (auto) 0.07 K/uL (0-0.2); Basophils % (auto) 0.8 %; Eosinophils # (auto) 0.16 K/uL (0-0.50); Eosinophils % (auto) 1.8 %; Hemoglobin 15.4 g/dl (14.0-18.0); Immature Granulocytes # (auto) 0.03 K/uL (0.01-0.20); Immature Granulocytes % (auto) 0.3 %; Lymphocytes # (auto) 3.16 K/uL (1.2-3.4); Lymphocytes % (auto) 36.2 %; Mean Corpuscular Hemoglobin 31.2 pg (25.0-34.0); Mean Corpuscular Hgb Conc 34.2 g/dL (32.0-36.0); Mean Corpuscular Volume 91.1 fL (80.0-100.0); Mean Platelet Volume 9.9 fL (9.4-12.4); Monocytes # (auto) 0.96 K/uL (0.11-0.59); Neutrophils # (auto) 4.34 K/uL (1.40-6.50); Neutrophils % (auto) 49.9 %; Platelet Count 207 K/uL (130-400); RDW Coefficient of Variation 12.7 % (11.5-14.5); RDW Standard Deviation 41.7 fL (36.4-46.3); Red Blood Count 4.94 M/uL (4.70-6.10); White Blood Count 8.72 K/ul (4.8-10.8)
[2022-11-16 00:43] LABS: Albumin Globulin Ratio 1.3 (0.9-2); Albumin Level 3.8 gm/dl (3.4-5.0); BUN Creatinine Ratio 19.6 (10-20); Bilirubin,Total 0.4 mg/dl (0.2-1.0); Calcium 8.7 mg/dl (8.5-10.1); Creatinine Clr Calc Pharmacy 67.3 ml/min; Est GFR (African American) 59.6 ml/min; Est GFR (Non-African American) 51.4 ml/min; Globulin 2.9 gm/dl (2.5-4.0); Potassium 4.2 mmol/L (3.5-5.1); Total Protein 6.7 gm/dl (6.0-8.3)
[2022-11-16] MEDS ORDERED: ASPIRIN CHEW 324 MG PO STA (02:17)
--- NOTE | 2022-11-16 02:59 | History & Physical Report ---
Date of Service November 16, 2022 Assessment & Plan (1) Arm pain: Plan: Most likely musculoskeletal. Patient's initial left elbow --> forearm pain with numbness of 4th and 5th digits most likely ulnar neuropathy. His muscle strength and coordination are intact. Patient may consider EMG and ultrasound outpatient. (2) Elevated troponin: Plan: Patient with mild elevation in troponin 22 --> 41 over an hour. He denies chest pain but does report left shoulder pain. Left shoulder pain is reproducible - most likely musculoskeletal as well. He reports stable DELANEY with no new anginal symptoms. EKG with no obvious ischemic changes. However, given patient's complex cardiac history will place on observation with telemetry monitoring -Trend troponin -Cardiology Consultation appreciated -Continue cardiac medications (3) CAD, multiple vessel: Plan: Patient with history of CAD with stents in place. He follows with cardiology -Monitor troponin -Continue ASA, Plavix, Crestor -Continue Metoprolol 100mg po BID -Continue Ranolazine 1000 mg po BID (4) Type 2 diabetes mellitus: Plan: Chronic. Fairly well controlled with last HgbA1C on 09/20/22 = 7.4 -Patient may use own insulin pump -Continue to monitor (5) Ischemic cardiomyopathy: Plan: Echocardiogram from 02/2022 with mildly dilated LV with normal systolic function - EF 55-60%. No regional WMA. Mild left atrial dilation and trace aortic regurgitation. Patient appears well compensated with no evidence of volume overload (6) Hypertension: Plan: Blood pressure well controlled -Continue Metoprolol -Monitor (7) Hyperlipidemia: Plan: Chronic -Continue Crestor 40mg po qHS (8) REED (obstructive sleep apnea): Plan: Chronic. Patient reports compliance with his CPAP at night -Continue CPAP qHS F/E/N - Heplock. Electrolytes WNL. CC/AHA diet as tolerated Ppx - Lovenox Code - Full Dispo - Observation to medical with telemetry History of Present Illness Chief Complaint: left shoulder pain, SOB Primary Care Provider: Howard Del Castillo MD Chidi Salazar is a pleasant 71yo male with history of multivessel CAD s/p multiple stents, ischemic cardiomyopathy, HTN, HLP, DM and dilated aortic root and ascending aorta. Patient presents this evening complaining of left shoulder pain. He reports occasional left forearm pain that starts in the lateral elbow and radiates down the forearm and into the 4th and 5th digits of the left hand. He also has occ asional numbness of the left 4th and 5th fingers. This evening he had severe pain in the left shoulder with radiation down the left arm with associated numbness of the left 4th and 5th fingers. Patient denies trauma. No chest pain, no worsening SOB, no palpitations. He denies abdominal pain, nausea, vomiting, diarrhea or constipation. Patient has chronic dyspnea with exertion - becomes short of breath after walking approximately 100 feet. He denies exertional chest pain. Patient is compliant with his cardiac medication regimen. He follows routinely with Cardiology. Denies edema, orthopnea, weight gain. No additional complaints at this time. In the ER he is afebrile, HD stable, NAD. Troponin increased from 22 -->41 after appx 1 hour ER Course: ASA 324mg Zofran 4mg IV Morphine 4mg IV Allergies Allergy/AdvReac Type Severity Reaction Status Date / Time No Known Allergies Allergy Mild Verified 11/16/22 00:15 Home Medications Medication Instructions Recorded Confirmed Type aflibercept 2 mg/0.05 mL 2 mg intravitreal UD 04/10/19 11/16/22 History intravitreal solution for injection (Eylea) aspirin 81 mg tablet,delayed 81 mg PO QPM #30 tabs 04/10/19 11/16/22 History release cholecalciferol (vitamin D3) 125 5,000 units PO QAM 04/10/19 11/16/22 History mcg (5,000 unit) capsule cyanocobalamin (vitamin B-12) 1,000 mcg PO QAM 07/04/19 11/16/22 History 1,000 mcg tablet Dexcom G[employer] (blood-glucose #1 ea 12/26/19 10/11/22 Rx meter,continuous) tamsulosin 0.4 mg capsule (Flomax) 0.4 mg PO DAILY #30 caps 06/13/22 11/16/22 Rx V-GO 40 (sub-q insulin device, 40 #90 ea 11/07/22 Rx unit) clopidogrel 75 mg tablet (Plavix) 75 mg PO HS #90 tabs 11/07/22 11/16/22 Rx insulin glargine 100 unit/mL (3 20 unit (0.2 mL) subcut HS 90 days 11/07/22 11/16/22 Rx mL) subcutaneous pen (Lantus #30 mL Solostar U-100 Insulin) liraglutide 0.6 mg/0.1 mL (18 mg/3 1.8 mg (0.3 mL) subcut QAM #27 mL 11/07/22 11/16/22 Rx mL) subcutaneous pen injector (Victoza 3-Jose) metoprolol succinate 100 mg 100 mg PO BID #180 tabs 11/07/22 11/16/22 Rx tablet,extended release 24 hr nitroglycerin 0.4 mg sublingual 0.4 mg sublingual UD PRN Angina 11/07/22 11/16/22 Rx tablet #25 tabs ranolazine 1,000 mg 1,000 mg PO BID #180 tabs 11/07/22 11/16/22 Rx tablet,extended release,12 hr rosuvastatin 40 mg tablet 40 mg PO HS #90 tabs 11/07/22 11/16/22 Rx insulin lispro 100 unit/mL 0 unit continuous subcutaneous 11/16/22 11/16/22 History subcutaneous solution (Humalog infusion CONTINOUS U-100 Insulin) Past Med/Surg History Medical History (Updated 11/16/22 @ 03:57 by Quyen Jessica DO) AMS (altered mental status) Angina pectoris Ascending aortic aneurysm 4.4cm - CTA chest, 2020. CAD, multiple vessel Cardiac murmur Chronic low back pain Claudication of both lower extremities Decreased cardiac ejection fraction 40% > yearly Echo Diabetes mellitus, type 2 Dilated aortic root Expressive aphasia Hyperlipidemia Hypertension Hypokalemia Ischemic cardiomyopathy Kidney stones Lumbar facet joint syndrome Macular degeneration Myocardial Infarction unsure when--follows with Dr. Hart Sleep apnea cpap Somatic dysfunction of lower extremities TIA (transient ischemic attack) Surgical History History of appendectomy History of arthroscopy right knee History of cardiac cath 06/2010 @ [facility] 09/2010 @ [facility] 2017@ [facility] > 2 stents total History of colonoscopy History of eye surgery left "laser for macular degenration" History of heart artery stent 06/2010 x1 stent 09/2010 x1 stent History of hernia repair History of lithotripsy History of wisdom tooth extraction Family History Grandmother (Maternal) Family history of diabetes mellitus Brother Family history of diabetes mellitus Sister Family history of diabetes mellitus Mother , in her early 80s Family hx of colon cancer Stroke Father , the patient knows little to nothing of his father or his father's medical history No problems noted. Other Cancer Diabetes Kidney disease No family history of adverse response to anesthesia Denies family history of Tuberculosis Allergies Emphysema of lung Lung disease Asthma Social History Smoking Status: Never smoker Tobacco Type: Cigarettes Age Quit Using Tobacco: 26; packs per day: 1; Second Hand Exposure: No; Hx Alcohol Use: Yes Alcohol type: beer and wine Alcohol Intake Frequency: Monthly or Less Alcohol Intake Frequency Comment: patient averages 1-2 beers per week. 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 How many Children do You have: 3 Feels Safe at Home: Yes Childhood Exposure to Second-Hand Smoke: Yes Dental Care, Regularly: No Physical Activity Frequency: Does not Exercise Seatbelt Use: always Sunscreen Use: No Assistive Devices: Other Review of Systems Review of Systems: All systems reviewed & are unremarkable except as noted in HPI & below Physical Exam Physical Exam: General: patient resting comfortably, NAD, non-toxic in appearance, AA&O x 4 Skin: warm, dry, intact, no rashes or lesions HEENT: NC/AT, PERRL, EOMI, anicteric sclera, conjunctiva without injection, external ear normal to inspection and nontender, nares patent, moist mucus membranes, dentition intact, no oropharyngeal lesions, neck supple, trachea midline, no LAD, no thyromegaly, no JVD Heart: +S1/S2, regular, no m/r/g, no reproducible chest wall pain Tenderness with palpation of left shoulder Lungs: equal air entry bilaterally, no rales/rhonchi/wheezes Abd: +BS, soft, NT/ND, no masses/organomegaly/ascites Ext: warm, 2+ pulses in UE/LE bilaterally, no clubbing/cyanosis or edema Neuro: nonfocal, patient AA&O x 4, speech intact, no facial droop, moving all extremities on command with equal strength 5/5 Results & Data Results & Data Vital Signs (Past 12 Hours) Vital Signs Temp Pulse Pulse Resp BP BP Pulse Ox 11/16/22 02:30 71 16 116/70 96 11/16/22 01:30 72 18 132/69 90 11/16/22 00:40 75 11/16/22 00:08 93 11/15/22 23:11 36.2 C L 84 18 135/84 96 O2 Del Method 11/16/22 02:30 11/16/22 01:30 Room Air 11/16/22 00:40 11/16/22 00:08 Room Air 11/15/22 23:11 Room Air Laboratory Results Laboratory Results WBC 8.72 K/ul (4.8-10.8) 11/16/22 00:09 RBC 4.94 M/uL (4.70-6.10) 11/16/22 00:09 Hgb 15.4 g/dl (14.0-18.0) 11/16/22 00:09 Hct 45.0 % (42.0-52.0) 11/16/22 00:09 MCV 91.1 fL (80.0-100.0) 11/16/22 00:09 MCH 31.2 pg (25.0-34.0) 11/16/22 00:09 MCHC 34.2 g/dL (32.0-36.0) 11/16/22 00:09 RDW Std Deviation 41.7 fL (36.4-46.3) 11/16/22 00:09 RDW Coeff of Damián 12.7 % (11.5-14.5) 11/16/22 00:09 Plt Count 207 K/uL (130-400) 11/16/22 00:09 MPV 9.9 fL (9.4-12.4) 11/16/22 00:09 Immature Gran % (Auto) 0.3 % 11/16/22 00:09 Neut % (Auto) 49.9 % 11/16/22 00:09 Lymph % (Auto) 36.2 % 11/16/22 00:09 [place] % (Auto) 11.0 % 11/16/22 00:09 Eos % (Auto) 1.8 % 11/16/22 00:09 Baso % (Auto) 0.8 % 11/16/22 00:09 Neut # (Auto) 4.34 K/uL (1.40-6.50) 11/16/22 00:09 Lymph # (Auto) 3.16 K/uL (1.2-3.4) 11/16/22 00:09 [place] # (Auto) 0.96 K/uL (0.11-0.59) H 11/16/22 00:09 Eos # (Auto) 0.16 K/uL (0-0.50) 11/16/22 00:09 Baso # (Auto) 0.07 K/uL (0-0.2) 11/16/22 00:09 Immature Gran # (Auto) 0.03 K/uL (0.01-0.20) 11/16/22 00:09 Sodium 140 mmol/L (136-145) 11/16/22 00:09 Potassium 4.2 mmol/L (3.5-5.1) 11/16/22 00:09 Chloride 110 mmol/L (98-107) H 11/16/22 00:09 Carbon Dioxide 23 mmol/L (21-32) 11/16/22 00:09 Anion Gap 7 (3-11) 11/16/22 00:09 BUN 27 mg/dl (6-23) H 11/16/22 00:09 Creatinine 1.38 mg/dl (0.6-1.4) 11/16/22 00:09 Est Cr Clr Drug Dosing 67.3 ml/min 11/16/22 00:09 Est GFR ( Amer) 59.6 ml/min 11/16/22 00:09 Est GFR (Non-Af Amer) 51.4 ml/min 11/16/22 00:09 BUN/Creatinine Ratio 19.6 (10-20) 11/16/22 00:09 Glucose 236 mg/dl (70-99(Fasting)) H 11/16/22 00:09 Calcium 8.7 mg/dl (8.5-10.1) 11/16/22 00:09 Total Bilirubin 0.4 mg/dl (0.2-1.0) 11/16/22 00:09 AST 18 U/L (13-39) 11/16/22 00:09 ALT 14 U/L (7-52) 11/16/22 00:09 Alkaline Phosphatase 49 U/L (34-104) 11/16/22 00:09 Troponin I High Sens 41.0 pg/ml (0-20) H D 11/16/22 01:05 Total Protein 6.7 gm/dl (6.0-8.3) 11/16/22 00:09 Albumin 3.8 gm/dl (3.4-5.0) 11/16/22 00:09 Globulin 2.9 gm/dl (2.5-4.0) 11/16/22 00:09 Albumin/Globulin Ratio 1.3 (0.9-2) 11/16/22 00:09 Lipase 75 U/L (11-82) 11/16/22 00:09 SARS-CoV-2, RNA, NAAT NEGATIVE (NEGATIVE) 11/16/22 02:26 ECG Additional Comments: EKG wtih NSR at 82, normal axis, FJ=582, QRS=94, IKs=213, no acute ischemic changes PG Care Time/CCT Total # of Minutes Spent Total Time Spent with Patient: Total time spent is greater than 50% in coordination of care (as documented) at patient's floor/unit and/or counseling patient: Coding Level of Care Code 37647 INT INP/OBS CARE 3/75MIN Diagnoses Arm pain M79.602 Laterality: left Elevated troponin R77.8 CAD, multiple vessel I25.10 Type 2 diabetes mellitus E11.9 Ischemic cardiomyopathy I25.5 Hypertension I10 Hyperlipidemia E78.5 REED (obstructive sleep apnea) G47.33 (1) Arm pain Laterality: left Qualified Code(s): M79.602 - Pain in left arm
[2022-11-16] MEDS ORDERED: ACETAMINOPHEN 325 MG TAB PO PRN (03:50)
[2022-11-16] MEDS ORDERED: DEXTROSE 50% 50 ML SYRINGE IV PRN (03:50)
[2022-11-16] MEDS ORDERED: CARBOHYDRATES FOR HYPOGLYCEMIA PO PRN (03:50)
[2022-11-16] MEDS ORDERED: ONDANSETRON INJ 2 MG/ML 2 ML VIAL IV PRN (03:50)
[2022-11-16] MEDS ORDERED: NON-FORMULARY MEDICATION (Insulin Lispro [Humalog U-100 Insulin] 100 unit/mL solution) continuous subcutaneous infusion SCH (03:50)
[2022-11-16] MEDS ORDERED: GLUCOSE 40% GEL 15 GM TUBE PO PRN (03:50)
[2022-11-16] MEDS ORDERED: GLUCOSE 10 TAB/TUBE PO PRN (03:50)
[2022-11-16] MEDS ORDERED: GLUCAGON FOR INJ 1 MG VIAL SQ PRN (03:50)
[2022-11-16] MEDS ORDERED: INSULIN ASPART 100 UNITS/ML VIAL SC PRN (04:00)
[2022-11-16 05:04] LABS: Magnesium 1.9 mg/dl (1.7-2.4)
--- NOTE | 2022-11-16 08:02 | Hospitalist Progress Note ---
Date of Service November 16, 2022 Assessment & Plan (1) Elevated troponin: Plan: acute issue, undetermined significance, cardiology does not feel this is cardiogenic arm pain associated is reproducible, improved with ultram ordered prn Hstrop 22-41-100- 275, repeat in the am, EKG with no obvious ischemic changes. on ASA/Plavix, metoprolol, statin, ranexa, is insulin requiring diabetic Chronic Coronary Artery disease, question if unstable -Last outpt Cardiology note 09/02/22 CAD status post RCA PCI x2: No angina. He has significant CAD involving multiple coronary arteries. He was deemed not to be an interventional candidate by an fish egg packer in [place] in February of 2017. He was deemed not a CT surgery candidate for revascularization by [facility], doctors Sp and Seng, in February of 2017. Medical therapy has been recommended. Has a history of chronic/stable angina that has resolved with titration of antianginal medication (most recently Ranexa). Continue metoprolol succinate 100 mg twice daily. Has not tolerated nitrate therapy due to headaches. Continue Ranexa 1000 mg twice daily. Could consider addition of calcium channel gulshan if further antianginal medical therapy is warranted. Continue aspirin 81 mg daily. He was also placed on Plavix by interventional Cardiology in February of 2017 and is tolerating it well. Continue statin therapy. Call 911 for angina that does not resolve within 5 minutes of nitroglycerin Echocardiogram from 02/2022 with mildly dilated LV with normal systolic function - EF 55-60%. No regional WMA. Mild left atrial dilation and trace aortic regurgitation. Ct chest to eval aortic arch, No thoracic aortic dissection. No change in mild aneurysmal dilatation of the ascending aorta, measuring 4.4 cm, since CT of January 07, 2021. (2) Arm pain: Plan: Acute, undetermined significance Most likely musculoskeletal. Patient's initial left elbow --> forearm pain with numbness of 4th and 5th digits most likely ulnar neuropathy. His muscle strength and coordination are intact. Patient may consider EMG and ultrasound outpatient. (3) Type 2 diabetes mellitus: Plan: Chronic. stable Fairly well controlled with last HgbA1C on 09/20/22 = 7.4 -Patient may use own insulin pump -Continue to monitor (4) Hypertension: Plan: Chronic and stable (5) REED (obstructive sleep apnea): Plan: Chronic. Patient reports compliance with his CPAP at night -Continue CPAP qHS Ppx - Lovenox Code - Full Admission and Anticipated Discharge Date Admission Date: November 16, 2022 Subjective pt is feeling improved still with some shoulder pain, troponin are slightly increasing, cardiology does not feel this is cardiogenic Pt presents as it maybe arthritic Physical Exam Physical Exam: awake, mild distress, cardiac is regular lungs are clear shoulder examines as mild rotator cuff tenderness Results & Data Results & Data Vital Signs (Past 12 Hours) Vital Signs Temp Pulse Pulse Resp BP BP Pulse Ox 11/16/22 07:00 80 17 96 11/16/22 06:00 75 15 97 11/16/22 06:00 123/62 11/16/22 05:00 72 14 96 11/16/22 04:28 138/72 11/16/22 04:28 89 20 98 11/16/22 04:00 69 23 96 11/16/22 04:00 130/70 11/16/22 03:31 69 18 97 11/16/22 03:31 122/60 11/16/22 03:01 72 14 95 11/16/22 03:01 129/70 11/16/22 03:00 70 17 95 11/16/22 02:30 71 16 116/70 96 11/16/22 01:30 72 18 132/69 90 11/16/22 00:40 75 11/16/22 00:08 93 11/15/22 23:11 97.2 F L 84 18 135/84 96 O2 Del Method 11/16/22 07:00 11/16/22 06:00 11/16/22 06:00 11/16/22 05:00 11/16/22 04:28 11/16/22 04:28 11/16/22 04:00 11/16/22 04:00 11/16/22 03:31 11/16/22 03:31 11/16/22 03:01 11/16/22 03:01 11/16/22 03:00 11/16/22 02:30 11/16/22 01:30 Room Air 11/16/22 00:40 11/16/22 00:08 Room Air 11/15/22 23:11 Room Air PG Care Time/CCT Total # of Minutes Spent Total Time Spent with Patient: Total time spent is greater than 50% in coordination of care (as documented) at patient's floor/unit and/or counseling patient: Coding Level of Care Code 70366 SUB INP/OBS CARE 235MIN Diagnoses Elevated troponin R77.8 Arm pain M79.602 Laterality: left Type 2 diabetes mellitus E11.9 Hypertension I10 REED (obstructive sleep apnea) G47.33 (2) Arm pain Laterality: left Qualified Code(s): M79.602 - Pain in left arm
--- NOTE | 2022-11-16 08:24 | XRay Report ---
LEFT SHOULDER 3 VIEWS CLINICAL HISTORY: Left shoulder pain. FINDINGS: 3 views of the left shoulder are obtained. No prior studies are available for comparison at the time of dictation. The skeletal structures are osteopenic. There is no radiographic evidence of fracture or dislocation. Mild degenerative change is seen at the glenohumeral and acromioclavicular j oints. There is calcific tendinopathy. The overlying soft tissues are otherwise normal in appearance. The visualized left lung parenchyma appears clear. IMPRESSION: 1. No acute bony abnormality is identified. 2. Calcific tendinopathy. Electronically signed by: Ede Mcknight M.D. 11/16/2022 8:23 AM
--- NOTE | 2022-11-16 08:51 | XRay Report ---
SINGLE VIEW CHEST CLINICAL HISTORY: Atypical chest pain. FINDINGS: An AP, portable, upright chest radiograph is compared to study dated 05/30/2022 and correlat ed with chest CT dated 01/07/2021. The heart is enlarged noting atherosclerotic calcification of the t horacic aorta. The pulmonary vasculature is nondistended congested. Chronic interstitial thickening i s similar to previous. There is bibasilar scarring/atelectasis. No airspace consolidation or large pl eural effusion is identified. No pneumothorax is seen. The skeletal structures are osteopenic. The [place] thorax is grossly intact. A round splenic calcification is seen in the left upper quadrant. IMPRESSION: Cardiomegaly with no active disease in the chest. ACT 112: Negative or not required by law. Electronically signed by: Ede Mcknight M.D. 11/16/2022 8:50 AM
[2022-11-16] MEDS: RANOLAZINE 500 MG ER TAB PO SCH ×2 (09:37→20:57)
[2022-11-16] MEDS: TAMSULOSIN HCL 0.4 MG CAP PO SCH (09:37)
[2022-11-16] MEDS: METOPROLOL SUCC 50MG EXT REL TAB PO SCH ×2 (09:37→20:57)
[2022-11-16] MEDS: ENOXAPARIN INJ 40 MG/0.4 ML SYR SQ SCH (09:41)
--- NOTE | 2022-11-16 10:17 | Cardiology Consultation ---
Date of Consultation November 16, 2022 Assessment & Plan (1) Elevated troponin: (2) Arm pain: (3) CAD, multiple vessel: (4) Ischemic cardiomyopathy: (5) Dilated aortic root: Plan 1. Elevated troponin: Does have some mildly elevated troponins. However, the degree of elevation seems out of proportion to his symptoms were this to be an acute coronary event. He had several hours of discomfort leading up to his evaluation in only mild elevation in his biomarkers. He is known to have severe coronary disease and I suspect any stress would result in some elevated biomarkers. The marker seem to have plateaued. Think it would obtain another reading another 6 hours and that is improved and his symptoms have not recurred they can probably be discounted altogether. 2. Arm pain: This did appear to be truly reproducible. Even this morning with palpation of the shoulder were able to reproduce the same discomfort. Improved with narcotics. He has had other joint pains and has undergone injection therapy. He may benefit from seeing his orthopedic surgeon for additional tr eatment. He does have some other arm symptoms that seem to be associated with activity. This could be an anginal equivalent or again an orthopedic issue. However, these symptoms are fairly mild and brief in duration. He may have to accept some element of angina given his notable coronary disease. 3. Coronary artery disease: Apparently not a good candidate for revascularization. He has been maintained on an aggressive regimen for secondary prevention and antianginal therapy which can be continued. 4. Dilated aortic root. Measured 4.4 cm on the last study. Given his arm discomfort and known aortic root dilation with mild elevation of biomarkers would seem reasonable to repeat the study as it has been almost 2 years. 5. Ischemic cardiomyopathy: Last evaluation revealed normal LV systolic function. No current symptoms suggestive of decompensation or worsening LV function. History of Present Illness Reason for Consultation: Elevated troponin Requesting Physician: Tran Attending Physician: Jonny Mayfield MD History of Present Illness The patient is a 71-year-old gentleman with an extensive history of coronary artery disease status post percutaneous intervention x2. He reported being at home last evening when he developed some left shoulder discomfort at rest. This started out as a fairly mild discomfort but progressed in severity over the course of several hours. He tried some remedies such as Tylenol and ice application. This did not improve his symptoms. He did not find any specific position more comfortable than another. The symptoms were not associated with dyspnea, diaphoresis or dizziness. He cannot recall similar symptoms in the recent past. As result of the severity he presented to the emergency room for evaluation. He was administered morphine and Zofran with near total relief of the left shoulder discomfort. It was described as reproducible on examination by the admission team. The patient states that he does have some left forearm and elbow discomfort with activity. This also involves a numbness in the 4th and 5th digits on the left hand. He generally walks on a regular basis. He tends to get this left forearm discomfort during that activity. He also rides a stationary bike and this tends to produce fewer symptoms. He has some chronic dyspnea which apparently is unchanged appear he denies dizziness or palpitations. He also has some lower extremity discomfort and knee pain which limits his activity. 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 Currently feeling well with only mild discomfort in the left shoulder. Allergies Allergy/AdvReac Type Severity Reaction Status Date / Time No Known Allergies Allergy Mild Verified 11/16/22 00:15 Home Medications Medication Instructions Recorded Confirmed Type aflibercept 2 mg/0.05 mL 2 mg intravitreal UD 04/10/19 11/16/22 History intravitreal solution for injection (Eylea) aspirin 81 mg tablet,delayed 81 mg PO QPM #30 tabs 04/10/19 11/16/22 History release cholecalciferol (vitamin D3) 125 5,000 units PO QAM 04/10/19 11/16/22 History mcg (5,000 unit) capsule cyanocobalamin (vitamin B-12) 1,000 mcg PO QAM 07/04/19 11/16/22 History 1,000 mcg tablet Dexcom G6 Retail Loss Prevention Officer (blood-glucose #1 ea 12/26/19 10/11/22 Rx meter,continuous) tamsulosin 0.4 mg capsule (Flomax) 0.4 mg PO DAILY #30 caps 06/13/22 11/16/22 Rx V-GO 40 (sub-q insulin device, 40 #90 ea 11/07/22 Rx unit) clopidogrel 75 mg tablet (Plavix) 75 mg PO HS #90 tabs 11/07/22 11/16/22 Rx insulin glargine 100 unit/mL (3 20 unit (0.2 mL) subcut HS 90 days 11/07/22 11/16/22 Rx mL) subcutaneous pen (Lantus #30 mL Solostar U-100 Insulin) liraglutide 0.6 mg/0.1 mL (18 mg/3 1.8 mg (0.3 mL) subcut QAM #27 mL 11/07/22 11/16/22 Rx mL) subcutaneous pen injector (Victoza 3-Jose) metoprolol succinate 100 mg 100 mg PO BID #180 tabs 11/07/22 11/16/22 Rx tablet,extended release 24 hr nitroglycerin 0.4 mg sublingual 0.4 mg sublingual UD PRN Angina 11/07/22 11/16/22 Rx tablet #25 tabs ranolazine 1,000 mg 1,000 mg PO BID #180 tabs 11/07/22 11/16/22 Rx tablet,extended release,12 hr rosuvastatin 40 mg tablet 40 mg PO HS #90 tabs 11/07/22 11/16/22 Rx insulin lispro 100 unit/mL 0 unit continuous subcutaneous 11/16/22 11/16/22 History subcutaneous solution (Humalog infusion CONTINOUS U-100 Insulin) Patient History Medical History (Updated 11/16/22 @ 03:57 by Quyen Jessica DO) AMS (altered mental status) Angina pectoris Ascending aortic aneurysm 4.4cm - CTA chest, 2020. CAD, multiple vessel Cardiac murmur Chronic low back pain Claudication of both lower extremities Decreased cardiac ejection fraction 40% > yearly Echo Diabetes mellitus, type 2 Dilated aortic root Expressive aphasia Hyperlipidemia Hypertension Hypokalemia Ischemic cardiomyopathy Kidney stones Lumbar facet joint syndrome Macular degeneration Myocardial Infarction unsure when--follows with Dr. Hart Sleep apnea cpap Somatic dysfunction of lower extremities TIA (transient ischemic attack) Surgical History History of appendectomy History of arthroscopy right knee History of cardiac cath 06/2010 @ [facility] 09/2010 @ [facility] 2017@ [facility] > 2 stents total History of colonoscopy History of eye surgery left "laser for macular degenration" History of heart artery stent 06/2010 x1 stent 09/2010 x1 stent History of hernia repair History of lithotripsy History of wisdom tooth extraction Family History Grandmother (Maternal) Family history of diabetes mellitus Brother Family history of diabetes mellitus Sister Family history of diabetes mellitus Mother , in her early 80s Family hx of colon cancer Stroke Father , the patient knows little to nothing of his father or his father's medical history No problems noted. Other Cancer Diabetes Kidney disease No family history of adverse response to anesthesia Denies family history of Tuberculosis Allergies Emphysema of lung Lung disease Asthma Social History Smoking Status: Never smoker Tobacco Type: Cigarettes Age Quit Using Tobacco: 26; packs per day: 1; Second Hand Exposure: No; Hx Alcohol Use: Yes Alcohol type: beer and wine Alcohol Intake Frequency: Monthly or Less Alcohol Intake Frequency Comment: patient averages 1-2 beers per week. 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 Mood and affect appeared normal. He answered all questions appropriately. HEENT: Pupils are equal and reactive to light and accommodation. Extraocular movements are intact. The sclerae are anicteric. Neuro: Cranial nerves intact Lungs: Clear to auscultation bilaterally. He has good air movement without use of accessory muscles. No rales wheezes or rhonchi. Left shoulder tender to palpation posteriorly. Cardiac: Heart demonstrates a regular rate and rhythm. Normal S1 and S2. No murmurs on examination. Pulses: The patient has palpable radial pulses bilaterally that are equal in intensity Extremities: There was no evidence of hypoperfusion. There is no cyanosis or clubbing. There is no edema. Skin: I did not appreciate any rashes on examination today. Results & Data Vital Signs (Past 12 Hours) Vital Signs Temp Pulse Pulse Resp BP BP Pulse Ox 11/16/22 09:00 88 17 96 11/16/22 08:00 14 96 11/16/22 08:00 114/72 11/16/22 08:38 84 11/16/22 07:00 80 17 96 11/16/22 06:00 75 15 97 11/16/22 06:00 123/62 11/16/22 05:00 72 14 96 11/16/22 04:28 138/72 11/16/22 04:28 89 20 98 11/16/22 04:00 69 23 96 11/16/22 04:00 130/70 11/16/22 03:31 69 18 97 11/16/22 03:31 122/60 11/16/22 03:01 72 14 95 11/16/22 03:01 129/70 11/16/22 03:00 70 17 95 11/16/22 02:30 71 16 116/70 96 11/16/22 01:30 72 18 132/69 90 11/16/22 00:40 75 11/16/22 00:08 93 11/15/22 23:11 36.2 C L 84 18 135/84 96 O2 Del Method 11/16/22 09:00 11/16/22 08:00 11/16/22 08:00 11/16/22 08:38 11/16/22 07:00 11/16/22 06:00 11/16/22 06:00 11/16/22 05:00 11/16/22 04:28 11/16/22 04:28 11/16/22 04:00 11/16/22 04:00 11/16/22 03:31 11/16/22 03:31 11/16/22 03:01 11/16/22 03:01 11/16/22 03:00 11/16/22 02:30 11/16/22 01:30 Room Air 11/16/22 00:40 11/16/22 00:08 Room Air 11/15/22 23:11 Room Air Laboratory Results Abnormal Lab Results 11/16/22 11/16/22 11/16/22 00:09 00:09 01:05 WBC 8.72 RBC 4.94 Hgb 15.4 Hct 45.0 MCV 91.1 MCH 31.2 MCHC 34.2 RDW Std Deviation 41.7 RDW Coeff of Damián 12.7 Plt Count 207 MPV 9.9 Immature Gran % (Auto) 0.3 Neut % (Auto) 49.9 Lymph % (Auto) 36.2 [place] % (Auto) 11.0 Eos % (Auto) 1.8 Baso % (Auto) 0.8 Neut # (Auto) 4.34 Lymph # (Auto) 3.16 [place] # (Auto) 0.96 H Eos # (Auto) 0.16 Baso # (Auto) 0.07 Immature Gran # (Auto) 0.03 Sodium 140 Potassium 4.2 Chloride 110 H Carbon Dioxide 23 Anion Gap 7 BUN 27 H Creatinine 1.38 Est Cr Clr Drug Dosing 67.3 Est GFR ( Amer) 59.6 Est GFR (Non-Af Amer) 51.4 BUN/Creatinine Ratio 19.6 Glucose 236 H POC Glucose Calcium 8.7 Magnesium Total Bilirubin 0.4 AST 18 ALT 14 Alkaline Phosphatase 49 Troponin I High Sens 22.0 H 41.0 H D Total Protein 6.7 Albumin 3.8 Globulin 2.9 Albumin/Globulin Ratio 1.3 Lipase 75 SARS-CoV-2, RNA, NAAT 11/16/22 11/16/22 11/16/22 02:26 04:14 09:37 WBC RBC Hgb Hct MCV MCH MCHC RDW Std Deviation RDW Coeff of Damián Plt Count MPV Immature Gran % (Auto) Neut % (Auto) Lymph % (Auto) [place] % (Auto) Eos % (Auto) Baso % (Auto) Neut # (Auto) Lymph # (Auto) [place] # (Auto) Eos # (Auto) Baso # (Auto) Immature Gran # (Auto) Sodium Potassium Chloride Carbon Dioxide Anion Gap BUN Creatinine Est Cr Clr Drug Dosing Est GFR ( Amer) Est GFR (Non-Af Amer) BUN/Creatinine Ratio Glucose POC Glucose 149 H Calcium Magnesium 1.9 Total Bilirubin AST ALT Alkaline Phosphatase Troponin I High Sens 107.0 H* D Total Protein Albumin Globulin Albumin/Globulin Ratio Lipase SARS-CoV-2, RNA, NAAT NEGATIVE Diagnostic Findings Chest x-ray and shoulder series were obtained the time admission which did not reveal any acute cardiopulmonary process or acute shoulder process. Echocardiogram performed 03/03/2022: Mildly dilated left ventricle with ejection fraction of 55-60%. Normal wall motion. Mild LVH. Mild left atrial dilation. Trace aortic insufficiency. Echocardiogram performed today: Preserved LV systolic function without regional wall motion abnormality. Mild aortic regurgitation. Mild aortic root dilation. Stage I diastolic dysfunction Chest CT performed 01/07/2021: Ascending aorta 4.4 cm X dense of coronary artery calcification Cardiac catheterization 02/11/2017: Sequential 90+ % stenosis in the left anterior descending, 70% mid circumflex and 80% ostial OM1. 50% mid ramus stenosis. Ostial RCA disease estimated at 99%. 70% stenosis in a small posterolateral branch. ECG Additional Comments: EKG demonstrated normal sinus rhythm without acute ST or T-wave changes. PG Care Time/CCT Total # of Minutes Spent Total Time Spent with Patient: Total time spent is greater than 50% in coordination of care (as documented) at patient's floor/unit and/or counseling patient: Coding Level of Care Code 12798 INT INP/OBS CARE 3/75MIN Diagnoses Elevated troponin R77.8 Arm pain M79.602 Laterality: left CAD, multiple vessel I25.10 Ischemic cardiomyopathy I25.5 Dilated aortic root I77.810 (2) Arm pain Laterality: left Qualified Code(s): M79.602 - Pain in left arm
[2022-11-16] MEDS: [UNRECOGNIZED DRUG - OTHER] SCH ×4 (10:41→20:58)
--- NOTE | 2022-11-16 10:52 | XCELERA ---
[id number]
[2022-11-16] MEDS ORDERED: OPTIRAY 320 500ml IV ONE (11:32)
--- NOTE | 2022-11-16 12:05 | Electrocardiogram Report ---
Test Reason : Blood Pressure : / mmHG Vent. Rate : 082 BPM Atrial Rate : 082 BPM P-R Int : 134 ms QRS Dur : 094 ms QT Int : 392 ms P-R-T Axes : 025 -11 046 degrees QTc Int : 457 ms Normal sinus rhythm Normal ECG When compared with ECG of 02-MAR-2022 11:05, Minimal criteria for Inferior infarct are no longer Present Confirmed by Rom Ashby ([id number]) on 11/16/2022 12:05:05 PM Referred By: REFERRED SELF Confirmed By:Milton Ashby
--- NOTE | 2022-11-16 13:58 | CT Scan Report ---
CT ANGIOGRAPHY OF THE CHEST, PULMONARY EMBOLUS PROTOCOL CLINICAL HISTORY: Left arm pain . Evaluate aortic root and arch. COMPARISON STUDY: Chest CT January 07, 2021. Chest radiograph November 16, 2022. TECHNIQUE: Following IV administration of 117 mL of Optiray, helical axial images of the chest were o btained utilizing the pulmonary embolus protocol. Maximal intensity projections and sagittal and cor onal reformats were viewed on an independent 3D workstation. IV contrast was administered without co mplication. Automated exposure control was utilized for the study. A dose lowering technique was ut ilized adhering to the principles of ALARA. CT DOSE: 964.35 mGy.cm FINDINGS: There is no thoracic aortic dissection. The aorta measures 4.4 cm at the level of the main pulmonary artery. This is unchanged since CT of January 07, 2021. There is extensive coronary artery aubrey cification. No pulmonary emboli are present. There is no pericardial effusion. Borderline cardiomegal y is noted. There is no thoracic lymphadenopathy. No pneumothorax or pleural effusion is present. The re is no consolidation to suggest pneumonia. No acute fractures within the visualized bony thorax are present. A peripherally calcified 2.5 cm splenic lesion remains unchanged. This is likely benign. Up per abdomen is unremarkable. IMPRESSION: 1. No thoracic aortic dissection. No change in mild aneurysmal dilatation of the ascending aorta, aurora suring 4.4 cm, since CT of January 07, 2021. 2. Extensive coronary artery calcification. 3. No pulmonary emboli identified. ACT 112: Negative or not required by law. Electronically signed by: Earl Mckeon M.D. 11/16/2022 1:57 PM
[2022-11-16] MEDS ORDERED: traMADol HCL 50 MG TABLET PO STA (15:21)
[2022-11-16] MEDS ORDERED: traMADol HCL 50 MG TABLET PO PRN (17:51)
[2022-11-16] MEDS ORDERED: CLOPIDOGREL BISULFATE 75 MG TAB PO SCH (21:00)
[2022-11-16] MEDS ORDERED: ASPIRIN 81 MG ECTAB PO SCH (21:00)
[2022-11-16] MEDS ORDERED: ROSUVASTATIN CALCIUM 20 MG TAB PO SCH (21:00)
[2022-11-17 06:04] LABS: Hematocrit (blood only) 44.1 % (42.0-52.0); Hemoglobin 14.9 g/dl (14.0-18.0); Mean Corpuscular Hemoglobin 30.9 pg (25.0-34.0); Mean Corpuscular Hgb Conc 33.8 g/dL (32.0-36.0); Mean Corpuscular Volume 91.5 fL (80.0-100.0); Mean Platelet Volume 9.6 fL (9.4-12.4); Platelet Count 185 K/uL (130-400); RDW Coefficient of Variation 12.5 % (11.5-14.5); RDW Standard Deviation 42.5 fL (36.4-46.3); Red Blood Count 4.82 M/uL (4.70-6.10); White Blood Count 7.41 K/ul (4.8-10.8)
[2022-11-17 06:21] LABS: Albumin Level 3.6 gm/dl (3.4-5.0); BUN Creatinine Ratio 18.2 (10-20); Bilirubin Direct 0.1 mg/dl (0-0.2); Bilirubin,Total 0.5 mg/dl (0.2-1.0); Calcium 8.5 mg/dl (8.6-10.3); Creatinine Clr Calc Pharmacy 62.8 ml/min; Est GFR (African American) 54.8 ml/min; Est GFR (Non-African American) 47.3 ml/min; Potassium 4.1 mmol/L (3.5-5.1); Total Protein 6.4 gm/dl (6.0-8.3)
[2022-11-17 06:28] LABS: Troponin I High Sensitivity 153.3 pg/ml (0-20)
[2022-11-17] MEDS: [UNRECOGNIZED DRUG - OTHER] SCH (08:18)
[2022-11-17] MEDS: ENOXAPARIN INJ 40 MG/0.4 ML SYR SQ SCH (08:19)
[2022-11-17 09:13] VITALS: TEMP 98.1; O2SAT 93
[2022-11-17] MEDS: METOPROLOL SUCC 50MG EXT REL TAB PO SCH (09:13)
[2022-11-17] MEDS: TAMSULOSIN HCL 0.4 MG CAP PO SCH (09:13)
[2022-11-17] MEDS: RANOLAZINE 500 MG ER TAB PO SCH (09:13)
[2022-11-17 11:11] VITALS: BP 112/68; PULSE 67
--- NOTE | 2022-11-17 12:22 | Discharge Summary ---
Date of Service November 17, 2022 Admission HPI Per Admitting Provider Chidi Salazar is a pleasant 71yo male with history of multivessel CAD s/p multiple stents, ischemic cardiomyopathy, HTN, HLP, DM and dilated aortic root and ascending aorta. Patient presents this evening complaining of left shoulder pain. He reports occasional left forearm pain that starts in the lateral elbow and radiates down the forearm and into the 4th and 5th digits of the left hand. He also has occasional numbness of the left 4th and 5th fingers. This evening he had severe pain in the left shoulder with radiation down the left arm with associated numbness of the left 4th and 5th fingers. Patient denies trauma. No chest pain, no worsening SOB, no palpitations. He denies abdominal pain, nausea, vomiting, diarrhea or constipation. Patient has chronic dyspnea with exertion - becomes short of breath after walking approximately 100 feet. He denies exertional chest pain. Patient is compliant with his cardiac medication regimen. He follows routinely with Cardiology. Denies edema, orthopnea, weight gain. No additional complaints at this time. In the ER he is afebrile, HD stable, NAD. Troponin increased from 22 -->41 after appx 1 hour ER Course: ASA 324mg Zofran 4mg IV Morphine 4mg IV Principal Diagnosis musculoskeletal shoulder pain elevated troponin, demand ischemia Discharge Exam Patient awake alert and appropriate no further chest pain shoulder pain is improved with Ultram therapy and some prescribed at discharge. is present during discharge discussion and seems satisfied Discharge Data Allergies Allergy/AdvReac Type Severity Reaction Status Date / Time No Known Allergies Allergy Mild Verified 11/16/22 00:15 Consultations 11/16/22 02:25 ED Decision to Admit Stat 11/16/22 03:17 Consult Cardiology Routine Ordered Studies 11/16/22 10:58 CT angio chest PE protocol Routine Hospital Course (1) Elevated troponin: acute issue, undetermined significance, cardiology does not feel this is cardiogenic arm pain associated is reproducible, improved with ultram ordered prn Hstrop 22-41-100- 275- 153 EKG with no obvious ischemic changes. Remains on ASA/Plavix, metoprolol, statin, ranexa, is insulin requiring diabetic Chronic Coronary Artery disease, Cardiology note 09/02/22: CAD status post RCA PCI x2: No angina. He has significant CAD involving multiple coronary arteries. He was deemed not to be an interventional candidate by an sewer connector in [place] in February of 2017. He was deemed not a CT surgery candidate for revascularization by [facility], doctors Sp and Seng, in February of 2017. Medical therapy has been recommended. Has a history of chronic/stable angina that has resolved with titration of antianginal medication (most recently Ranexa). Continue metoprolol succinate 100 mg twice daily. Has not tolerated nitrate therapy due to headaches. Continue Ranexa 1000 mg twice daily. Could consider addition of calcium channel gulshan if further antianginal medical therapy is warranted. Continue aspirin 81 mg daily. He was also placed on Plavix by interventional Cardiology in February of 2017 and is tolerating it well. Continue statin therapy. Call 911 for angina that does not resolve within 5 minutes of nitroglycerin Echocardiogram from 02/2022 with mildly dilated LV with normal systolic function - EF 55-60%. No regional WMA. Mild left atrial dilation and trace aortic regurgitation. Ct chest to eval aortic arch, No thoracic aortic dissection. No change in mild aneurysmal dilatation of the ascending aorta, measuring 4.4 cm, since CT of January 07, 2021. Cardiology visit during this hospital stay does not feel this is unstable angina. Did recommend evaluation of the aortic arch which as above. We will have outpatient follow-up with his primary care provider and cardiology (2) Arm pain: Acute, undetermined significance Most likely musculoskeletal. Patient's initial left elbow --> forearm pain with numbness of 4th and 5th digits most likely ulnar neuropathy. His muscle strength and coordination are intact. Patient may consider EMG and ultrasound outpatient. Referred patient to sports medicine (3) Type 2 diabetes mellitus: Chronic. stable Fairly well controlled with last HgbA1C on 09/20/22 = 7.4 -Patient may use own insulin pump (4) Hypertension: Chronic and stable (5) REED (obstructive sleep apnea): Chronic. Patient reports compliance with his CPAP at night -Continue CPAP qHS l Total Time Total Time Spent Total Time Spent (In Minutes): It required greater than 30 minutes to prepare this patient for discharge Discharge Plan Discharge Items Patient Disposition: Home - Self-Care Reason For Visit: SHOULDER PAIN Discharge Diagnosis: musculoskeletal shoulder pain elevated troponin, demand ischemia Activity: Per Instructions section Activity Comment: please limit shoulder activity until seen by sports medicine Non-emergency contact: Primary Care Provider Call non-emergency contact if: your symptoms worsen Follow-up/Referrals: Howard Del Castillo MD [Primary Care Provider] - 11/25/22 10:30 am Joe Xiong MD [Physician] - 11/24/22 2:20 pm (Please arrive 15 minutes prior to appointment time) Diet: Carb Consistent or DM2 Addtl Attending Provider Instructions: please follow up with sports medicine for shoulder pain and hand numbness, you may use tylenol and ultram for pain relief also follow up wiht Dr Sheth for your cardiology needs Pending Studies at Discharge: No Stand-Alone Forms: My [email or web address], Smoking Cessation Medications and DC Order Prescriptions: New tramadol 50 mg tablet 50 mg PO TID PRN (Reason: pain) Qty: 20 0RF Continued (DME) Dexcom G6 Sound Editor Misc See Rx Instructions .ROUTE .MEDSUPPLY Qty: 1 0RF Rx Instructions: As directed tamsulosin [Flomax] 0.4 mg capsule 0.4 mg PO DAILY Qty: 30 2RF clopidogrel [Plavix] 75 mg tablet 75 mg PO HS Qty: 90 3RF metoprolol succinate 100 mg tablet extended release 24 hr 100 mg PO BID Qty: 180 3RF nitroglycerin 0.4 mg tablet, sublingual 0.4 mg SL UD PRN (Reason: Angina) Qty: 25 5RF Rx Instructions: 0.4 mg SL VERY 5 MINUTES FOR UP TO 3 DOSES PRN FOR CHEST PAIN. CALL 911 IF PAIN PERSISTS; ranolazine 1,000 mg tablet extended release 12 hr 1,000 mg PO BID Qty: 180 3RF rosuvastatin 40 mg tablet 40 mg PO HS Qty: 90 3RF insulin glargine [Lantus Solostar U-100 Insulin] 100 unit/mL (3 mL) insulin pen 20 unit SQ HS 90 Days Qty: 30 1RF Victoza 3-Jose 0.6 mg/0.1 mL (18 mg/3 mL) pen injector 1.8 mg subcut QAM Qty: 27 1RF Hold Instructions: pt condition change (DME) V-GO 40 Device See Rx Instructions .ROUTE .MEDSUPPLY Qty: 90 1RF Rx Instructions: use 1 daily aspirin 81 mg tablet,delayed release (DR/EC) 81 mg PO QPM Qty: 30 Eylea 2 mg/0.05 mL solution 2 mg intravitreal UD Patient Comments: 2 mg intravitreal Daily 5-6 weeks ; Rx Instructions: 2 mg intravitreal once every 5-6 weeks ; cholecalciferol (vitamin D3) 5,000 unit capsule 5,000 units PO QAM cyanocobalamin (vitamin B-12) 1,000 mcg tablet 1,000 mcg PO QAM insulin lispro [Humalog U-100 Insulin] 100 unit/mL solution 0 unit continuous subcutaneous infusion CONTINOUS Rx Instructions: via V-Go pump Discharge Orders: Discharge Order (Routine); Ordered 11/17/22 Ordered By: Jonny Mayfield Admission Data Admit Date/Time: 11/16/22 02:58 Attending Provider: Jonny Mayfield Admit Provider: Quyen Jessica Primary Care Provider: Howrad Del Castillo V. Other Providers: Mike Hart ; Quyen Jessica Other Interventions: Discharge Summary Assessment (RN) Last Done: 11/17/22 11:08 Coding Level of Care Code 17508 INP/OBS DISCH >30 MIN Diagnoses Elevated troponin R77.8 Arm pain M79.602 Laterality: left Type 2 diabetes mellitus E11.9 Hypertension I10 REED (obstructive sleep apnea) G47.33
== END 2022-11-17 11:56 | disposition home or self-care (01) ==
LOC: ED 23:10 → EDINP 23:10 → SUATTDRO 11-16 02:58 → 2N 11-16 13:56
DX: E11.9 Type 2 diabetes mellitus without complications; I25.10 Atherosclerotic heart disease of native coronary artery without angina pectoris; M25.512 Pain in left shoulder; I24.8 Other forms of acute ischemic heart disease; Z95.5 Presence of coronary angioplasty implant and graft; Z79.899 Other long term (current) drug therapy; Z20.822 Contact with and (suspected) exposure to COVID-19; Z79.82 Long term (current) use of aspirin; I10 Essential (primary) hypertension; R77.8 Other specified abnormalities of plasma proteins; Z79.4 Long term (current) use of insulin; E78.5 Hyperlipidemia, unspecified; G47.33 Obstructive sleep apnea (adult) (pediatric); Z79.02 Long term (current) use of antithrombotics/antiplatelets